=== PATIENT | female | born 1950 | race Caucasian/White ===

== ENCOUNTER 2018-10-18 10:49 | Inpatient (IN) ==
[2018-10-18] MEDS ORDERED: ALBUT/IPRATROP 3MG/0.5MG NEB 3 ML VIAL NEB ONE (11:26)
[2018-10-18] MEDS ORDERED: cefTRIAXone SODIUM 1,000 MG/50 ML BAG IV STA (11:26)
[2018-10-18] MEDS ORDERED: methylPREDNISolone 60 MG in SYRINGE 1 ML IV STA (11:26)
[2018-10-18 11:27] LABS: Hematocrit (blood only) 44.1 % (37-47); Hemoglobin 13.9 g/dL (12.0-16.0); Immature Granulocytes # (auto) 0.03 K/uL (0.00-0.02); Immature Granulocytes % (auto) 0.4 %; Lymphocytes # (auto) 0.48 K/uL (1.2-3.4); Lymphocytes % (auto) 6.9 %; Mean Corpuscular Hgb Conc 31.5 g/dL (32-36); Mean Corpuscular Volume 78.2 fL (80-100); Mean Platelet Volume 10.4 fL (7.4-10.4); Monocytes # (auto) 0.38 K/uL (0.11-0.59); Monocytes % (auto) 5.5 %; Neutrophils # (auto) 6.03 K/uL (1.4-6.5); Neutrophils % (auto) 87.2 %; Platelet Count 198 K/uL (130-400); RDW Coefficient of Variation 17.5 % (11.5-14.5); RDW Standard Deviation 49.4 fL (36.4-46.3); Red Blood Count 5.64 M/uL (4.2-5.4); White Blood Count 6.92 K/uL (4.8-10.8)
--- NOTE | 2018-10-18 11:37 | XRay Report ---
XR chest 1V portable HISTORY: shortness of breah COMPARISON: Chest 10/16/2018. FINDINGS: Emphysema. No pneumothorax. No pleural effusions. The heart is normal in size. Bibasilar in terstitial thickening persists. No new focal lung consolidations. No evidence for pulmonary edema. IMPRESSION: No significant change compared to the prior study. No acute process. Emphysema and bibasilar intersti tial thickening persists. Electronically signed by: Harish Alcantara M.D. 10/18/2018 11:36 AM
[2018-10-18 11:45] LABS: BUN Creatinine Ratio 24.7 (10-20); Blood Urea Nitrogen 13 mg/dl (7-18); Calcium 9.5 mg/dl (8.5-10.1); Carbon Dioxide 35 mmol/L (21-32); Chloride 86 mmol/L (98-107); Creatinine Clr Calc Pharmacy 66.1 ml/min; Est GFR (African American) 116.1; Est GFR (Non-African American) 100.2; Glucose 169 mg/dl (70-99); Potassium 4.3 mmol/L (3.5-5.1); Sodium 126 mmol/L (136-145)
[2018-10-18 11:52] LABS: Troponin I < 0.015 ng/ml (0-0.045)
[2018-10-18] MEDS ORDERED: SODIUM CHLORIDE 0.9% 1000ML 500 ML IV ONE (11:56)
--- NOTE | 2018-10-18 13:49 | History & Physical Report ---
Date of Service October 18, 2018 Assessment & Plan (1) Respiratory distress: Patient with tachypnea, increased work of breathing. Diffuse wheezing in bilateral lung soler. Most likely secondary to acute exacerbation of COPD/Emphysema. Patient with no evidence of PNA, CHF, PTX. Low clinical suspicion for PE. Presently improved after placement of Vapotherm - 30% FiO2, 25 lpm -Admit to PCU -High flow nasal cannula - patient unable to tolerate BiPAP in the past. Goal saturation 88 - 92%, patient is a chronic CO2 retainer. Encourage use of high flow nasal cannula -DuoNeb q 4 hours -Albuterol q 1 hour PRN -Solumedrol 15mg IV TID -Azithromycin 250mg IV daily -Magnesium 1gm IV x 1 dose -Continuous pulse oximetry -Smoking cessation encouraged Present on Admission?: Yes (2) COPD exacerbation: As above -Nebs, steroids, Azithromycin Present on Admission?: Yes (3) Hyponatremia: Patient with hyponatremia in the past. 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 She was on salt tablets in the past but has not been taking them lately. No neurological symptoms or seizures with her Na level of 126. -Salt tablets 1gm po BID -Repeat chemistry in AM -Continue to monitor Present on Admission?: Yes (4) HTN (hypertension): Blood pressure elevated at present in setting of acute respiratory distress -Continue Lisinopril daily -Continue Metoprolol -Continue to monitor Present on Admission?: Yes (5) Anxiety: Chronic -Continue Ativan PRN -Patient may need additional dosing if she becomes acutely anxious Present on Admission?: Yes (6) CAD (coronary artery disease): Patient with no CP, EKG with no evidence of ischemia, troponin negative -Continue ASA 81mg po daily -Continue Metoprolol -Continue Lisinopril F/E/N - Heplock. Monitor electrolytes, Na tablets as above, 1gm Mg as above, check PO4 x 1 and replete if needed, NPO for now while high flow nasal cannula in place. Will advance diet as tolerated to heart healthy with fluid restriction, Docusate PRN Ppx - Continue home Protonix Code - Full Dispo - Admit to PCU Present on Admission?: Yes History of Present Illness Chief Complaint: Respiratory distress, COPD exacerbation Primary Care Provider: Malinda Davis is a 68yo female with oxygen dependent COPD (4L NC at home), HTN, Hyponatremia, active smoker and CAD presenting with respiratory distress. Patient states that she became more short of breath approximately one week ago associated with dry cough and occasional chest tightness. Patient was seen in the ER on 10/16/18 and recommended admission to the hospital for management of SOB/COPD. Patient refused hospital admission at that time. She was treated with DuoNeb, Azithromycin, Magnesium and Solumedrol and discharged home with a steroid taper and Azithromycin. She reports progressive symptoms. Needed to increase her O2 to 5L at home last night. She denies fevers/chills/sweats/weight gain/orthopnea/palpitations/chest pain or allergy symptoms Upon arrival to the ER she was tachypneic in mild respiratory dist ress. She was administered Albuterol neb, Solumedrol and Ceftriaxone. She refused BiPAP as she has been unable to tolerate the mask in the past. She was placed on high flow nasal cannula with improvement in symptoms, however asked to be taken off that as well due to inability to tolerate. ER Course: Albuterol 12mL, Ceftriaxone 1gm, Solumedrol 80mg, NSS x 500mL Allergies Allergy/AdvReac Type Severity Reaction Status Date / Time levofloxacin [From Levaquin] AdvReac Severe "goes Unverified 10/18/18 12:19 crazy" Home Medications Home Medications Medication Instructions Recorded Confirmed Type alendronate 70 mg PO WK 03/12/18 10/18/18 History aspirin 81 mg PO QAM 03/12/18 10/18/18 History docusate sodium [Stool Softener] 100 mg PO QAM 03/12/18 10/18/18 History fluticasone propion-salmeterol 1 puff INHALATION Q12H 03/12/18 10/18/18 History ipratropium-albuterol 1 puff INHALATION Q6H 03/12/18 10/18/18 History ipratropium-albuterol 3 ml INHALATION QID PRN 03/12/18 10/18/18 History lisinopril 20 mg PO QAM 03/12/18 10/18/18 History lorazepam 0.5 mg PO TID PRN 10/20/18 05/28/19 History meloxicam 15 mg PO QAM 03/12/18 10/18/18 History metoprolol succinate 100 mg PO QAM 03/12/18 10/18/18 History pantoprazole 40 mg PO QAM 03/12/18 10/18/18 History acetaminophen [Tylenol Extra 500 mg PO Q6H PRN 08/16/18 10/18/18 History Strength] azithromycin [Zithromax Z-Luis] 250 mg PO DAILY 4 Days #4 tab 10/16/18 10/18/18 Rx prednisone 40 mg PO DAILY #10 tab 10/16/18 10/18/18 Rx Past Med/Surg History Medical History HTN (hypertension) (Chronic) Tobacco abuse (Chronic) Emphysema of lung (Chronic) Hypoxia (Acute) Anxiety H/O: hysterectomy Hyponatremia Asthma (Chronic) COPD (chronic obstructive pulmonary disease) (Chronic) 4L O2 at home Heart attack (Resolved) November 2017 COPD with acute exacerbation (Inactive) Surgical History History of ankle surgery Family History Other COPD (chronic obstructive pulmonary disease) Cancer Social History Preferred Language: Russian Communication Ability: Effective Visual Impairment: No Limitations Hearing Ability: Normal Beliefs That Will Affect Care: None marital status: Current Living Situation: Spouse Other Information That Helps Us Care for You: No Feels Safe at Home: Yes Safety Concerns: Feels Safe At This Time Smoking Status: Current every day smoker Tobacco Type: cigarettes Cigarettes Per Day: 12 Second Hand Exposure: Yes Hx Alcohol Use: Yes Alcohol type: beer Hx Substance Use: No Review of Systems Review of Systems: All systems reviewed & are unremarkable except as noted in HPI & below Physical Exam Physical Exam: General: patient tachypneic with conversational dyspnea, chronically ill in appearance, AA&O x 3 Skin: warm, dry, intact, no rashes or lesions HEENT: NC/AT, PERRL, EOMI, anicteric sclera, conjunctiva without injection, external ear normal to inspection and nontender, nares patent, dry mucus membranes, dentures in place, +white plaques on oral mucosa, neck supple, trachea midline, no LAD, no thyromegaly, no JVD Heart: +S1/S2, regular, no m/r/g Lungs: diminished breath sounds bilaterally, diffuse inspiratory and expiratory wheezing Abd: +BS, soft, NT/ND, no masses/organomegaly/ascites Ext: warm, 2+ pulses in UE/LE bilaterally, no clubbing/cyanosis or edema Neuro: nonfocal, patient AA&O x 4, speech intact, no facial droop, moving all extremities on command with equal strength 5/5 Results & Data Vital Signs (Past 12 Hours) Vital Signs Temp Pulse Pulse Resp BP Pulse Ox 10/18/18 13:01 92 H 29 H 179/98 H 99 10/18/18 13:00 92 H 26 H 99 10/18/18 12:31 88 25 H 189/90 H 100 10/18/18 12:30 88 24 100 10/18/18 12:12 82 24 174/80 H 100 10/18/18 12:00 91 H 21 100 10/18/18 11:50 83 22 98 10/18/18 11:30 83 26 H 97 10/18/18 11:01 94 H 20 184/89 H 96 10/18/18 11:00 85 25 H 96 10/18/18 10:58 36.5 C 83 26 H 168/93 H 94 Laboratory Results Lab Results 10/18/18 10/18/18 10/18/18 Range/Units 11:18 11:18 11:18 WBC 6.92 (4.8-10.8) K/uL RBC 5.64 H (4.2-5.4) M/uL Hgb 13.9 (12.0-16.0) g/dL Hct 44.1 (37-47) % MCV 78.2 L (80-100) fL MCH 24.6 L (25-34) pg MCHC 31.5 L (32-36) g/dL RDW Std Deviation 49.4 H (36.4-46.3) fL RDW Coeff of Va 17.5 H (11.5-14.5) % Plt Count 198 (130-400) K/uL MPV 10.4 (7.4-10.4) fL Immature Gran % (Auto) 0.4 % Neut % (Auto) 87.2 % Lymph % (Auto) 6.9 % Ray % (Auto) 5.5 % Eos % (Auto) 0.0 % Baso % (Auto) 0.0 % Immature Gran # (Auto) 0.03 H (0.00-0.02) K/uL Neut # (Auto) 6.03 (1.4-6.5) K/uL Lymph # (Auto) 0.48 L (1.2-3.4) K/uL Ray # (Auto) 0.38 (0.11-0.59) K/uL Eos # (Auto) 0.00 (0-0.5) K/uL Baso # (Auto) 0.00 (0-0.2) K/uL Sodium 126 L D (136-145) mmol/L Potassium 4.3 (3.5-5.1) mmol/L Chloride 86 L (98-107) mmol/L Carbon Dioxide 35 H (21-32) mmol/L Anion Gap 5.0 (3-11) BUN 13 D (7-18) mg/dl Creatinine 0.51 L (0.6-1.2) mg/dl Est Cr Clr Drug Dosing 66.1 ml/min Est GFR ( Amer) 116.1 Est GFR (Non-Af Amer) 100.2 BUN/Creatinine Ratio 24.7 H (10-20) Glucose 169 H (70-99) mg/dl Calcium 9.5 (8.5-10.1) mg/dl Magnesium 2.1 (1.8-2.4) mg/dl Troponin I < 0.015 (0-0.045) ng/ml Diagnostic Findings XR chest 1V portable HISTORY: shortness of breah COMPARISON: Chest 10/16/2018. FINDINGS: Emphysema. No pneumothorax. No pleural effusions. The heart is normal in size. Bibasilar interstitial thickening persists. No new focal lung consolidations. No evidence for pulmonary edema. IMPRESSION: No significant change compared to the prior study. No acute process. Emphysema and bibasilar interstitial thickening persists. Electronically signed by: Harish Alcantara M.D. 10/18/2018 11:36 AM Dictated: 10/18/18 1133 Transcribed: 10/18/18 1133 ECG Additional Comments: The study shows normal sinus rhythm at 85bpm, 1st degree AV block, normal axis, TC=375, QRS=88, WAa=171, no ischemic changes Code Status & VTE Plan Code Status FULL Critical Care Time Critical Care Time: No (1) CAD (coronary artery disease) Associated angina: without angina Coronary Disease-Associated Artery/Lesion type: [place] artery [place] vs. transplanted heart: jena heart Qualified Code(s): I25.10 - Atherosclerotic heart disease of [place] coronary artery without angina pectoris (2) HTN (hypertension) Hypertension type: essential hypertension Qualified Code(s): I10 - Essential (primary) hypertension
[2018-10-18] MEDS ORDERED: ACETAMINOPHEN 500 MG TAB PO PRN (15:14)
[2018-10-18] MEDS ORDERED: MAGNESIUM SULFATE / D5W 1 GM/100 ML BAG IV ONE (15:30)
--- NOTE | 2018-10-18 15:33 | Emergency Department Note ---
Entered by Ashlie Fajardo acting as a scribe for Zackery Cardona MD History of Present Illness General Chief complaint: Respiratory Distress Stated complaint: RESPIRATORY DISTRESS Time Seen by Provider: 10/18/18 11:16 Source: patient and old records reviewed History of Present Illness Provider complaint: respiratory distress Onset (ago): week(s) (over the last few weeks) Location: chest Pain Consistency: + other (worsening) Quality: + other (respiratory distress) Exacerbated By: + movement (walking) Associated symptoms: + cough; no fever/chills The patient is a 68 year old female who presents to the Emergency Department with complaints of worsening respiratory distress over the last few weeks. She states that she is on a Z-pack and steroids and states that she started these ye sterday. She states that she has been using nebulizers frequently. She states that she has not been febrile. She states that she has been coughing more than usual. The patient states that she usually wears 4L of Oxygen. The patient reports that her shortness of breath is exacerbated while she is walking. Review of EMR shows that the patient was seen here on the for a COPD exacerbation and hypoxia. She was advised to stay in the hospital but went home. The patient's blood cultures from 2 days ago are negative. Home Medications Home Medications Medication Instructions Recorded Confirmed Type alendronate 70 mg PO WK 03/12/18 10/18/18 History aspirin 81 mg PO QAM 03/12/18 10/18/18 History docusate sodium [Stool Softener] 100 mg PO QAM 03/12/18 10/18/18 History fluticasone propion-salmeterol 1 puff INHALATION Q12H 03/12/18 10/18/18 History ipratropium-albuterol 1 puff INHALATION Q6H 03/12/18 10/18/18 History ipratropium-albuterol 3 ml INHALATION QID PRN 03/12/18 10/18/18 History lisinopril 20 mg PO QAM 03/12/18 10/18/18 History lorazepam 0.5 mg PO TID PRN 03/12/18 10/18/18 History meloxicam 15 mg PO QAM 03/12/18 10/18/18 History metoprolol succinate 100 mg PO QAM 03/12/18 10/18/18 History pantoprazole 40 mg PO QAM 03/12/18 10/18/18 History acetaminophen [Tylenol Extra 500 mg PO Q6H PRN 08/16/18 10/18/18 History Strength] azithromycin [Zithromax Z-Luis] 250 mg PO DAILY 4 Days #4 tab 10/16/18 10/18/18 Rx prednisone 40 mg PO DAILY #10 tab 10/16/18 10/18/18 Rx Allergies Allergy/AdvReac Type Severity Reaction Status Date / Time levofloxacin [From Levaquin] AdvReac Severe "goes Unverified 10/18/18 12:19 crazy" Past Med/Surg History Medical History HTN (hypertension) (Chronic) Tobacco abuse (Chronic) Emphysema of lung (Chronic) Hypoxia (Acute) Anxiety H/O: hysterectomy Hyponatremia Asthma (Chronic) COPD (chronic obstructive pulmonary disease) (Chronic) 4L O2 at home Heart attack (Resolved) November 2017 COPD with acute exacerbation (Inactive) Surgical History History of ankle surgery Family History Other COPD (chronic obstructive pulmonary disease) Cancer Social History Preferred Language: Maori Communication Ability: Effective Visual Impairment: No Limitations Hearing Ability: Normal Beliefs That Will Affect Care: None marital status: Current Living Situation: Spouse Other Information That Helps Us Care for You: No Feels Safe at Home: Yes Safety Concerns: Feels Safe At This Time Smoking Status: Current every day smoker Tobacco Type: cigarettes Cigarettes Per Day: 12 Second Hand Exposure: Yes Hx Alcohol Use: Yes Alcohol type: beer Hx Substance Use: No Review of Systems See HPI for pertinent positives & negatives. and A total of 10 systems reviewed and were otherwise negative Physical Exam Vital Signs Vital Signs - 24 hr 10/18/18 10:58 10/18/18 11:00 10/18/18 11:01 Temperature 36.5 C Temperature Source Oral Sepsis Recent Fever Within 48 Hours No Sepsis Action Taken by Nursing No Action Required Pulse Rate 83 85 94 H Pulse Rate [Right Apical] Pulse Rate from SpO2 Sensor 84 85 93 H Pulse Rhythm Regular Pulse Strength Normal Respiratory Rate 26 H 25 H 20 Respiratory Effort / Characteristics Non-Labored Spontaneous Respiratory Depth Normal Respiratory Pattern Regular Blood Pressure 168/93 H 184/89 H Blood Pressure Mean 118 120 Blood Pressure Position Lying Pulse Oximetry 94 96 96 Oxygen Delivery Method Nasal Cannula Oxygen Flow Rate 4 10/18/18 11:30 10/18/18 11:50 10/18/18 12:00 Temperature Temperature Source Sepsis Recent Fever Within 48 Hours Sepsis Action Taken by Nursing Pulse Rate 83 91 H Pulse Rate [Right Apical] 83 Pulse Rate from SpO2 Sensor 78 90 Pulse Rhythm Pulse Strength Respiratory Rate 26 H 22 21 Respiratory Effort / Characteristics Spontaneous Short of Breath Respiratory Depth Respiratory Pattern Blood Pressure Blood Pressure Mean Blood Pressure Position Pulse Oximetry 97 98 100 Oxygen Delivery Method Nasal Cannula Oxygen Flow Rate 4 10/18/18 12:12 10/18/18 12:30 10/18/18 12:31 Temperature Temperature Source Sepsis Recent Fever Within 48 Hours Sepsis Action Taken by Nursing Pulse Rate 82 88 88 Pulse Rate [Right Apical] Pulse Rate from SpO2 Sensor 84 88 88 Pulse Rhythm Pulse Strength Respiratory Rate 24 24 25 H Respiratory Effort / Characteristics Respiratory Depth Respiratory Pattern Blood Pressure 174/80 H 189/90 H Blood Pressure Mean 111 123 Blood Pressure Position Pulse Oximetry 100 100 100 Oxygen Delivery Method Oxygen Flow Rate 10/18/18 13:00 10/18/18 13:01 10/18/18 13:02 Temperature Temperature Source Sepsis Recent Fever Within 48 Hours Sepsis Action Taken by Nursing Pulse Rate 92 H 92 H 91 H Pulse Rate [Right Apical] Pulse Rate from SpO2 Sensor 92 H 93 H 92 H Pulse Rhythm Pulse Strength Respiratory Rate 26 H 29 H 30 H Respiratory Effort / Characteristics Respiratory Depth Respiratory Pattern Blood Pressure 179/98 H Blood Pressure Mean 125 Blood Pressure Position Pulse Oximetry 99 99 99 Oxygen Delivery Method Oxygen Flow Rate 10/18/18 13:30 10/18/18 13:31 Temperature Temperature Source Sepsis Recent Fever Within 48 Hours Sepsis Action Taken by Nursing Pulse Rate 95 H 95 H Pulse Rate [Right Apical] Pulse Rate from SpO2 Sensor 95 H 95 H Pulse Rhythm Pulse Strength Respiratory Rate 26 H 26 H Respiratory Effort / Characteristics Respiratory Depth Respiratory Pattern Blood Pressure 168/105 H Blood Pressure Mean 126 Blood Pressure Position Pulse Oximetry 88 L 84 L Oxygen Delivery Method Oxygen Flow Rate GENERAL: Patient is in mild to moderate respiratory distress. HEENT: No acute trauma, normocephalic atraumatic, mucous membranes moist, no nasal congestion, no scleral icterus. NECK: No stridor, no adenopathy, no meningismus, trachea is midline. LUNGS: Increased respiratory rate. Wheezing bilaterally. Diminished breath sounds bilaterally. Shortness of breath with speaking. Mild to moderate respiratory distress. HEART: Without murmurs gallops or rubs, regular rate and rhythm. ABDOMEN: Soft, nontender, bowel sounds positive, no hernias, no peritonitis. EXTREMITIES: No cyanosis or edema, full range of motion of all the joints without pain or difficulty, no signs for acute trauma. NEUROLOGIC: Oriented x 3, no acute motor or sensory deficits, no focal weakness. SKIN: No rash, no jaundice, no diaphoresis. Course 1121: The patient was evaluated in room C6. A history and physical were per formed. 1202: I updated the patient who verbalized agreement and understanding of the treatment plan. 1218: I discussed the patient's case with Dr. Peter Rogers who will evaluate the patient for further management. 1321: The patient is on Vapotherm. Consultations Consultation #1: Dr. Peter Rogers Time: 12:18 Administered Medications Albuterol (Duoneb) 3 ml NEB Q4R RAJAN Stop: 11/17/18 15:59 Last Admin: 10/18/18 15:43 Dose: 3 ml Documented by: [id number] Nicotine (Nicoderm Cq) 21 mg TD QAM RAJAN Stop: 11/17/18 15:13 Last Admin: 10/18/18 16:31 Dose: 21 mg Documented by: [id number] Discontinued Medications Albuterol (Duoneb) 12 ml NEB ONE ONE Stop: 10/18/18 11:27 Last Admin: 10/18/18 11:49 Dose: 12 ml Documented by: [id number] Ceftriaxone Sodium (Rocephin) 1,000 mg in 50 mls @ 100 mls/hr IV NOW STA Stop: 10/18/18 11:55 Last Infusion: 10/18/18 12:47 Dose: 0 mls/hr Documented by: [id number] Admin: 10/18/18 12:12 Dose: 100 mls/hr Documented by: [id number] Methylprednisolone 60 mg/ (Syringe) 1.96 mls @ 1.5 mls/min IV NOW STA Stop: 10/18/18 11:27 Last Admin: 10/18/18 12:12 Dose: Not Given Documented by: [id number] Sodium Chloride (Nss 1000ml) 500 mls @ 999 mls/hr IV .Q31M ONE Stop: 10/18/18 12:26 Last Infusion: 10/18/18 12:47 Dose: 0 mls/hr Documented by: [id number] Admin: 10/18/18 12:12 Dose: 999 mls/hr Documented by: [id number] Magnesium Sulfate/Dextrose (Magnesium Sulfate / D5w) 1 gm in 100 mls @ 100 mls/hr IV TODAY@1530 ONE Stop: 10/18/18 16:29 Last Admin: 10/18/18 16:31 Dose: 100 mls/hr Documented by: [id number] Methylprednisolone (Solumedrol) Confirm Administered Dose 80 mg .ROUTE .STK-MED ONE Stop: 10/18/18 12:12 Last Admin: 10/18/18 12:12 Dose: 60 mg Documented by: [id number] Medical Decision Making Differential Diagnosis Differentials include COPD exacerbation, bronchitis, pneumonia, CHF, anemia, electrolyte imbalance, and PR. Medical Records Attestation: I reviewed the patient's medical records. Home Medications Current Medication List: was personally reviewed by me Laboratory Data Attestation: I reviewed the patient's lab results. Result diagrams: 10/18/18 11:18 10/18/18 11:18 Lab Results 10/18/18 10/18/18 10/18/18 Range/Units 11:18 11:18 11:18 WBC 6.92 (4.8-10.8) K/uL RBC 5.64 H (4.2-5.4) M/uL Hgb 13.9 (12.0-16.0) g/dL Hct 44.1 (37-47) % MCV 78.2 L (80-100) fL MCH 24.6 L (25-34) pg MCHC 31.5 L (32-36) g/dL RDW Std Deviation 49.4 H (36.4-46.3) fL RDW Coeff of Va 17.5 H (11.5-14.5) % Plt Count 198 (130-400) K/uL MPV 10.4 (7.4-10.4) fL Immature Gran % (Auto) 0.4 % Neut % (Auto) 87.2 % Lymph % (Auto) 6.9 % [place] % (Auto) 5.5 % Eos % (Auto) 0.0 % Baso % (Auto) 0.0 % Immature Gran # (Auto) 0.03 H (0.00-0.02) K/uL Neut # (Auto) 6.03 (1.4-6.5) K/uL Lymph # (Auto) 0.48 L (1.2-3.4) K/uL [place] # (Auto) 0.38 (0.11-0.59) K/uL Eos # (Auto) 0.00 (0-0.5) K/uL Baso # (Auto) 0.00 (0-0.2) K/uL Sodium 126 L D (136-145) mmol/L Potassium 4.3 (3.5-5.1) mmol/L Chloride 86 L (98-107) mmol/L Carbon Dioxide 35 H (21-32) mmol/L Anion Gap 5.0 (3-11) BUN 13 D (7-18) mg/dl Creatinine 0.51 L (0.6-1.2) mg/dl Est Cr Clr Drug Dosing 66.1 ml/min Est GFR ( Amer) 116.1 Est GFR (Non-Af Amer) 100.2 BUN/Creatinine Ratio 24.7 H (10-20) Glucose 169 H (70-99) mg/dl Calcium 9.5 (8.5-10.1) mg/dl Phosphorus (2.5-4.9) mg/dl Magnesium 2.1 (1.8-2.4) mg/dl Troponin I < 0.015 (0-0.045) ng/ml 10/18/18 Range/Units 11:18 WBC (4.8-10.8) K/uL RBC (4.2-5.4) M/uL Hgb (12.0-16.0) g/dL Hct (37-47) % MCV (80-100) fL MCH (25-34) pg MCHC (32-36) g/dL RDW Std Deviation (36.4-46.3) fL RDW Coeff of Va (11.5-14.5) % Plt Count (130-400) K/uL MPV (7.4-10.4) fL Immature Gran % (Auto) % Neut % (Auto) % Lymph % (Auto) % [place] % (Auto) % Eos % (Auto) % Baso % (Auto) % Immature Gran # (Auto) (0.00-0.02) K/uL Neut # (Auto) (1.4-6.5) K/uL Lymph # (Auto) (1.2-3.4) K/uL [place] # (Auto) (0.11-0.59) K/uL Eos # (Auto) (0-0.5) K/uL Baso # (Auto) (0-0.2) K/uL Sodium (136-145) mmol/L Potassium (3.5-5.1) mmol/L Chloride (98-107) mmol/L Carbon Dioxide (21-32) mmol/L Anion Gap (3-11) BUN (7-18) mg/dl Creatinine (0.6-1.2) mg/dl Est Cr Clr Drug Dosing ml/min Est GFR ( Amer) Est GFR (Non-Af Amer) BUN/Creatinine Ratio (10-20) Glucose (70-99) mg/dl Calcium (8.5-10.1) mg/dl Phosphorus 2.2 L (2.5-4.9) mg/dl Magnesium (1.8-2.4) mg/dl Troponin I (0-0.045) ng/ml Imaging Data Radiologist's Impression: Radiology results as stated below per my review and the radiologist's interpretation: XR chest 1V portable HISTORY: shortness of breah COMPARISON: Chest 10/16/2018. FINDINGS: Emphysema. No pneumothorax. No pleural effusions. The heart is normal in size. Bibasilar interstitial thickening persists. No new focal lung consolidations. No evidence for pulmonary edema. IMPRESSION: No significant change compared to the prior study. No acute process. Emphysema a nd bibasilar interstitial thickening persists. Electronically signed by: Harish Alcantara M.D. 10/18/2018 11:36 AM ECG Data Attestation: I personally reviewed and interpreted this ECG as follows: Indication: SOB/dyspnea Rate (beats per minute): 85 Rhythm: normal sinus Findings: no PVC and no ST elevation Blood Pressure Blood Pressure Findings: Elevated blood pressure Blood Pressure Disposition: further management by hospitalist [facility] Narrative There is no leukocytosis or concerning anemia. Renal panel testing shows a low sodium at 126, she has had a low sodium value in the past, this is a drop from just a few days ago. No kidney failure. EKG shows a sinus rhythm, no acute ischemia. Cardiac enzyme testing x1 is not consistent with acute cardiac injury. Chest film shows chronic findings, no CHF, no pneumothorax, no obvious new pneumonia. On exam, the patient appeared to be in some mild to moderate respiratory distress. She was speaking in short sentences with an increased respiratory rate. The patient was aggressively managed. She received IV Solu-Medrol, IV ceftriaxone. She received IV saline. She was given a 1 hour DuoNeb. I did suggest BiPAP but the patient refused. The patient, despite the nebulizer treatment, was still quite winded. She did consent to Vapotherm treatment, this was initiated by respiratory. Patient still did not want to attempt BiPAP. The patient deserves a hospital stay. She has an acute bronchitis with an exacerbation of her COPD. She presents in mild to moderate respiratory distress. She is hyponatremic. Hospitalization is warranted. I spoke to the patient and case management. The on-call hospitalist was cons ulted. Impression & Plan Respiratory distress, Hyponatremia, COPD exacerbation, Failure of outpatient treatment Critical Care Time I have personally spent 35 minutes of critical care time in the direct management of this patient. This includes bedside care, interpretation of diagnostic studies, and testing, discussion with consultants, patient, and family members, and other required patient management activities. This 35 minutes is in excess of all separately billable procedures. Critical Care Time: Yes Total Critical Care Time: 35 Discharge Plan Visit Data *Final* Discharge Date/Time: 10/18/18 14:55 Chief Complaint: Respiratory Distress Stated Complaint: RESPIRATORY DISTRESS ED Provider: Zackery Cardona Discharge Problem: Respiratory distress, Hyponatremia, COPD exacerbation, Failure of outpatient treatment Patient Disposition: Admitted As Inpatient Discharge Instructions Interventions: ED Discharge Assessment Last Done: 10/18/18 14:55 The surajibe's documentation has been prepared under my direction and personally reviewed by me in its entirety. I confirm that the note above accurately reflects all work, treatment, procedures, and medical decision making performed by me.
[2018-10-18] MEDS: ALBUT/IPRATROP 3MG/0.5MG NEB 3 ML VIAL NEB SCH ×3 (15:43→22:40)
[2018-10-18] MEDS: NICOTINE 21 MG/24 HR TDSY TD SCH (16:31)
[2018-10-18] MEDS: LORazepam 0.5 MG TAB PO PRN (17:03)
[2018-10-18] MEDS: ALBUTEROL 0.5% NEB SOLN 2.5 MG/0.5 ML VIAL NEB PRN ×2 (17:12→20:45)
[2018-10-18] MEDS ORDERED: methylPREDNISolone 15 MG in SYRINGE 0 ML IV ONE (20:00)
[2018-10-18] MEDS: SODIUM CHLORIDE 1 GM TABLET PO SCH (20:15)
[2018-10-18] MEDS ORDERED: methylPREDNISolone 15 MG in SYRINGE 0 ML IV SCH (21:00)
[2018-10-19] MEDS: ALBUTEROL 0.5% NEB SOLN 2.5 MG/0.5 ML VIAL NEB PRN (00:03)
[2018-10-19] MEDS: LORazepam 0.5 MG TAB PO PRN (00:31)
[2018-10-19] MEDS ORDERED: methylPREDNISolone 80 MG in SYRINGE 0 ML IV ONE (01:00)
[2018-10-19] MEDS: ALBUTEROL 0.083% NEBU SOLN 3 ML VIAL NEB PRN ×3 (01:59→05:44)
[2018-10-19] MEDS: ALBUT/IPRATROP 3MG/0.5MG NEB 3 ML VIAL NEB SCH ×5 (03:14→19:08)
[2018-10-19] MEDS ORDERED: methylPREDNISolone 30 MG in SYRINGE 0 ML IV SCH (04:00)
[2018-10-19] MEDS: LORazepam 1 MG/2 ML VIAL IV PRN ×2 (06:07→12:18)
[2018-10-19 06:58] LABS: Hematocrit (blood only) 36.3 % (37-47); Hemoglobin 11.7 g/dL (12.0-16.0); Immature Granulocytes # (auto) 0.01 K/uL (0.00-0.02); Immature Granulocytes % (auto) 0.2 %; Lymphocytes # (auto) 0.44 K/uL (1.2-3.4); Lymphocytes % (auto) 8.2 %; Mean Corpuscular Hgb Conc 32.2 g/dL (32-36); Mean Corpuscular Volume 77.2 fL (80-100); Mean Platelet Volume 9.6 fL (7.4-10.4); Monocytes # (auto) 0.18 K/uL (0.11-0.59); Monocytes % (auto) 3.3 %; Neutrophils # (auto) 4.76 K/uL (1.4-6.5); Neutrophils % (auto) 88.3 %; Platelet Count 157 K/uL (130-400); RDW Coefficient of Variation 17.1 % (11.5-14.5); RDW Standard Deviation 48.9 fL (36.4-46.3); White Blood Count 5.39 K/uL (4.8-10.8)
[2018-10-19 07:31] LABS: BUN Creatinine Ratio 34.8 (10-20); Calcium 8.3 mg/dl (8.5-10.1); Creatinine Clr Calc Pharmacy 109.1 ml/min; Est GFR (African American) 136.8; Potassium 4.1 mmol/L (3.5-5.1)
[2018-10-19] MEDS: METOPROLOL SUCC 50MG EXT REL TAB PO SCH (08:55)
[2018-10-19] MEDS: SODIUM CHLORIDE 1 GM TABLET PO SCH ×2 (08:56→21:45)
[2018-10-19] MEDS: NICOTINE 21 MG/24 HR TDSY TD SCH (08:56)
[2018-10-19] MEDS: methylPREDNISolone 60 MG in SYRINGE 0 ML IV SCH ×3 (08:56→21:44)
[2018-10-19] MEDS: LISINOPRIL 20 MG TAB PO SCH (08:56)
[2018-10-19] MEDS ORDERED: MELOXICAM 7.5 MG TAB PO SCH (09:00)
[2018-10-19] MEDS ORDERED: PANTOprazole 40 MG TAB PO SCH (09:00)
[2018-10-19] MEDS ORDERED: DOCUSATE SODIUM 100 MG CAP PO SCH (09:00)
[2018-10-19] MEDS ORDERED: ASPIRIN 81 MG ECTAB PO SCH (09:00)
[2018-10-19] MEDS: AZITHROMYCIN 250 MG in DEXTROSE 5% 250 ML IV SCH (09:18)
[2018-10-19] MEDS ORDERED: HydrALAZINE 10 MG TAB PO PRN (10:55)
--- NOTE | 2018-10-19 13:04 | Hospitalist Progress Note ---
Date of Service October 19, 2018 Assessment & Plan (1) Respiratory distress: Patient with tachypnea, increased work of breathing. Diffuse wheezing in bilateral lung soler on admission. Most likely secondary to acute exacerbation of COPD/Emphysema. Patient with no evidence of PNA, CHF, PTX. Was initially on Vapotherm - 30% FiO2, 25 lpm. - Continue DuoNeb standing and PRN, Solumedrol, & Azithromycin - Smoking cessation encouraged - Down to 5L NC the morning of 10/19, but needed high flow again in the afternoon. (2) COPD exacerbation: As above. Chronic respiratory failure with hypoxia. -Nebs, steroids, Azithromycin (3) Hyponatremia: Patient with hyponatremia in the past. 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 She was on salt tablets in the past but has not been taking them lately. No neurological symptoms or seizures with her Na level of 126. - Salt tablets 1gm po BID - On 10/19, Na was up to 129. (4) HTN (hypertension): Blood pressure elevated at present in setting of acute respiratory distress. - Continue Lisinopril daily - Continue Metoprolol - Hydralazine PRN (5) Anxiety: Chronic. - Continue Ativan PRN - Patient may need additional dosing if she becomes acutely anxious (6) CAD (coronary artery disease): Patient with no CP, EKG with no evidence of ischemia, & troponin negative. - Continue ASA 81mg po daily - Continue metoprolol - Continue lisinopril (7) DVT prophylaxis: SCDs - Low DVT risk per admission calculator Subjective Still short of breath. Not much better from when she came in. Review of Systems Review of Systems: All systems reviewed & are unremarkable except as noted in HPI & below Physical Exam Constitutional: WD/WN, vitals as above Eyes: EOM intact bilaterally; no conjunctival abnormality ENMT: external ear and nose normal, oropharynx normal Neck: trachea midline, no thyromegaly normal visual inspection Respiratory: normal respiratory effort, lungs clear to auscultation + labored breathing, + uses accessory muscles and + prolonged expiratory phase; + not able to speak in complete sentence Auscultation: + diminished lung sounds and + rhonchi; no wheezes Cardiovascular: RRR, no murmur, no edema Gastrointestinal (Abdomen): Inspection/Auscultation: abdomen normal to inspection; abdomen not distended Musculoskeletal: no cyanosis or clubbing, extremities motor strength 5/5 Skin: no rashes, warm and dry Neurologic: moves all extremities and awake Psychiatric: Orientation: alert, oriented to person and cooperative Results & Data Vital Signs (Past 12 Hours) Vital Signs Temp Pulse Pulse Resp BP BP Pulse Ox 10/19/18 11:05 88 28 H 97 10/19/18 10:17 36.8 C 86 22 193/96 H 201/89 H 97 10/19/18 08:30 10/19/18 07:29 36.6 C 92 H 18 174/88 H 99 10/19/18 07:05 103 H 10/19/18 07:00 55 L 26 H 95 10/19/18 05:46 94 H 26 H 92 10/19/18 04:41 100 H 26 H 90 10/19/18 04:20 36.8 C 88 19 175/90 H 97 10/19/18 03:15 88 24 98 10/19/18 02:00 92 H 20 95 Pulse Ox 10/19/18 11:05 10/19/18 10:17 10/19/18 08:30 98 10/19/18 07:29 10/19/18 07:05 10/19/18 07:00 10/19/18 05:46 10/19/18 04:41 10/19/18 04:20 10/19/18 03:15 10/19/18 02:00 (1) HTN (hypertension) Hypertension type: essential hypertension Qualified Code(s): I10 - Essential (primary) hypertension (2) CAD (coronary artery disease) Coronary Disease-Associated Artery/Lesion type: [place] artery Platinum vs. transplanted heart: [place] heart Associated angina: without angina Qualified Code(s): I25.10 - Atherosclerotic heart disease of [place] coronary artery without angina pectoris
[2018-10-19 15:25] LABS: HCO3 ABG 38 mmol/L (19-24); Oxygen Saturation ABG 93.6 % (90-95); PCO2 ABG 67 mmHg (35-46); PO2 ABG 69 mm/Hg (80-95); pH ABG 7.37 (7.35-7.45)
[2018-10-19] MEDS ORDERED: HydrALAZINE HCL 20 MG/ML VIAL IV ONE (15:48)
[2018-10-19] MEDS ORDERED: HydrALAZINE HCL 20 MG/ML VIAL ONE (15:49)
[2018-10-19 16:20] LABS: Allen Test Pos (Pos)
--- NOTE | 2018-10-19 16:59 | Critical Care Consultation ---
Date of Consultation October 19, 2018 Assessment & Plan (1) Anxiety: (2) Bronchitis: (3) Respiratory distress: (4) Hyponatremia: (5) Acute on chronic respiratory failure with hypoxia and hypercapnia: (6) Failure of outpatient treatment: (7) Admitted to intensive care unit: 68 yo female patient with known CPOD admitted with acute on chronic respiratory failure likely secondary to COPD continued tobacco abuse and hypertensive urgency. Neurology Will attempt a precedex drip at low dose. ativan 0.5 mg PRN TID respiratory BIPAP / with 40% FIO2 continuous nebulization add symbicort high dose for the LABA effect continue solumedrol 60 mg IV Q6 add daliresp 250 mg PO daily continue duoneb Q4R CV hydralazine to control BP if precedex does not achieve SBP 130/80 continue home meds of lisinopril 20 mg daily and ASA 81 mg daily Will check LDL GI NPO for now pantoprazole 40 mg PO renal FU and replete lyes maintian UO >0.5 ml/Kg-hr ID will continue emperic zithromax DVT prophylaxis with lovenox 30 mg daily she has PIV Will monitor in ICU CCT is 50 minutes History of Present Illness Reason for Consultation: Acute on chronic respiratory failure Requesting Physician: Adama Bai MD Attending Physician: Isidoro Bai MD History of Present Illness This is a 68 yo female patient who is reported to have COPD on home O2 at 4 lit/min, HTn, CAD and continues to smoke. The history is obtained from the chart as patient is now placed on BIPAP. She developed acute worsening of SOB about a week ago and visited the ED where she got steroids Magnesium, solumedrol, nebulizers and was discharged on prednisone taper and zithromax in addition to her home meds of advair 500/50 on 10/16/18 However, she failed to improve and was increasing her O2 to 5lpm yesterday so she was admitted and placed on IV steroids duonebs zothromax and did not tolerate BIPAP or high flow. She had received a dose of ceftriaxone in the ED. She continued to fair bad on the floor and this afternoon she was wheezing and using accessory muscles so we brought her to the ED and placed her on BIPAP as well as continuous nebulization. Patient indicates she has no cp or abdominal pain but is SOB. Allergies Allergy/AdvReac Type Severity Reaction Status Date / Time levofloxacin [From Levaquin] AdvReac Severe "goes Unverified 10/18/18 12:19 crazy" Home Medications Home Medications Medication Instructions Recorded Confirmed Type alendronate 70 mg PO WK 03/12/18 10/18/18 History aspirin 81 mg PO QAM 03/12/18 10/18/18 History docusate sodium [Stool Softener] 100 mg PO QAM 03/12/18 10/18/18 History fluticasone propion-salmeterol 1 puff INHALATION Q12H 03/12/18 10/18/18 History ipratropium-albuterol 1 puff INHALATION Q6H 03/12/18 10/18/18 History ipratropium-albuterol 3 ml INHALATION QID PRN 03/12/18 10/18/18 History lisinopril 20 mg PO QAM 03/12/18 10/18/18 History lorazepam 0.5 mg PO TID PRN 03/12/18 10/18/18 History meloxicam 15 mg PO QAM 03/12/18 10/18/18 History metoprolol succinate 100 mg PO QAM 03/12/18 10/18/18 History pantoprazole 40 mg PO QAM 03/12/18 10/18/18 History acetaminophen [Tylenol Extra 500 mg PO Q6H PRN 08/16/18 10/18/18 History Strength] azithromycin [Zithromax Z-Luis] 250 mg PO DAILY 4 Days #4 tab 10/16/18 10/18/18 Rx prednisone 40 mg PO DAILY #10 tab 10/16/18 10/18/18 Rx Patient History Medical History HTN (hypertension) (Chronic) Tobacco abuse (Chronic) Emphysema of lung (Chronic) Hypoxia (Acute) Anxiety H/O: hysterectomy Hyponatremia Asthma (Chronic) COPD (chronic obstructive pulmonary disease) (Chronic) 4L O2 at home Heart attack (Resolved) November 2017 COPD with acute exacerbation (Inactive) Surgical History History of ankle surgery Family History Other COPD (chronic obstructive pulmonary disease) Cancer Social History Preferred Language: Gabonese Communication Ability: Effective Visual Impairment: No Limitations Hearing Ability: Normal Beliefs That Will Affect Care: None marital status: Current Living Situation: Spouse Other Information That Helps Us Care for You: No Feels Safe at Home: Yes Safety Concerns: Feels Safe At This Time Smoking Status: Current every day smoker Tobacco Type: cigarettes Cigarettes Per Day: 12 Second Hand Exposure: Yes Hx Alcohol Use: Yes Alcohol type: beer Hx Substance Use: No Review of Systems Review of Systems: Unobtainable due to mental health condition Physical Exam Physical Exam: cachectic lady with use of accessory muscles in moderate distress Eyes: PERRL, conjunctivae normal, anicteric sclerae Neck: trachea midline, no thyromegaly Respiratory: + labored breathing, + retractions and + uses accessory muscles Auscultation: + rhonchi Cardiovascular: Rate/Rhythm: regular rate Heart Sounds: normal S1 and normal S2 Gastrointestinal (Abdomen): Inspection/Auscultation: abdomen normal to inspection and normal bowel sounds Musculoskeletal: no cyanosis or clubbing, extremities motor strength 5/5 Neurologic: anxious and in distress but moves all 4 extremities to commands Results & Data Vital Signs (Past 12 Hours) Vital Signs Temp Pulse Pulse Resp BP BP Pulse Ox 10/19/18 15:48 195/92 H 10/19/18 15:20 89 26 H 93 10/19/18 14:59 37.2 C 86 20 206/107 H 95 10/19/18 14:31 93 H 212/110 H 10/19/18 11:05 88 28 H 97 10/19/18 10:17 36.8 C 86 22 193/96 H 201/89 H 97 10/19/18 08:30 10/19/18 07:29 36.6 C 92 H 18 174/88 H 99 10/19/18 07:05 103 H 10/19/18 07:00 55 L 26 H 95 10/19/18 05:46 94 H 26 H 92 10/19/18 04:41 100 H 26 H 90 Pulse Ox 10/19/18 15:48 10/19/18 15:20 10/19/18 14:59 10/19/18 14:31 10/19/18 11:05 10/19/18 10:17 10/19/18 08:30 98 10/19/18 07:29 10/19/18 07:05 10/19/18 07:00 10/19/18 05:46 10/19/18 04:41
[2018-10-19] MEDS ORDERED: HydrALAZINE HCL 20 MG/ML VIAL IV PRN (17:01)
[2018-10-19] MEDS ORDERED: DEXMEDETOMIDINE HCL 200 MCG in SODIUM CHLORIDE 0.9% 48 ML IV SCH (17:15)
[2018-10-19] MEDS ORDERED: RAPID SEQUENCE INDUCTION BAG ONE (17:45)
[2018-10-19] MEDS ORDERED: PROPOFOL IV EMULSION 10 MG/ML 100 ML VIAL IV ONE (17:58)
[2018-10-19] MEDS ORDERED: PROPOFOL 1,000 MG/100 ML VIAL IV STA (18:26)
[2018-10-19] MEDS ORDERED: MIDAZOLAM HCL 125 MG/250 ML BAG IV STA (18:26)
[2018-10-19] MEDS ORDERED: MIDAZOLAM HCL 125MG/250ML D5W ONE (18:27)
[2018-10-19] MEDS: ROFLUMILAST 500 MCG TAB PO SCH (18:34)
--- NOTE | 2018-10-19 18:37 | XRay Report ---
XR chest 1V portable HISTORY: intubation and NG COMPARISON: Chest 10/10/2018. FINDINGS: The endotracheal tube terminates 2.9 cm from the juan [place]isco. Nasogastric tube terminates below the diaphragm. The tip is not included on this study. Emphysema. No pneumothorax. No pleural effusion s. Mild interstitial thickening which is likely chronic. The heart is normal in size. IMPRESSION: Satisfactory support line placement. Electronically signed by: Harish Alcantara M.D. 10/19/2018 6:36 PM
[2018-10-19 21:51] LABS: iSTAT Allen Test Pass; iSTAT Arterial Blood Gas HCO3 38 meg/L (19-24); iSTAT Carbon Dioxide 39 mEq/l (24-31); iSTAT FiO2 40 %; iSTAT Site R Radial
[2018-10-19] MEDS: BUDESONIDE/FORMOTEROL FUMARATE 160/4.5 60 PUFFS/INHALER INH SCH (22:48)
[2018-10-20] MEDS: PROPOFOL 1,000 MG/100 ML VIAL IV PRN ×2 (01:33→12:20)
[2018-10-20] MEDS: ALBUT/IPRATROP 3MG/0.5MG NEB 3 ML VIAL NEB SCH ×8 (01:45→23:18)
[2018-10-20] MEDS: methylPREDNISolone 60 MG in SYRINGE 0 ML IV SCH ×4 (04:07→21:16)
[2018-10-20 05:47] LABS: Hematocrit (blood only) 36.7 % (37-47); Hemoglobin 11.9 g/dL (12.0-16.0); Mean Corpuscular Hgb Conc 32.4 g/dL (32-36); Mean Corpuscular Volume 75.5 fL (80-100); Mean Platelet Volume 9.7 fL (7.4-10.4); Platelet Count 193 K/uL (130-400); RDW Coefficient of Variation 17.1 % (11.5-14.5); RDW Standard Deviation 47.7 fL (36.4-46.3); Red Blood Count 4.86 M/uL (4.2-5.4); White Blood Count 8.14 K/uL (4.8-10.8)
[2018-10-20 06:05] LABS: BUN Creatinine Ratio 25.5 (10-20); Calcium 8.1 mg/dl (8.5-10.1); Creatinine Clr Calc Pharmacy 49.1 ml/min; Est GFR (African American) 87.7; Est GFR (Non-African American) 75.7
[2018-10-20 07:05] LABS: Potassium 3.4 mmol/L (3.5-5.1)
[2018-10-20] MEDS: BUDESONIDE/FORMOTEROL FUMARATE 160/4.5 60 PUFFS/INHALER INH SCH ×2 (07:13→19:19)
[2018-10-20] MEDS: METOPROLOL SUCC 50MG EXT REL TAB PO SCH (07:58)
[2018-10-20] MEDS: LISINOPRIL 20 MG TAB PO SCH (07:58)
[2018-10-20] MEDS ORDERED: POTASSIUM PHOS 3 MMOL/1 ML INFUSION IV STA (08:46)
[2018-10-20] MEDS ORDERED: POTASSIUM PHOSPHATE 21 MMOL in SODIUM CHLORIDE 0.9% 500 ML IV SCH (09:15)
[2018-10-20] MEDS: ASPIRIN 81 MG CHEW NG SCH (09:37)
[2018-10-20] MEDS: fentaNYL citrate 100 MCG/2 ML VIAL IV PRN ×3 (09:37→14:48)
[2018-10-20] MEDS: DOCUSATE SODIUM SYRUP 100 MG/10 ML UDC NG SCH (09:37)
[2018-10-20] MEDS: AZITHROMYCIN 250 MG in DEXTROSE 5% 250 ML IV SCH (09:37)
[2018-10-20] MEDS: NICOTINE 21 MG/24 HR TDSY TD SCH (09:38)
[2018-10-20] MEDS: ROFLUMILAST 500 MCG TAB PO SCH (09:38)
[2018-10-20] MEDS: SODIUM CHLORIDE 1 GM TABLET PO SCH ×2 (09:38→21:15)
[2018-10-20] MEDS: LANSOPRAZOLE 30 MG SOLTAB NG SCH (09:38)
[2018-10-20 11:04] LABS: iSTAT Art Bld Gas pCO2 Correct 60 mmHg (35-46); iSTAT Art Bld Gas pH Corrected 7.407 (7.35-7.45); iSTAT Arterial Blood Gas pCO2 60 mmHg (35-46); iSTAT Arterial Blood Gas pH 7.41 (7.35-7.45)
[2018-10-20 12:07] LABS: Partial Thromboplastin Ratio 0.9; Partial Thromboplastin Time 24.2 Seconds (21.0-31.0); Prothrombin Time 10.1 Seconds (9.0-12.0)
[2018-10-20] MEDS: HEPARIN SOD 5,000 UNIT/0.5 ML VIAL SQ SCH ×2 (12:28→21:17)
[2018-10-20] MEDS ORDERED: IMPACT LIQD 1.0 CAL 1,000 ML BAG OG SCH (12:30)
--- NOTE | 2018-10-20 12:35 | Critical Care Progress Note ---
Date of Service October 20, 2018 Assessment & Plan (1) Anxiety: (2) Bronchitis: (3) Respiratory distress: (4) Hyponatremia: (5) Acute on chronic respiratory failure with hypoxia and hypercapnia: (6) Failure of outpatient treatment: (7) Admitted to intensive care unit: 68 yo female patient with known CPOD admitted with acute on chronic respiratory failure likely secondary to COPD continued tobacco abuse and hypertensive urgency. Neurology On propfol and fentanyl Will transition to precedex and fentanyl and do SBT respiratory MV RR down to 16 TV 400 PEEP 5 FIO2 now 30% add symbicort high dose for the LABA effect when off vent continue solumedrol 60 mg IV Q6 add daliresp 250 mg PNG daily continue duoneb Q4R CV Hold antihypertensives GI nutrition consult for feeds prevacid via NG renal FU and replete terrell ayala UO >0.5 ml/Kg-hr today K and P were repleted ID will continue emperic zithromax until procalcitonin result FU BC DVT prophylaxis with heparin SC she has PICC line placed Will monitor in ICU CCT is 45 minutes Subjective Patient ended up needing intubation yesterday and was difficult to sedate. However She has adequate pH CO2 and oxygenation. Her vent setting are now at 420 FIo2 30 and RR 20 She is tolerating that. She is unable to offer complaints. PICC line inserted and procalcitonin pending and will adjust antibiotics accordingly Physical Exam Eyes: PERRL, conjunctivae normal, anicteric sclerae Neck: trachea midline, no thyromegaly Respiratory: Auscultation: + rhonchi Intubated sedated and now has clear air entry biaterally she is not breathing over the vent Cardiovascular: Rate/Rhythm: regular rate Heart Sounds: normal S1 and normal S2 Gastrointestinal (Abdomen): Inspection/Auscultation: abdomen normal to inspection and normal bowel sounds Musculoskeletal: no cyanosis or clubbing, extremities motor strength 5/5 Results & Data Vital Signs (Past 12 Hours) Vital Signs Temp Pulse Resp BP Pulse Ox 10/20/18 11:25 36.9 C 95 H 152/90 H 99 10/20/18 11:21 93 H 81/37 L 91 10/20/18 11:12 23 10/20/18 10:30 87 89/55 L 94 10/20/18 10:14 100 H 166/83 H 96 10/20/18 10:00 88 100 10/20/18 09:00 36.7 C 94 H 124/87 98 10/20/18 08:00 91 H 88/56 L 100 10/20/18 07:25 82 20 100 10/20/18 07:00 83 89/57 L 100 10/20/18 06:20 92 H 20 114/66 100 10/20/18 05:15 91 H 20 97 10/20/18 05:00 97 H 20 164/90 H 10/20/18 04:00 36.8 C 79 20 90/57 L 99 10/20/18 03:00 84 81/54 L 99 10/20/18 02:00 89 120/67 98 10/20/18 01:54 86 10/20/18 01:45 94 H 22 97 10/20/18 01:00 78 85/56 L 100
--- NOTE | 2018-10-20 13:03 | XRay Report ---
XR chest 1V portable HISTORY: intubated COMPARISON: Chest 10/19/2018. FINDINGS: Endotracheal tube terminates 3.5 cm from the juan francisco. A right PICC terminates in the expecte d location of the SVC. Nasogastric tube terminates below the diaphragm. The tip is not included on th is study. Mild emphysema. No pneumothorax. No pleural effusions. Mild initial thickening persists. No new focal lung consolidations. IMPRESSION: Satisfactory support line placement. Electronically signed by: Harish Alcantara M.D. 10/20/2018 1:01 PM
--- NOTE | 2018-10-20 13:13 | Hospitalist Progress Note ---
Date of Service October 20, 2018 Assessment & Plan (1) Respiratory distress: Patient with tachypnea, increased work of breathing. Diffuse wheezing in bilateral lung soler on admission. Most likely secondary to acute exacerbation of COPD/Emphysema. Patient with no evidence of PNA, CHF, PTX. Was initially on Vapotherm - 30% FiO2, 25 lpm. - Continue DuoNeb standing and PRN, Solumedrol, & Azithromycin - Smoking cessation encouraged - Down to 5L NC the morning of 10/19, but needed high flow again in the afternoon. - On 10/19, had to go to ICU for increased work of breathing. Trialed high flow & BiPap, but did not tolerate. Intubated overnight. - Mechanical ventillation per pulm/CC (2) COPD exacerbation: As above. Chronic respiratory failure with hypoxia. -Nebs, steroids, Azithromycin (3) Hyponatremia: Patient with hyponatremia in the past. 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 She was on salt tablets in the past but has not been taking them lately. No neurological symptoms or seizures with her Na level of 126. - Salt tablets 1gm po BID - On 10/19, Na was up to 129, now down to 123. -> Will get urine lytes, osms. Fluid restriction as able. (4) HTN (hypertension): Blood pressure elevated at present in setting of acute respiratory distress. - Continue lisinopril daily - Continue metoprolol - Hydralazine PRN (5) Anxiety: Chronic. - Continue Ativan PRN - Patient may need additional dosing if she becomes acutely anxious (6) CAD (coronary artery disease): Patient with no CP, EKG with no evidence of ischemia, & troponin negative. - Continue ASA 81mg po daily - Continue metoprolol - Continue lisinopril (7) Low weight: Underweight/thin, BMI 16.7 kg/m*m (8) DVT prophylaxis: SCDs - Low DVT risk per admission calculator Subjective Intubated. Review of Systems Review of Systems: Unobtainable due to endotracheal tube Physical Exam Constitutional: WD/WN, vitals as above Eyes: EOM intact bilaterally; no conjunctival abnormality ENMT: external ear and nose normal, oropharynx normal Neck: trachea midline, no thyromegaly normal visual inspection Respiratory: normal respiratory effort, lungs clear to auscultation + labored breathing and + prolonged expiratory phase Auscultation: + diminished lung sounds and + rhonchi; no wheezes Cardiovascular: RRR, no murmur, no edema Gastrointestinal (Abdomen): Inspection/Auscultation: abdomen normal to inspection; abdomen not distended Musculoskeletal: no cyanosis or clubbing, extremities motor strength 5/5 Skin: no rashes, warm and dry Neurologic: moves all extremities and awake Psychiatric: Affect: + flat affect Results & Data Vital Signs (Past 12 Hours) Vital Signs Temp Pulse Resp BP Pulse Ox 10/20/18 11:25 36.9 C 95 H 152/90 H 99 10/20/18 11:21 93 H 81/37 L 91 10/20/18 11:12 23 10/20/18 10:30 87 89/55 L 94 10/20/18 10:14 100 H 166/83 H 96 10/20/18 10:00 88 100 10/20/18 09:00 36.7 C 94 H 124/87 98 10/20/18 08:00 91 H 88/56 L 100 10/20/18 07:25 82 20 100 10/20/18 07:00 83 89/57 L 100 10/20/18 06:20 92 H 20 114/66 100 10/20/18 05:15 91 H 20 97 10/20/18 05:00 97 H 20 164/90 H 10/20/18 04:00 36.8 C 79 20 90/57 L 99 10/20/18 03:00 84 81/54 L 99 10/20/18 02:00 89 120/67 98 10/20/18 01:54 86 10/20/18 01:45 94 H 22 97 (1) CAD (coronary artery disease) Associated angina: without angina Coronary Disease-Associated Artery/Lesion type: [place] artery [place] vs. transplanted heart: [place] heart Qualified Code(s): I25.10 - Atherosclerotic heart disease of [place] coronary artery without angina pectoris (2) HTN (hypertension) Hypertension type: essential hypertension Qualified Code(s): I10 - Essential (primary) hypertension
--- NOTE | 2018-10-20 13:27 | Hospitalist Progress Note ---
Date of Service October 20, 2018 Results & Data Vital Signs (Past 12 Hours) Vital Signs Temp Pulse Resp BP Pulse Ox 10/20/18 13:00 84 93/54 L 98 10/20/18 12:00 90 84/54 L 96 10/20/18 11:25 36.9 C 95 H 152/90 H 99 10/20/18 11:21 93 H 81/37 L 91 10/20/18 11:12 23 10/20/18 10:30 87 89/55 L 94 10/20/18 10:14 100 H 166/83 H 96 10/20/18 10:00 88 100 10/20/18 09:00 36.7 C 94 H 124/87 98 10/20/18 08:00 91 H 88/56 L 100 10/20/18 07:25 82 20 100 10/20/18 07:00 83 89/57 L 100 10/20/18 06:20 92 H 20 114/66 100 10/20/18 05:15 91 H 20 97 10/20/18 05:00 97 H 20 164/90 H 10/20/18 04:00 36.8 C 79 20 90/57 L 99 10/20/18 03:00 84 81/54 L 99 10/20/18 02:00 89 120/67 98 10/20/18 01:54 86 10/20/18 01:45 94 H 22 97
--- NOTE | 2018-10-20 14:08 | Operative Report ---
DATE OF OPERATION: 10/19/2018 PROCEDURE: Emergent endotracheal intubation. INDICATIONS: Acute respiratory failure, refractory to BiPAP. SEDATION: Propofol 70 mg were given IV to achieve conscious sedation in this lady. DESCRIPTION OF THE PROCEDURE: The patient was kept on the BIPAP with 100% FIO2 until a saturation of 99% was achieved at which point propofol was given. The mask was removed and a size x3 a video laryngoscope, GlideScope was used to visualize the vocal cord and inserted a 7.5 mm ET tube in between the vocal cords. Exhalation of carbon dioxide was confirmed with qualitative CO2 detection bilateral air entry into the lung soler was noted and absence over the epigastrium was also noted. The tube was fixed at 22 cm to the patient and she was connected to mechanical ventilation. Her saturations remained above 92% throughout the procedure. COMPLICATIONS: None apparent. Post-procedure x-ray shows adequate tip of the tube about 3.6 cm above the juan francisco. CONSENT: Consent was obtained from the patient's as she could not give her own consent. I attest to the content of the Intraoperative Record and any orders documented therein. Any exception s are noted below.
[2018-10-20 14:18] LABS: iSTAT Allen Test Pass; iSTAT Arterial Blood Gas HCO3 33 meg/L (19-24); iSTAT Carbon Dioxide 34 mEq/l (24-31); iSTAT FiO2 30 %; iSTAT Site L Radial
[2018-10-20] MEDS ORDERED: MIDAZOLAM HCL 125MG/250ML D5W ONE (21:09)
[2018-10-20] MEDS: METOPROLOL TARTRATE 25 MG TAB PO SCH (21:15)
[2018-10-20] MEDS ORDERED: MIDAZOLAM HCL 125 MG/250 ML BAG IV PRN (22:57)
[2018-10-21] MEDS: fentaNYL citrate 100 MCG/2 ML VIAL IV PRN (01:44)
[2018-10-21] MEDS: methylPREDNISolone 60 MG in SYRINGE 0 ML IV SCH ×4 (03:07→20:39)
[2018-10-21] MEDS: ALBUT/IPRATROP 3MG/0.5MG NEB 3 ML VIAL NEB SCH ×6 (03:29→23:15)
[2018-10-21 04:18] LABS: Hematocrit (blood only) 29.4 % (37-47); Lymphocytes % (auto) 4.1 %; Mean Corpuscular Volume 72.8 fL (80-100); Mean Platelet Volume 9.2 fL (7.4-10.4); Monocytes # (auto) 0.37 K/uL (0.11-0.59); Monocytes % (auto) 5.1 %; Neutrophils # (auto) 6.65 K/uL (1.4-6.5); Neutrophils % (auto) 90.8 %; Platelet Count 134 K/uL (130-400); RDW Coefficient of Variation 17.4 % (11.5-14.5); RDW Standard Deviation 46.8 fL (36.4-46.3); Red Blood Count 4.04 M/uL (4.2-5.4); White Blood Count 7.32 K/uL (4.8-10.8)
[2018-10-21] MEDS: PROPOFOL 1,000 MG/100 ML VIAL IV PRN (04:35)
[2018-10-21 04:37] LABS: BUN Creatinine Ratio 41.4 (10-20); Calcium 7.7 mg/dl (8.5-10.1); Creatinine Clr Calc Pharmacy 48.5 ml/min; Est GFR (African American) 96.3; Est GFR (Non-African American) 83.1; Potassium 3.5 mmol/L (3.5-5.1)
[2018-10-21 04:38] LABS: Phosphorus 2.5 mg/dl (2.5-4.9)
[2018-10-21 05:34] LABS: iSTAT Allen Test Pass; iSTAT Arterial Blood Gas HCO3 33 meg/L (19-24); iSTAT Carbon Dioxide 35 mEq/l (24-31); iSTAT FiO2 30 %; iSTAT Site L Radial
[2018-10-21] MEDS: HEPARIN SOD 5,000 UNIT/0.5 ML VIAL SQ SCH ×3 (05:36→20:56)
[2018-10-21] MEDS ORDERED: CALCIUM GLUCONATE 10% 1,000 MG in SODIUM CHLORIDE 0.9% 50 ML IV STA (06:04)
--- NOTE | 2018-10-21 07:04 | XRay Report ---
XR chest 1V portable CLINICAL HISTORY: Intubation. COMPARISON STUDY: Chest radiograph October 20, 2018. FINDINGS: The tip of the nasogastric tube is below the lower aspect of this image but at least within the body of the stomach. Tip of endotracheal tube is 2.5 cm above the juan francisco. Tip of right PICC proj ects over the distal SVC. Emphysema is noted. There is no pneumothorax or pleural effusion. There is no consolidation to suggest pneumonia. There is no evidence for pulmonary edema. IMPRESSION: 1. Satisfactory positioning of lines and tubes. 2. No acute cardiopulmonary findings. 3. Emphysema. Electronically signed by: Dieudonne Gaines M.D. 10/21/2018 7:03 AM
[2018-10-21] MEDS: BUDESONIDE/FORMOTEROL FUMARATE 160/4.5 60 PUFFS/INHALER INH SCH ×2 (07:09→20:40)
[2018-10-21] MEDS: SODIUM CHLORIDE 1 GM TABLET PO SCH ×2 (08:10→20:39)
[2018-10-21] MEDS: NICOTINE 21 MG/24 HR TDSY TD SCH (08:11)
[2018-10-21] MEDS: DOCUSATE SODIUM SYRUP 100 MG/10 ML UDC NG SCH (08:12)
[2018-10-21] MEDS: ASPIRIN 81 MG CHEW NG SCH (08:12)
[2018-10-21] MEDS: LANSOPRAZOLE 30 MG SOLTAB NG SCH (08:13)
[2018-10-21] MEDS: METOPROLOL TARTRATE 25 MG TAB PO SCH ×2 (08:13→20:39)
[2018-10-21] MEDS: ROFLUMILAST 500 MCG TAB PO SCH (08:14)
[2018-10-21] MEDS ORDERED: fentaNYL DRIP 1,250 MCG/250 ML BAG IV SCH (08:27)
[2018-10-21] MEDS: AZITHROMYCIN 250 MG in DEXTROSE 5% 250 ML IV SCH (08:38)
[2018-10-21] MEDS: DEXMEDETOMIDINE HCL 200 MCG in SODIUM CHLORIDE 0.9% 48 ML IV SCH ×3 (08:49→20:40)
[2018-10-21] MEDS: LISINOPRIL 20 MG TAB PO SCH (11:00)
[2018-10-21 11:32] LABS: iSTAT Art Bld Gas pCO2 Correct 53 mmHg (35-46); iSTAT Art Bld Gas pH Corrected 7.396 (7.35-7.45); iSTAT Arterial Blood Gas pCO2 53 mmHg (35-46); iSTAT Arterial Blood Gas pH 7.39 (7.35-7.45)
[2018-10-21 11:33] LABS: Patient Temperature 36.9
[2018-10-21 12:01] LABS: iSTAT Art Bld Gas pH Corrected 7.418 (7.35-7.45); iSTAT Arterial Blood Gas pCO2 52 mmHg (35-46); iSTAT Arterial Blood Gas pH 7.41 (7.35-7.45)
[2018-10-21 12:02] LABS: iSTAT Art Bld Gas pCO2 Correct 51 mmHg (35-46)
--- NOTE | 2018-10-21 12:05 | Hospitalist Progress Note ---
Date of Service October 21, 2018 Assessment & Plan (1) Respiratory distress: Patient with tachypnea, increased work of breathing. Diffuse wheezing in bilateral lung soler on admission. Most likely secondary to acute exacerbation of COPD/Emphysema. Patient with no evidence of PNA, CHF, PTX. Was initially on Vapotherm - 30% FiO2, 25 lpm. - Continue DuoNeb standing and PRN, Solumedrol, & Azithromycin - Smoking cessation encouraged - Down to 5L NC the morning of 10/19, but needed high flow again in the afternoon. - On 10/19, had to go to ICU for increased work of breathing. Trialed high flow & BiPap, but did not tolerate. Intubated overnight. - Mechanical ventillation per pulm/CC - As of 10/20, still with poor O2 sats and on the vent. Breathing trials per pulm. (2) COPD exacerbation: As above. Chronic respiratory failure with hypoxia. -Nebs, steroids, Azithromycin (3) Hyponatremia: Patient with hyponatremia in the past. 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 She was on salt tablets in the past but has not been taking them lately. No neurological symptoms or seizures with her Na level of 126. - Salt tablets 1gm po BID - On 10/19, Na was up to 129, then down to 123. Up to 126 on 10/21 -> Fluid restriction as able. (4) HTN (hypertension): Blood pressure elevated at present in setting of acute respiratory distress. - Continue lisinopril daily - Continue metoprolol - Hydralazine PRN (5) Anxiety: Chronic. - Continue Ativan PRN - Patient may need additional dosing if she becomes acutely anxious (6) CAD (coronary artery disease): Patient with no CP, EKG with no evidence of ischemia, & troponin negative. - Continue ASA 81mg po daily - Continue metoprolol - Continue lisinopril (7) Low weight: Underweight/thin, BMI 16.7 kg/m*m (8) DVT prophylaxis: Heparin 5000 units Q8h GI - Lansoprazole while intubated Subjective Inbuated. Review of Systems Review of Systems: Unobtainable due to endotracheal tube Physical Exam Constitutional: WD/WN, vitals as above Eyes: EOM intact bilaterally; no conjunctival abnormality ENMT: external ear and nose normal, oropharynx normal Neck: trachea midline, no thyromegaly normal visual inspection Respiratory: normal respiratory effort, lungs clear to auscultation + labored breathing and + prolonged expiratory phase Auscultation: + diminished lung sounds and + rhonchi; no wheezes Cardiovascular: RRR, no murmur, no edema Gastrointestinal (Abdomen): Inspection/Auscultation: abdomen normal to inspection; abdomen not distended Musculoskeletal: no cyanosis or clubbing, extremities motor strength 5/5 Skin: no rashes, warm and dry Neurologic: moves all extremities and awake Psychiatric: Affect: + flat affect Results & Data Vital Signs (Past 12 Hours) Vital Signs Temp Pulse Pulse Resp BP Pulse Ox 10/21/18 07:04 90 19 89 L 10/21/18 06:00 87 19 82/46 L 90 10/21/18 05:22 93 H 19 92 10/21/18 05:00 91 H 20 107/57 L 90 10/21/18 04:00 36.8 C 92 H 18 91/54 L 90 10/21/18 03:34 81 80 16 96 10/21/18 03:00 83 16 91 10/21/18 02:00 85 20 84/45 L 97 10/21/18 01:00 84 16 92/51 L 94 (1) HTN (hypertension) Hypertension type: essential hypertension Qualified Code(s): I10 - Essential (primary) hypertension (2) CAD (coronary artery disease) Coronary Disease-Associated Artery/Lesion type: [place] artery [place] vs. transplanted heart: [place] heart Associated angina: without angina Qualified Code(s): I25.10 - Atherosclerotic heart disease of [place] coronary artery without angina pectoris
--- NOTE | 2018-10-21 12:12 | Critical Care Progress Note ---
Date of Service October 21, 2018 Assessment & Plan (1) Anxiety: (2) Bronchitis: (3) Respiratory distress: (4) Hyponatremia: (5) Acute on chronic respiratory failure with hypoxia and hypercapnia: (6) Failure of outpatient treatment: (7) Admitted to intensive care unit: 68 yo female patient with known CPOD admitted with acute on chronic respiratory failure likely secondary to COPD continued tobacco abuse and hypertensive urgency. Neurology On precedex and fentanyl undergoing SBT. Will extubate based on ABG. THere is a chance she would be reinubated and if so will try ketamin next time for sedation respiratory MV RR down to 16 TV 400 PEEP 5 FIO2 now 30% on SBT now PSV 10 and CPAP 5 FIO2 35% add symbicort high dose for the LABA effect when off vent continue solumedrol 60 mg IV Q6 add daliresp 250 mg PNG daily continue duoneb Q4R CV Hold antihypertensives GI nutrition consult for feeds prevacid via NG renal FU and replete lyes maintian UO >0.5 ml/Kg-hr today K and P were repleted ID will continue emperic zithromax all BC negative DVT prophylaxis with heparin SC she has PICC line placed Will monitor in ICU CCT is 40 minutes Subjective Patient is breathing comfortably on vent while asleep . We wll extubate her on precedex and fentanyl and as soon as she woke up she started hyperventilating. Daughter at the bedside is calming her down. No other issues today. She had PICC line yesterday. She does not complain of pain but looks very apprehensive. Physical Exam Eyes: PERRL, conjunctivae normal, anicteric sclerae Neck: trachea midline, no thyromegaly Respiratory: + labored breathing, + retractions and + uses accessory muscles Auscultation: + rhonchi Cardiovascular: Rate/Rhythm: regular rate Heart Sounds: normal S1 and normal S2 Gastrointestinal (Abdomen): Inspection/Auscultation: abdomen normal to inspection and normal bowel sounds Musculoskeletal: no cyanosis or clubbing, extremities motor strength 5/5 Results & Data Vital Signs (Past 12 Hours) Vital Signs Temp Pulse Pulse Resp BP Pulse Ox 10/21/18 07:04 90 19 89 L 10/21/18 06:00 87 19 82/46 L 90 10/21/18 05:22 93 H 19 92 10/21/18 05:00 91 H 20 107/57 L 90 10/21/18 04:00 36.8 C 92 H 18 91/54 L 90 10/21/18 03:34 81 80 16 96 10/21/18 03:00 83 16 91 10/21/18 02:00 85 20 84/45 L 97 10/21/18 01:00 84 16 92/51 L 94
[2018-10-21 13:12] LABS: iSTAT Allen Test Pass; iSTAT Arterial Blood Gas HCO3 34 meg/L (19-24); iSTAT Carbon Dioxide 36 mEq/l (24-31); iSTAT FiO2 35 %; iSTAT Site L Radial
[2018-10-21] MEDS ORDERED: POTASSIUM PHOS 3 MMOL/1 ML INFUSION IV STA (13:38)
[2018-10-21] MEDS ORDERED: POTASSIUM PHOSPHATE 9 MMOL in SODIUM CHLORIDE 0.9% 250 ML IV ONE (14:00)
[2018-10-21 15:11] LABS: iSTAT Art Bld Gas pCO2 Correct 53 mmHg (35-46); iSTAT Art Bld Gas pH Corrected 7.417 (7.35-7.45); iSTAT Arterial Blood Gas pCO2 53 mmHg (35-46); iSTAT Arterial Blood Gas pH 7.42 (7.35-7.45)
[2018-10-21 15:12] LABS: Patient Temperature 36.9
[2018-10-21] MEDS ORDERED: LORazepam 0.5 MG TAB PO STA (20:48)
[2018-10-21] MEDS ORDERED: LORazepam 0.5 MG TAB ONE (20:53)
[2018-10-22] MEDS: methylPREDNISolone 60 MG in SYRINGE 0 ML IV SCH (03:12)
[2018-10-22] MEDS: ALBUT/IPRATROP 3MG/0.5MG NEB 3 ML VIAL NEB SCH ×3 (04:01→09:21)
[2018-10-22 04:44] LABS: Hemoglobin 10.5 g/dL (12.0-16.0); Immature Granulocytes # (auto) 0.03 K/uL (0.00-0.02); Immature Granulocytes % (auto) 0.4 %; Lymphocytes # (auto) 0.41 K/uL (1.2-3.4); Lymphocytes % (auto) 4.8 %; Mean Corpuscular Hgb Conc 32.8 g/dL (32-36); Mean Corpuscular Volume 74.9 fL (80-100); Mean Platelet Volume 9.7 fL (7.4-10.4); Monocytes # (auto) 0.97 K/uL (0.11-0.59); Monocytes % (auto) 11.4 %; Neutrophils # (auto) 7.13 K/uL (1.4-6.5); Neutrophils % (auto) 83.4 %; Platelet Count 183 K/uL (130-400); RDW Coefficient of Variation 17.6 % (11.5-14.5); RDW Standard Deviation 48.9 fL (36.4-46.3); Red Blood Count 4.27 M/uL (4.2-5.4); White Blood Count 8.54 K/uL (4.8-10.8)
[2018-10-22 05:22] LABS: BUN Creatinine Ratio 41.6 (10-20); Calcium 8.3 mg/dl (8.5-10.1); Creatinine Clr Calc Pharmacy 67.3 ml/min; Est GFR (Non-African American) 98.3; Magnesium 2.1 mg/dl (1.8-2.4); Phosphorus 2.8 mg/dl (2.5-4.9); Potassium 3.9 mmol/L (3.5-5.1)
[2018-10-22] MEDS: HEPARIN SOD 5,000 UNIT/0.5 ML VIAL SQ SCH ×2 (07:06→21:01)
--- NOTE | 2018-10-22 07:24 | XRay Report ---
XR chest 1V portable CLINICAL HISTORY: Respiratory failure. COMPARISON STUDY: 10/21/2018 FINDINGS: The endotracheal tube and nasogastric tubes have been removed. There is a right-sided PICC catheter unchanged in position. The cardiac and mediastinal contours remain stable. The patient is hy perinflated. There is mild chronic interstitial thickening.[ IMPRESSION: 1. Interval removal of the nasogastric tube and endotracheal tube 2. Stable mild interstitial thickening. No evidence of focal pulmonary consolidation Electronically signed by: Luke Chong M.D. 10/22/2018 7:23 AM
--- NOTE | 2018-10-22 08:12 | Critical Care Progress Note ---
Date of Service October 22, 2018 Assessment & Plan (1) Anxiety: (2) Bronchitis: (3) Respiratory distress: (4) Hyponatremia: (5) Acute on chronic respiratory failure with hypoxia and hypercapnia: (6) Failure of outpatient treatment: (7) Admitted to intensive care unit: 68 yo female patient with known CPOD admitted with acute on chronic respiratory failure likely secondary to COPD continued tobacco abuse and hypertensive urgency. Neurology DC precedex and fentanyl. resume her home dose of ativan respiratory titrate O2 to saturation 90-94% no more add symbicort high dose for the LABA effect change solumedrol 60 mg IV Q6 to a slow taper prednisone add daliresp 250 mg PNG daily continue duoneb Q4R CV resume home doses of lisinopril and toprol GI advance diet prevacid via NG renal FU and replete lyes maintian UO >0.5 ml/Kg-hr today K and P were repleted ID will continue emperic zithromax all BC negative DVT prophylaxis with heparin SC she has PICC line placed Will monitor in ICU. IF she remains stable she may go to PCU today CCT is 40 minutes Subjective Patient was extubated yesterday on fentanyl and precedex and is doing better this morning. She is up smiling and has a pink color to her skin. She says she will try to quit smoking and wants the nicotine patches No chest pain no distress. She is at her baseline of prolonged expiratory phase and wheezing.We practiced together pursed lip and diaphragmatic breathing. Physical Exam Constitutional: sitting up smiling not in distress Eyes: PERRL, conjunctivae normal, anicteric sclerae Neck: trachea midline, no thyromegaly Respiratory: Auscultation: + rhonchi prolonged expiratory phase Cardiovascular: Rate/Rhythm: regular rate Heart Sounds: normal S1 and norm al S2 Gastrointestinal (Abdomen): Inspection/Auscultation: abdomen normal to inspection and normal bowel sounds Musculoskeletal: no cyanosis or clubbing, extremities motor strength 5/5 Results & Data Vital Signs (Past 12 Hours) Vital Signs Temp Pulse Pulse Resp BP Pulse Ox 10/22/18 07:21 101 H 16 94 10/22/18 06:00 97 H 97 H 20 183/86 H 92 10/22/18 05:00 88 88 20 163/83 H 92 10/22/18 04:01 88 20 93 10/22/18 04:00 86 86 22 167/89 H 100 10/22/18 03:00 78 78 20 157/83 H 94 10/22/18 02:00 90 90 22 158/90 H 96 10/22/18 01:00 86 86 20 157/77 H 95 10/22/18 00:00 37 C 87 87 20 155/83 H 94 10/21/18 23:18 85 20 94 10/21/18 23:00 83 83 20 146/80 H 94 10/21/18 22:00 83 83 20 146/80 H 94 10/21/18 21:00 37 C 96 H 96 H 20 161/85 H 92 Critical Care Time Critical Care Time: Yes
[2018-10-22] MEDS ORDERED: CALCIUM GLUCONATE 10% 1,000 MG in SODIUM CHLORIDE 0.9% 50 ML IV ONE (08:30)
[2018-10-22] MEDS ORDERED: METOPROLOL SUCC 50MG EXT REL TAB PO SCH (09:00)
[2018-10-22] MEDS: ROFLUMILAST 500 MCG TAB PO SCH (10:03)
[2018-10-22] MEDS: LORazepam 0.5 MG TAB PO PRN ×2 (10:03→18:13)
[2018-10-22] MEDS: SODIUM CHLORIDE 1 GM TABLET PO SCH ×2 (10:03→21:01)
[2018-10-22] MEDS: LANSOPRAZOLE 30 MG SOLTAB NG SCH (10:03)
[2018-10-22] MEDS: AZITHROMYCIN 250 MG in DEXTROSE 5% 250 ML IV SCH (10:03)
[2018-10-22] MEDS: ASPIRIN 81 MG CHEW NG SCH (10:04)
[2018-10-22] MEDS: BUDESONIDE/FORMOTEROL FUMARATE 160/4.5 60 PUFFS/INHALER INH SCH ×2 (10:04→21:00)
[2018-10-22] MEDS: DOCUSATE SODIUM SYRUP 100 MG/10 ML UDC NG SCH (10:04)
[2018-10-22] MEDS: NICOTINE 21 MG/24 HR TDSY TD SCH (10:04)
[2018-10-22] MEDS: LISINOPRIL 20 MG TAB PO SCH (10:04)
[2018-10-22] MEDS: predniSONE 10 MG TABLET PO SCH (10:04)
[2018-10-22] MEDS: DEXMEDETOMIDINE HCL 200 MCG in SODIUM CHLORIDE 0.9% 48 ML IV SCH (10:31)
[2018-10-22] MEDS: ALBUTEROL HFA 8 GM INHALER INH SCH ×4 (12:11→23:47)
--- NOTE | 2018-10-22 12:15 | Hospitalist Progress Note ---
Date of Service October 22, 2018 Assessment & Plan (1) Respiratory distress: Patient with tachypnea, increased work of breathing. Diffuse wheezing in bilateral lung soler on admission. Most likely secondary to acute exacerbation of COPD/Emphysema. Patient with no evidence of PNA, CHF, PTX. Was initially on Vapotherm - 30% FiO2, 25 lpm. - Continue DuoNeb standing and PRN, Solumedrol, & Azithromycin - Smoking cessation encouraged - Down to 5L NC the morning of 10/19, but needed high flow again in the afternoon. - On 10/19, had to go to ICU for increased work of breathing. Trialed high flow & BiPap, but did not tolerate. Intubated overnight. - Mechanical ventillation per pulm/CC - Extubated on 10/21. Plan to move from ICU when ready per pulm/cc. (2) COPD exacerbation: As above. Chronic respiratory failure with hypoxia. - Nebs, steroids, Azithromycin (3) Hyponatremia: Patient with hyponatremia in the past. 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 She was on salt tablets in the past but has not been taking them lately. No neurological symptoms or seizures with her Na level of 126. - Salt tablets 1gm po BID - On 10/19, Na was up to 129, then down to 123. Up to 137 on 10/22 -> Salt tablets and fluid restriction as able. (4) HTN (hypertension): Blood pressure elevated at present in setting of acute respiratory distress. - Continue lisinopril daily - Continue metoprolol - Hydralazine PRN (5) Anxiety: Chronic. - Continue Ativan PRN - Patient may need additional dosing if she becomes acutely anxious (6) CAD (coronary artery disease): Patient with no CP, EKG with no evidence of ischemia, & troponin negative. - Continue ASA 81mg po daily - Continue metoprolol - Continue lisinopril (7) Low weight: Underweight/thin, BMI 16.7 kg/m*m (8) DVT prophylaxis: Heparin 5000 units Q8h GI - Lansoprazole while intubated Subjective Still shortness of breath. However, improving. Now extubated. Review of Systems Review of Systems: All systems reviewed & are unremarkable except as noted in HPI & below Physical Exam Constitutional: WD/WN, vitals as above Eyes: EOM intact bilaterally; no conjunctival abnormality ENMT: external ear and nose normal, oropharynx normal Neck: trachea midline, no thyromegaly normal visual inspection Respiratory: normal respiratory effort, lungs clear to auscultation + labored breathing and + prolonged expiratory phase Auscultation: + diminished lung sounds and + rhonchi; no wheezes Cardiovascular: RRR, no murmur, no edema Gastrointestinal (Abdomen): Inspection/Auscultation: abdomen normal to inspection; abdomen not distended Musculoskeletal: no cyanosis or clubbing, extremities motor strength 5/5 Skin: no rashes, warm and dry Neurologic: moves all extremities and awake Psychiatric: Orientation: alert, oriented to person and cooperative Affect: + flat affect Results & Data Vital Signs (Past 12 Hours) Vital Signs Pulse Pulse Resp BP Pulse Ox 10/22/18 10:18 101 H 20 96 10/22/18 07:21 101 H 16 94 10/22/18 06:00 97 H 97 H 20 183/86 H 92 10/22/18 05:00 88 88 20 163/83 H 92 10/22/18 04:01 88 20 93 10/22/18 04:00 86 86 22 167/89 H 100 10/22/18 03:00 78 78 20 157/83 H 94 10/22/18 02:00 90 90 22 158/90 H 96 10/22/18 01:00 86 86 20 157/77 H 95 (1) HTN (hypertension) Hypertension type: essential hypertension Qualified Code(s): I10 - Essential (primary) hypertension (2) CAD (coronary artery disease) Coronary Disease-Associated Artery/Lesion type: [place] artery [place] vs. transplanted heart: [place] heart Associated angina: without angina Qualified Code(s): I25.10 - Atherosclerotic heart disease of [place] coronary artery without angina pectoris
[2018-10-22] MEDS ORDERED: METOPROLOL SUCC 50MG EXT REL TAB PO ONE (16:00)
[2018-10-22] MEDS: HydrALAZINE HCL 20 MG/ML VIAL IV PRN (23:38)
[2018-10-23] MEDS: LORazepam 0.5 MG TAB PO PRN ×3 (00:17→16:54)
[2018-10-23] MEDS: ALBUTEROL 0.083% NEBU SOLN 3 ML VIAL NEB PRN ×2 (00:23→11:20)
[2018-10-23] MEDS: ALBUTEROL HFA 8 GM INHALER INH SCH ×6 (04:03→23:03)
[2018-10-23] MEDS: HydrALAZINE HCL 20 MG/ML VIAL IV PRN ×2 (06:08→23:04)
[2018-10-23 08:16] LABS: Basophils # (auto) 0.02 K/uL (0-0.2); Basophils % (auto) 0.2 %; Eosinophils # (auto) 0.03 K/uL (0-0.5); Eosinophils % (auto) 0.3 %; Hematocrit (blood only) 37.5 % (37-47); Immature Granulocytes # (auto) 0.18 K/uL (0.00-0.02); Immature Granulocytes % (auto) 1.7 %; Lymphocytes # (auto) 1.11 K/uL (1.2-3.4); Lymphocytes % (auto) 10.7 %; Mean Corpuscular Volume 75.8 fL (80-100); Mean Platelet Volume 9.1 fL (7.4-10.4); Monocytes # (auto) 1.25 K/uL (0.11-0.59); Monocytes % (auto) 12.1 %; Neutrophils # (auto) 7.78 K/uL (1.4-6.5); Platelet Count 244 K/uL (130-400); RDW Coefficient of Variation 17.9 % (11.5-14.5); RDW Standard Deviation 49.4 fL (36.4-46.3); Red Blood Count 4.95 M/uL (4.2-5.4); White Blood Count 10.37 K/uL (4.8-10.8)
[2018-10-23] MEDS: DOCUSATE SODIUM SYRUP 100 MG/10 ML UDC NG SCH (08:16)
[2018-10-23] MEDS: BUDESONIDE/FORMOTEROL FUMARATE 160/4.5 60 PUFFS/INHALER INH SCH ×2 (08:16→20:14)
[2018-10-23 08:50] LABS: Magnesium 1.7 mg/dl (1.8-2.4); Phosphorus 1.9 mg/dl (2.5-4.9)
[2018-10-23] MEDS: SODIUM CHLORIDE 1 GM TABLET PO SCH ×2 (09:29→20:15)
[2018-10-23] MEDS: METOPROLOL SUCC 50MG EXT REL TAB PO SCH (09:30)
[2018-10-23] MEDS: LISINOPRIL 20 MG TAB PO SCH (09:30)
[2018-10-23] MEDS: predniSONE 10 MG TABLET PO SCH (09:31)
[2018-10-23] MEDS: NICOTINE 21 MG/24 HR TDSY TD SCH (09:31)
[2018-10-23] MEDS: HEPARIN SOD 5,000 UNIT/0.5 ML VIAL SQ SCH ×2 (09:33→20:17)
[2018-10-23] MEDS: ASPIRIN 81 MG CHEW NG SCH (09:33)
[2018-10-23] MEDS: AZITHROMYCIN 250 MG in DEXTROSE 5% 250 ML IV SCH (09:54)
[2018-10-23] MEDS: ROFLUMILAST 500 MCG TAB PO SCH (10:01)
[2018-10-23] MEDS: LANSOPRAZOLE 30 MG SOLTAB NG SCH (10:01)
--- NOTE | 2018-10-23 15:30 | XRay Report ---
SINGLE VIEW CHEST CLINICAL HISTORY: Dyspnea. FINDINGS: An AP, portable, upright chest radiograph is compared to study dated 10/22/2018 and correlate d with chest CT dated 03/15/2018. The examination is degraded by portable technique and patient rotat ion. A right PICC line is unchanged in position. The heart is enlarged and there is atherosclerotic c alcification of the thoracic aorta. The pulmonary vasculature is noncongested. Enlargement of the rashaun tral pulmonary arteries suggests pulmonary artery hypertension. Advanced emphysema and chronic inters titial thickening are similar to previous. There is bibasilar scarring/atelectasis. No airspace conso lidation or large pleural effusion is identified. No pneumothorax is seen. The skeletal structures ar e osteopenic. The bony thorax is grossly intact. IMPRESSION: Cardiomegaly and emphysema with no acute cardiopulmonary abnormality. Electronically signed by: Zackery Wade M.D. 10/23/2018 3:28 PM
--- NOTE | 2018-10-23 16:33 | Hospitalist Progress Note ---
Date of Service October 23, 2018 Assessment & Plan (1) Respiratory distress: Patient with tachypnea, increased work of breathing. Diffuse wheezing in bilateral lung soler on admission. Most likely secondary to acute exacerbation of COPD/Emphysema. Patient with no evidence of PNA, CHF, PTX. Was initially on Vapotherm - 30% FiO2, 25 lpm. - Continue DuoNeb standing and PRN, Solumedrol, & Azithromycin - Smoking cessation encouraged - Down to 5L NC the morning of 10/19, but needed high flow again in the afternoon. - On 10/19, had to go to ICU for increased work of breathing. Trialed high flow & BiPap, but did not tolerate. Intubated overnight. - Extubated on 10/21. Moved from ICU on 10/22 to floor. - On 10/23, she is close to baseline, but still has shortness of breath. Highly anxious and often needs Ativan to improve her shortness of breath. Will continue prednisone at 50mg with long taper. Stopped abx on 10/22 as she never had pneumonia. I think she could be discharged to rehab in 1-2 days. (2) COPD exacerbation: As above. Chronic respiratory failure with hypoxia. - Nebs, steroids, Azithromycin (3) Hyponatremia: Patient with hyponatremia in the past. 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 She was on salt tablets in the past but has not been taking them lately. No neurological symptoms or seizures with her Na level of 126. - Salt tablets 1gm po BID - On 10/19, Na was up to 129, then down to 123. Up to 137 on 10/22 -> Salt tablets and fluid restriction as able. (4) HTN (hypertension): Blood pressure elevated at present in setting of acute respiratory distress. - Continue lisinopril daily - Continue metoprolol - Hydralazine PRN (5) Anxiety: Chronic. - Continue Ativan PRN - Patient may need additional dosing if she becomes acutely anxious (6) CAD (coronary artery disease): Patient with no CP, EKG with no evidence of ischemia, & troponin negative. - Continue ASA 81mg po daily - Continue metoprolol - Continue lisinopril (7) Low weight: Underweight/thin, BMI 16.7 kg/m*m (8) DVT prophylaxis: Heparin 5000 units Q8h Subjective Still shortness of breath today, but improving. Not at baseline, but not too far off. Review of Systems Review of Systems: All systems reviewed & are unremarkable except as noted in HPI & below Physical Exam Constitutional: WD/WN, vitals as above Eyes: EOM intact bilaterally; no conjunctival abnormality ENMT: external ear and nose normal, oropharynx normal Neck: trachea midline, no thyromegaly normal visual inspection Respiratory: normal respiratory effort, lungs clear to auscultation + labored breathing and + prolonged expiratory phase Auscultation: + diminished lung sounds and + rhonchi; no wheezes Cardiovascular: RRR, no murmur, no edema Gastrointestinal (Abdomen): Inspection/Auscultation: abdomen normal to inspection; abdomen not distended Musculoskeletal: no cyanosis or clubbing, extremities motor strength 5/5 Skin: no rashes, warm and dry Neurologic: moves all extremities and awake Psychiatric: Orientation: alert, oriented to person and cooperative Affect: + flat affect Results & Data Vital Signs (Past 12 Hours) Vital Signs Temp Pulse Pulse Resp BP Pulse Ox 10/23/18 15:30 37.2 C 83 18 163/88 H 96 10/23/18 11:20 81 16 91 10/23/18 07:08 36.5 C 88 18 179/84 H 90 10/23/18 06:04 93 H 195/99 H (1) CAD (coronary artery disease) Associated angina: without angina Coronary Disease-Associated Artery/Lesion type: [place] artery [place] vs. transplanted heart: [place] heart Qualified Code(s): I25.10 - Atherosclerotic heart disease of [place] coronary artery without angina pectoris (2) HTN (hypertension) Hypertension type: essential hypertension Qualified Code(s): I10 - Essential (primary) hypertension
[2018-10-24] MEDS: ALBUTEROL HFA 8 GM INHALER INH SCH ×4 (04:19→15:59)
[2018-10-24 06:23] LABS: Eosinophils # (auto) 0.04 K/uL (0-0.5); Eosinophils % (auto) 0.5 %; Hematocrit (blood only) 35.9 % (37-47); Hemoglobin 11.5 g/dL (12.0-16.0); Immature Granulocytes # (auto) 0.09 K/uL (0.00-0.02); Immature Granulocytes % (auto) 1.1 %; Lymphocytes # (auto) 1.48 K/uL (1.2-3.4); Lymphocytes % (auto) 17.4 %; Mean Corpuscular Volume 75.4 fL (80-100); Mean Platelet Volume 9.6 fL (7.4-10.4); Monocytes # (auto) 0.77 K/uL (0.11-0.59); Neutrophils # (auto) 6.14 K/uL (1.4-6.5); Platelet Count 261 K/uL (130-400); RDW Coefficient of Variation 17.9 % (11.5-14.5); RDW Standard Deviation 49.9 fL (36.4-46.3); Red Blood Count 4.76 M/uL (4.2-5.4); White Blood Count 8.52 K/uL (4.8-10.8)
[2018-10-24 07:01] LABS: BUN Creatinine Ratio 32.1 (10-20); Calcium 9.1 mg/dl (8.5-10.1); Creatinine Clr Calc Pharmacy 86.5 ml/min; Est GFR (African American) 123.8; Est GFR (Non-African American) 106.8; Magnesium 1.7 mg/dl (1.8-2.4); Phosphorus 3.5 mg/dl (2.5-4.9); Potassium 3.2 mmol/L (3.5-5.1)
[2018-10-24] MEDS: HEPARIN SOD 5,000 UNIT/0.5 ML VIAL SQ SCH (07:40)
[2018-10-24] MEDS: BUDESONIDE/FORMOTEROL FUMARATE 160/4.5 60 PUFFS/INHALER INH SCH (07:40)
[2018-10-24] MEDS: predniSONE 10 MG TABLET PO SCH (07:41)
[2018-10-24] MEDS: METOPROLOL SUCC 50MG EXT REL TAB PO SCH (07:41)
[2018-10-24] MEDS: LANSOPRAZOLE 30 MG SOLTAB NG SCH (07:41)
[2018-10-24] MEDS: ASPIRIN 81 MG CHEW NG SCH (07:42)
[2018-10-24] MEDS: DOCUSATE SODIUM SYRUP 100 MG/10 ML UDC NG SCH (07:42)
[2018-10-24] MEDS: NICOTINE 21 MG/24 HR TDSY TD SCH (07:42)
[2018-10-24] MEDS: LISINOPRIL 20 MG TAB PO SCH (07:42)
[2018-10-24] MEDS: SODIUM CHLORIDE 1 GM TABLET PO SCH (07:43)
[2018-10-24] MEDS: ROFLUMILAST 500 MCG TAB PO SCH (07:44)
[2018-10-24] MEDS ORDERED: POTASSIUM CHLORIDE 10 MEQ TABCR PO STA (09:42)
[2018-10-24] MEDS ORDERED: MAGNESIUM SULFATE / D5W 1 GM/100 ML BAG IV ONE (10:00)
--- NOTE | 2018-10-31 21:31 | Discharge Summary ---
Date of Service date of admission - 10/18/18 date of discharge - 10/24/18 Admission HPI Per Admitting Provider Pricila Davis is a 68yo female with oxygen dependent COPD (4L NC at home), HTN, Hyponatremia, active smoker and CAD presenting with respiratory distress. Patient states that she became more short of breath approximately one week ago associated with dry cough and occasional chest tightness. Patient was seen in the ER on 10/16/18 and recommended admission to the hospital for management of SOB/COPD. Patient refused hospital admission at that time. She was treated with DuoNeb, Azithromycin, Magnesium and Solumedrol and discharged home with a steroid taper and Azithromycin. She reports progressive symptoms. Needed to increase her O2 to 5L at home last night. She denies fevers/chills/sweats/weight gain/orthopnea/palpitations/chest pain or allergy symptoms Upon arrival to the ER she was tachypneic in mild respiratory distress. She was administered Albuterol neb, Solumedrol and Ceftriaxone. She refused BiPAP as she has been unable to tolerate the mask in the past. She was placed on high flow nasal cannula with improvement in symptoms, however asked to be taken off that as well due to inability to tolerate. ER Course: Albuterol 12mL, Ceftriaxone 1gm, Solumedrol 80mg, NSS x 500mL Principal Diagnosis acute/chronic hypoxic & hypercarbic respiratory failure Discharge Exam Constitutional + thin; no acute distress ENMT external ear and nose normal, oropharynx normal Respiratory Auscultation: + diminished lung sounds and + wheezes (minimal); no crackles Cardiovascular Rate/Rhythm: regular rate and regular rhythm Heart Sounds: normal S1 and normal S2; no murmur Vessels: posterior tibial pulses present and dorsalis pedis pulses present; no JVD Gastrointestinal (Abdomen) normal bowel sounds, soft, nontender, no hepatosplenomegaly Psychiatric A+Ox3, euthymic affect Discharge Data Allergies Allergy/AdvReac Type Severity Reaction Status Date / Time levofloxacin [From Levaquin] AdvReac Severe "goes Unverified 10/18/18 12:19 crazy" Consultations 1. pulmonary/critical care Procedures Performed 1. numerous chest x-rays 1. intubation/mechanical ventilation Hospital Course (1) Acute on chronic respiratory failure with hypoxia and hypercapnia: Patient admitted for severe COPD exacerbation. Imaging never showed evidence of pneumonia. Early on she was back and forth between her home NC O2 and high-flow NC. On 10/19/2018 she had worsening respiratory distress despite high-dose IV steroids, antibiotics, and nebs. She was transferred to the ICU and placed on BIPAP. Despite such she continued to worsen and ultimately required intubation and mechanical ventilation. She was intubated later in the day on 10/19/18. She remained on the vent for about 36 hours and was successfully extubated on 10/21/18. She was then moved from the ICU back to the floor on 10/22/18. For the remainder of her stay she received standard COPD care including steroids, antibiotics, oxygen, nebs, and pulmonary toilet. Daliresp was added for additional COPD treatment. She improved with her pulmonary symptoms and on day of discharge she felt she was at baseline. O2 sats with walking on day of discharge were >88% with her 4 liters of NC O2 in place. She will complete a slow prednisone taper post-discharge. She completed her entire antibiotic course while here. Patient reported having a paraffin plant sweater operator in the [place] area and she was advised to follow-up with that provider within 1 week of discharge. (2) COPD exacerbation: As above (3) Hyponatremia: Patient with hyponatremia in the past. 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 She was on salt tablets in the past but had not been taking them regularly at home. No neurological symptoms or seizures despite her hyponatremia. Lowest Na level was 123. Na level on day of discharge was 138. Na improved with salt tablets. Advised 1gm of salt tablet daily along with 1500cc of fluid restriction. (4) HTN (hypertension): Blood pressures were labile throughout the stay. She will continue her lisionpril and metoprolol as previous. (5) Anxiety: Chronic. Continue Ativan PRN. (6) CAD (coronary artery disease): NO evidence of ACS while here. No ischemic symptoms. She remains on aspirin, beta josh, MALI. (7) Low weight: Underweight/thin with BMI 17.9. On day of discharge the patient was adamant about returning home. She had not received PT/OT while here but was observed by staff walking the hallways without any assistance. She was agreeable to home PT/OT, however. Total Time Total Time Spent Total Time Spent (In Minutes): 40 Total Time Includes: Examination of the Patient, Discharge Planning and Medication Reconciliation Discharge Plan Discharge Items Patient Disposition: Home - Home Health Services Reason For Visit: RESPIRATORY DISTRESS Discharge Diagnosis: severe COPD exacerbation Discharge Goals: Diagnostic testing and Therapeutic intervention Activity: As commented below Activity Comment: gradually increase as tolerated Exercise/Sports: Gradually increase as tolerated Non-emergency contact: Primary Care Provider and Property Disposal Manager Call non-emergency contact if: you have any medication questions, your symptoms worsen and your temperature is above 100.5 Follow-up/Referrals: Tika King PA-C [Physician Pulping Machine Operator] - (see [facility] -- or any of her associates -- for your COPD. ideally you establish care with a lung specialist in the next 2-3 weeks.) Malinda Escobedo [Primary Care Provider] - 10/26/18 1:30 pm (You have a follow up appointment with Rick Kimball PA-C on October 26 at 1:30pm.) Diet: Heart Healthy Fluids: 1500ml (6 cups) Addtl Provider Instructions: From Petros Melara - Hospitalist -- You were treated for a severe COPD exacerbation with IV/oral steroids, nebulizer treatments, antibiotics, and you briefly needed to be on the ventilator in the ICU. Fortunately you slowly improved over time and you are at or near your typical/baseline breathing. You are oxygenating well on your usual 4 liters of nasal cannula oxygen. At this time we recommend -- 1. prednisone taper x 11 days; start this TOMORROW on 10/25/18. Take with food. While on the prednisone please stop your meloxicam (mobic) to avoid stomach upset. 2. for the next 5 days or so please schedule your albuterol neb treatments 4 times a day. 3. take hptg-bex-zlmztno mucinex 1200mg twice a day for another week or so. 4. avoid smoke, hot weather, humid conditions, etc. 5. START daliresp 250mcg - 1 tablet daily - for your COPD. Start this TOMORROW on 10/25/18. 6. Resume your salt tablet (sodium chloride). Take 1 gm (1000mg) once a day. Prescription given. 7. use a rolling walker at your home. This is the safest way to get around your home. Prescription given. 8. You completed your course of antibiotics in the hospital. 9. Home PT/OT will be set up for you to work on your strength and conditioning. 10. Restrict your total fluid intake to about 1500cc/day at home due to recent sodium issues. Follow-up -- * see your family doctor's office THIS WEEK as scheduled * if you do not have a lung specialist (paraffin plant sweater operator) please establish with one at [facility] -- I have provided a name of a provider (but you can see any of the providers) and the office address/phone number; see them in 2-3 weeks at the latest Return to [facility] if -- * you have fevers over 100.5 degrees * you are having worsening shortness of breath, chest pain/tightness, etc * you have to increase your oxygen on your oxygen tank to get more air and relief of your symptoms * any other concerns Final recommendation -- please have your family doctor check a "BMP" (basic metabolic panel), CBC (blood count) and IRON studies at the time of your hospital follow-up. Prescriptions: New sodium chloride 1 gram Tablet 1 g PO DAILY Qty: 30 RF: 1 Daliresp 500 mcg Tablet 250 mcg PO DAILY Qty: 30 RF: 2 prednisone 10 mg tablet 10 mg PO DIRECTED Qty: 26 RF: 0 Oxygen Home Liters Per Minute .ROUTE .MEDSUPPLY Qty: 1 RF: 0 walker misc .ROUTE .MEDSUPPLY Qty: 1 RF: 0 potassium chloride 20 mEq tablet extended release 20 meq PO DAILY 3 Days Qty: 3 RF: 0 Continued acetaminophen [Tylenol Extra Strength] 500 mg Tablet 500 mg PO Q6H PRN (Reason: Pain) RF: 0 ipratropium-albuterol 0.5 mg-3 mg(2.5 mg base)/3 mL solution for nebulization 3 ml Inhalation QID PRN (Reason: Shortness Of Breath Or Wheezing) RF: 0 lisinopril 20 mg tablet 20 mg PO QAM RF: 0 alendronate 70 mg tablet 70 mg PO WK RF: 0 lorazepam 0.5 mg tablet 0.5 mg PO TID PRN (Reason: Anxiety) RF: 0 pantoprazole 40 mg tablet,delayed release (DR/EC) 40 mg PO QAM RF: 0 fluticasone propion-salmeterol 500-50 mcg/dose blister with device 1 puff Inhalation Q12H RF: 0 ipratropium-albuterol 20-100 mcg/actuation mist 1 puff Inhalation Q6H RF: 0 metoprolol succinate 100 mg tablet extended release 24 hr 100 mg PO QAM RF: 0 aspirin 81 mg Tablet,Delayed Release (Dr/Ec) 81 mg PO QAM RF: 0 docusate sodium [Stool Softener] 100 mg Capsule 100 mg PO QAM RF: 0 Discontinued meloxicam 15 mg tablet 15 mg PO QAM RF: 0 Stand-Alone Forms: [facility]/Other Patient Handouts: COPD Discharge Orders: Discharge Order (Routine); Ordered 10/24/18 Ordered By: Petros Melara Admission Data Admit Date/Time: 10/18/18 13:38 Attending Provider: Petros Melara Admit Provider: Aline Garcia Primary Care Provider: Malinda Escobedo Other Providers: Isidoro Bai ; Aline Garica ; Rosalva Sena Service: Medical Other Interventions: Discharge Summary Assessment (RN) Last Done: 10/24/18 18:02 Pending Studies at Discharge: No DC Date/Time DO NOT enter until pt leaves facility: 10/24/18 18:37
== END 2018-10-24 18:37 | disposition home health service (06) | DRG 208 ==
LOC: ED 10:49 → SUATTDRO 13:38 → 2S 13:38 → 1E 10-19 15:46 → 4W 10-22 16:59

== ENCOUNTER 2019-01-26 01:53 | Inpatient (IN) ==
[2019-01-26] MEDS ORDERED: ALBUT/IPRATROP 3MG/0.5MG NEB 3 ML VIAL INH STA (01:55)
[2019-01-26] MEDS ORDERED: methylPREDNISolone 125 MG/2 ML VIAL IV STA (01:58)
[2019-01-26 02:20] LABS: Partial Thromboplastin Ratio 0.9; Partial Thromboplastin Time 23.4 Seconds (21.0-31.0); Prothrombin Time 10.3 Seconds (9.0-12.0)
[2019-01-26 02:27] LABS: Alanine Aminotransferase 38 U/L (12-78); Albumin Level 2.9 gm/dl (3.4-5.0); Aspartate Aminotransferase 27 U/L (15-37); BUN Creatinine Ratio 24.3 (10-20); Blood Urea Nitrogen 13 mg/dl (7-18); Carbon Dioxide 38 mmol/L (21-32); Chloride 95 mmol/L (98-107); Est GFR (African American) 113.3; Est GFR (Non-African American) 97.7; Glucose 159 mg/dl (70-99); Potassium 3.9 mmol/L (3.5-5.1); Sodium 137 mmol/L (136-145)
[2019-01-26 02:31] LABS: iSTAT Arterial Blood Gas HCO3 39 meg/L (19-24); iSTAT Arterial Blood Gas pCO2 78 mmHg (35-46); iSTAT Arterial Blood Gas pH 7.31 (7.35-7.45); iSTAT Carbon Dioxide > 40 mEq/l (24-31); iSTAT Hematocrit 24 % (37-47); iSTAT Hemoglobin 8.2 g/dl (12.0-16.0); iSTAT Sodium 135 mEq/L (135-144)
[2019-01-26 02:32] LABS: Albumin Globulin Ratio 0.7 (0.9-2); Alkaline Phosphatase 60 U/L (45-117); Bilirubin,Total 0.2 mg/dl (0.2-1); Globulin 4.2 gm/dl (2.5-4.0); NT Pro B Type Natriuretic Pept 3410 pg/ml (0-900); Total Protein 7.1 gm/dl (6.4-8.2); Troponin I < 0.015 ng/ml (0-0.045)
--- NOTE | 2019-01-26 02:32 | Emergency Department Note ---
History of Present Illness General Chief complaint: Shortness of Breath/Dyspnea Stated complaint: SHORTNESS OF BREATH History of Present Illness This 68-year-old presents to the ER complaining of dyspnea Location: Chest Quality: Hard to breathe Severity: Severe Duration: Today Timing: Patient's been having increasing shortness of breath for the past few days Context: Symptoms got worse and patient summoned EMS Modifying factors: better with albuterol; worse with activity Patient has COPD. She continues to smoke. She wears 4 L at home. Sats on 4 L per EMS were in the 80s. Patient finished her steroids and her Zithromax from last visit. Patient denies chest pain, abdominal pain, fevers, productive cough. No history of heart failure. Home Medications Home Medications Medication Instructions Recorded Confirmed Type alendronate 70 mg PO WK 03/12/18 01/26/19 History aspirin 81 mg PO QAM 03/12/18 01/26/19 History docusate sodium [Stool Softener] 100 mg PO QAM 03/12/18 01/26/19 History ipratropium-albuterol 3 ml INHALATION QID PRN 03/12/18 01/26/19 History lisinopril 20 mg PO QAM 03/12/18 01/26/19 History lorazepam 0.5 mg PO TID PRN 03/12/18 01/26/19 History metoprolol succinate 100 mg PO QAM 03/12/18 01/26/19 History pantoprazole 40 mg PO QAM 03/12/18 01/26/19 History acetaminophen [Tylenol Extra 1,000 mg PO Q6H PRN 08/16/18 01/26/19 History Strength] roflumilast [Daliresp] 250 mcg PO DAILY #30 tab 10/24/18 01/26/19 Rx Saccharomyces boulardii [Florastor] 250 mg PO BID #20 cap 01/17/19 01/26/19 Rx albuterol sulfate [Ventolin HFA] 2 puff INHALATION QID PRN 01/17/19 01/26/19 History atorvastatin 40 mg PO DAILY 01/17/19 01/26/19 History escitalopram oxalate 5 mg PO DAILY 01/17/19 01/26/19 History fluticasone propion-salmeterol 1 inh INHALATION Q12H 01/17/19 01/26/19 History [Wixela Inhub] ipratropium-albuterol [Combivent 1 puff INHALATION Q4H 01/17/19 01/26/19 History Respimat] meloxicam 15 mg PO DAILY 01/17/19 01/26/19 History umeclidinium [Incruse Ellipta] 1 inh INHALATION DAILY 01/17/19 01/26/19 History Allergies Allergy/AdvReac Type Severity Reaction Status Date / Time levofloxacin [From Levaquin] AdvReac Severe "goes Verified 01/26/19 02:44 crazy" Past Med/Surg History Medical History HTN (hypertension) (Chronic) Tobacco abuse (Chronic) Emphysema of lung (Chronic) Hypoxia (Acute) Asthma (Chronic) COPD (chronic obstructive pulmonary disease) (Chronic) 4L O2 at home Heart attack (Resolved) November 2017 COPD with acute exacerbation (Inactive) Anxiety H/O: hysterectomy Hyponatremia Surgical History History of ankle surgery Family History Other COPD (chronic obstructive pulmonary disease) Cancer Social History Preferred Language: Portuguese Communication Ability: Effective Visual Impairment: No Limitations Hearing Ability: Normal Director Of Hotel Required: Yes Beliefs That Will Affect Care: None marital status: Current Living Situation: Spouse Feels Safe at Home: Yes Smoking Status: Current every day smoker Tobacco Type: cigarettes ; Cigarettes Per Day: 12 ; Second Hand Exposure: Yes ; Hx Alcohol Use: Yes Alcohol type: beer Hx Substance Use: No Review of Systems All systems reviewed & are unremarkable except as noted in HPI & below Physical Exam Vital Signs Vital Signs - 24 hr 01/26/19 02:04 01/26/19 02:09 01/26/19 02:10 Temperature 36.8 C Temperature Source Oral Sepsis Action Taken by Nursing No Action Required Pulse Rate 82 Pulse Rate [Apical] 85 Pulse Rate from SpO2 Sensor Respiratory Rate 24 26 H Respiratory Effort / Characteristics Accessory Muscle Use Spontaneous Respiratory Depth Respiratory Pattern Blood Pressure 177/94 H Blood Pressure Mean 121 Pulse Oximetry 100 100 95 Oxygen Delivery Method Room Air Room Air BiPAP Fraction of Inspired Oxygen 30 01/26/19 02:13 01/26/19 02:15 01/26/19 02:20 Temperature Temperature Source Sepsis Action Taken by Nursing Pulse Rate 82 84 81 Pulse Rate [Apical] Pulse Rate from SpO2 Sensor 83 Respiratory Rate 28 H 26 H 25 H Respiratory Effort / Characteristics Respiratory Depth Respiratory Pattern Blood Pressure 192/93 H 187/110 H 182/91 H Blood Pressure Mean 126 135 121 Pulse Oximetry 99 Oxygen Delivery Method BiPAP BiPAP Fraction of Inspired Oxygen 30 01/26/19 02:25 01/26/19 02:30 01/26/19 03:40 Temperature Temperature Source Sepsis Action Taken by Nursing Pulse Rate 82 78 Pulse Rate [Apical] Pulse Rate from SpO2 Sensor 81 83 78 Respiratory Rate 30 H 24 26 H Respiratory Effort / Characteristics Spontaneous SOB on Exertion Respiratory Depth Normal Respiratory Pattern Regular Blood Pressure 196/94 H 174/103 H 182/86 H Blood Pressure Mean 128 126 118 Pulse Oximetry 97 90 100 Oxygen Delivery Method BiPAP BiPAP BiPAP Fraction of Inspired Oxygen 30 VITALS: Vitals are noted on the nurse's note and reviewed by myself. Vital signs reviewed. GENERAL: Elderly female working to breathe in acute distress. SKIN: The skin was without rashes, erythema, edema, or bruising. There is no tenting of the skin. Capillary reflex less than 2 seconds. HEAD: Normocephalic atraumatic. EARS: External auditory canals clear, tympanic membranes pearly jade without erythema or effusion bilaterally. EYES: Pupils equal round and reactive to light and accommodation. Conjunctivae without injection, sclerae without icterus. Extraocular movements intact. NOSE: Patent, turbinates without inflammation or discharge. No sinus tenderness. MOUTH: Mucous membranes mildly dry. Pharynx without erythema or exudate. Uvula midline. Airway patent. Tongue does not deviate. NECK: Supple without nuchal rigidity. No lymphadenopathy. No thyromegaly. Cervical spine is nontender. No JVD. HEART: Regular rate and rhythm LUNGS: Diffuse inspiratory and end expiratory wheezes, bibasilar rales no rhonchi. + retractions + accessory muscle use. ABDOMEN: Positive bowel sounds x 4. Normal tympanic percussion. Soft, nontender, without masses or organomegaly. Doshi sign negative. No guarding or rebound tenderness. No CVA tenderness MUSCULOSKELETAL: No muscle atrophy noted. Right elbow erythematous and edematous concerning for infection. Full range of motion. Radial pulses +2 equal and present bilaterally. NEURO: Patient was alert and oriented to person place and time. Normal sensation to light and sharp touch. No focal neurological deficits. Course Administered Medications Discontinued Medications Albuterol (Duoneb) 3 ml INH NOW STA Stop: 01/26/19 01:56 Last Admin: 01/26/19 02:09 Dose: 3 ml Documented by: [id number] Piperacillin Sod/Tazobactam Sod (Zosyn) 4.5 gm in 120 mls @ 240 mls/hr IV NOW ONE Stop: 01/26/19 03:06 Last Infusion: 01/26/19 03:40 Dose: 0 mls/hr Documented by: [id number] Admin: 01/26/19 03:08 Dose: 240 mls/hr Documented by: [id number] Lorazepam (Ativan) 0.5 mg in 1 mls @ 1 mls/min IV NOW STA Stop: 01/26/19 03:10 Last Admin: 01/26/19 03:14 Dose: 1 mls/min Documented by: [id number] Methylprednisolone (Solumedrol) 125 mg IV NOW STA Stop: 01/26/19 01:59 Last Admin: 01/26/19 02:11 Dose: 125 mg Documented by: [id number] Medical Decision Making Medical Records Attestation: I reviewed the patient's medical records. Home Medications Current Medication List: was personally reviewed by me Laboratory Data Attestation: I reviewed the patient's lab results. Result diagrams: 01/26/19 01:45 01/26/19 01:45 Lab Results 01/26/19 01/26/19 01/26/19 Range/Units 01:45 01:45 01:45 WBC 12.73 H (4.8-10.8) K/uL RBC 3.99 L (4.2-5.4) M/uL Hgb 7.2 L (12.0-16.0) g/dL POC Hgb (12.0-16.0) g/dl Hct 25.7 L (37-47) % POC Hct (37-47) % MCV 64.4 L (80-100) fL MCH 18.0 L (25-34) pg MCHC 28.0 L (32-36) g/dL RDW Std Deviation 49.0 H (36.4-46.3) fL RDW Coeff of Va 21.1 H (11.5-14.5) % Plt Count 279 (130-400) K/uL MPV 9.4 (7.4-10.4) fL Immature Gran % (Auto) 0.3 % Neut % (Auto) 89.0 % Lymph % (Auto) 4.2 % Kane % (Auto) 5.3 % Eos % (Auto) 1.0 % Baso % (Auto) 0.2 % Immature Gran # (Auto) 0.04 H (0.00-0.02) K/uL Neut # (Auto) 11.32 H (1.4-6.5) K/uL Lymph # (Auto) 0.53 L (1.2-3.4) K/uL Kane # (Auto) 0.68 H (0.11-0.59) K/uL Eos # (Auto) 0.13 (0-0.5) K/uL Baso # (Auto) 0.03 (0-0.2) K/uL Polychromasia 1+ Hypochromasia Present Anisocytosis Present Microcytosis Present ESR (0-21) mm/hr PT 10.3 (9.0-12.0) Seconds INR 1.0 (0.9-1.1) APTT 23.4 (21.0-31.0) Seconds PTT Ratio 0.9 POC pH (7.35-7.45) POC pCO2 (35-46) mmHg POC pO2 (80-95) mmHg POC HCO3 (19-24) radhika/L POC Total CO2 (24-31) mEq/l POC Base Excess (-9-1.8) radhika/L POC Sodium (135-144) mEq/L Sodium 137 (136-145) mmol/L POC Potassium (3.3-5.0) mEq/L Potassium 3.9 (3.5-5.1) mmol/L Chloride 95 L (98-107) mmol/L Carbon Dioxide 38 H (21-32) mmol/L Anion Gap 4.0 (3-11) BUN 13 (7-18) mg/dl Creatinine 0.55 L (0.6-1.2) mg/dl Est Cr Clr Drug Dosing 70.0 ml/min Est GFR ( Amer) 113.3 Est GFR (Non-Af Amer) 97.7 BUN/Creatinine Ratio 24.3 H (10-20) Glucose 159 H (70-99) mg/dl Lactate (0.4-2.0) mmol/L Calcium 8.0 L (8.5-10.1) mg/dl Magnesium 2.0 (1.8-2.4) mg/dl Total Bilirubin 0.2 (0.2-1) mg/dl AST 27 (15-37) U/L ALT 38 (12-78) U/L Alkaline Phosphatase 60 (45-117) U/L Troponin I < 0.015 (0-0.045) ng/ml C-Reactive Protein 9.08 H (0-0.29) mg/dl NT-Pro-B Natriuret Pep 3410 H (0-900) pg/ml Total Protein 7.1 (6.4-8.2) gm/dl Albumin 2.9 L (3.4-5.0) gm/dl Globulin 4.2 H (2.5-4.0) gm/dl Albumin/Globulin Ratio 0.7 L (0.9-2) 01/26/19 01/26/19 01/26/19 Range/Units 02:14 03:05 Unknown WBC (4.8-10.8) K/uL RBC (4.2-5.4) M/uL Hgb (12.0-16.0) g/dL POC Hgb 8.2 L (12.0-16.0) g/dl Hct (37-47) % POC Hct 24 L (37-47) % MCV (80-100) fL MCH (25-34) pg MCHC (32-36) g/dL RDW Std Deviation (36.4-46.3) fL RDW Coeff of Va (11.5-14.5) % Plt Count (130-400) K/uL MPV (7.4-10.4) fL Immature Gran % (Auto) % Neut % (Auto) % Lymph % (Auto) % Kane % (Auto) % Eos % (Auto) % Baso % (Auto) % Immature Gran # (Auto) (0.00-0.02) K/uL Neut # (Auto) (1.4-6.5) K/uL Lymph # (Auto) (1.2-3.4) K/uL Kane # (Auto) (0.11-0.59) K/uL Eos # (Auto) (0-0.5) K/uL Baso # (Auto) (0-0.2) K/uL Polychromasia Hypochromasia Anisocytosis Microcytosis ESR 82 H (0-21) mm/hr PT (9.0-12.0) Seconds INR (0.9-1.1) APTT (21.0-31.0) Seconds PTT Ratio POC pH 7.31 L (7.35-7.45) POC pCO2 78 H (35-46) mmHg POC pO2 60 L (80-95) mmHg POC HCO3 39 H (19-24) radhika/L POC Total CO2 > 40 H* (24-31) mEq/l POC Base Excess 13.0 H (-9-1.8) radhika/L POC Sodium 135 (135-144) mEq/L Sodium (136-145) mmol/L POC Potassium 4.0 (3.3-5.0) mEq/L Potassium (3.5-5.1) mmol/L Chloride (98-107) mmol/L Carbon Dioxide (21-32) mmol/L Anion Gap (3-11) BUN (7-18) mg/dl Creatinine (0.6-1.2) mg/dl Est Cr Clr Drug Dosing ml/min Est GFR ( Amer) Est GFR (Non-Af Amer) BUN/Creatinine Ratio (10-20) Glucose (70-99) mg/dl Lactate 1.5 (0.4-2.0) mmol/L Calcium (8.5-10.1) mg/dl Magnesium (1.8-2.4) mg/dl Total Bilirubin (0.2-1) mg/dl AST (15-37) U/L ALT (12-78) U/L Alkaline Phosphatase (45-117) U/L Troponin I (0-0.045) ng/ml C-Reactive Protein (0-0.29) mg/dl NT-Pro-B Natriuret Pep (0-900) pg/ml Total Protein (6.4-8.2) gm/dl Albumin (3.4-5.0) gm/dl Globulin (2.5-4.0) gm/dl Albumin/Globulin Ratio (0.9-2) Imaging Data Attestation: I personally reviewed and interpreted this imaging study as foll ows: Blood Pressure Blood Pressure Findings: Elevated blood pressure Blood Pressure Disposition: Referred to patients primary care provider MDM Narrative Prior records/ancillary studies reviewed. Triage Nursing notes reviewed. Additional history obtained from the family. The patient's history was concerning for respiratory difficulties. Differential diagnosis: Etiologies such as infections, reactive airway disease, pneumonia, pneumothorax, COPD, CHF, cardiac ischemia, pulmonary embolism, musculoskeletal, gastrointestinal, as well as others were entertained. Physical examination: As above. ER treatment provided: BiPAP, DuoNeb, Zosyn, Solu-Medrol On reassessment the patient felt better. Diagnostic interpretation by me: The electrocardiogram was negative for acute ischemic or pathologic change. Normal sinus, normal intervals, no acute ST-T wave changes. Impression normal sinus rhythm interpreted by myself Ordered for dyspnea I think arrhythmia is unlikely. EKG shows normal sinus rhythm with no interval abnormalities such as QT prolongation or WPW. There are no findings to suggest Brugada syndrome. Cardiac monitoring in the emergency department reveals no tachycardic or bradycardic dysrhythmia. Hypertrophic cardiomyopathy was considered but there are no clear historical elements pointing toward this. EKG is not suggestive. The QRS voltage is not extremely large and there are no suggestive Q waves. The labs revealed leukocytosis Blood cultures pending ABG reviewed Imaging studies: Chest x-ray possible developing right lower lobe infiltrate per my interpretation.. Elbow x-ray no acute fracture, dislocation or effusion per my interpretation Consultation: A consultation was placed with Dr. Navarro, hospitalist. The case was di scussed and diagnostics were reviewed. The patient was evaluated in the ER for further treatment. This appears to be consistent with COPD exacerbation with possible pneumonia and elbow infection. Patient started on antibiotics. Medicine was consulted. She was placed on BiPAP. She is agreeable to treatment plan of admission. By the evaluation outlined above emergent etiologies such as cardiac ischemia, pulmonary embolism, pneumonia, pneumothorax, musculoskeletal, as well as others were deemed relatively unlikely. The pt informed about the findings as listed above. All questions were answered and pleased with the treatment. Case reviewed with my attending The chart was completed utilizing Dragon Speech voice recognition software. Grammatical errors, random word insertions, pronoun errors, and incomplete sentences are an occassional consequence of this system due to software limitations, ambient noise, and hardware issues. Any formal questions or concerns about the content, text, or information contained within the body of this dictation should be directly addressed to the physician administrative assistant receptionist for clarification. Impression & Plan COPD exacerbation, Cellulitis of arm, right Discharge Plan Visit Data Chief Complaint: Shortness of Breath/Dyspnea Stated Complaint: SHORTNESS OF BREATH ED Provider: Chrystal Nielsen ED Midlevel Provider: Daisy Modi Discharge Problem: COPD exacerbation, Cellulitis of arm, right Forms Stand Alone Forms: [facility] [employer] Prescriptions Prescriptions: No Action acetaminophen [Tylenol Extra Strength] 500 mg Tablet 1,000 mg PO Q6H PRN (Reason: Pain) RF: 0 ipratropium-albuterol 0.5 mg-3 mg(2.5 mg base)/3 mL solution for nebulization 3 ml Inhalation QID PRN (Reason: Shortness Of Breath Or Wheezing) RF: 0 lisinopril 20 mg tablet 20 mg PO QAM RF: 0 alendronate 70 mg tablet 70 mg PO WK RF: 0 lorazepam 0.5 mg tablet 0.5 mg PO TID PRN (Reason: Anxiety) RF: 0 pantoprazole 40 mg tablet,delayed release (DR/EC) 40 mg PO QAM RF: 0 metoprolol succinate 100 mg tablet extended release 24 hr 100 mg PO QAM RF: 0 aspirin 81 mg Tablet,Delayed Release (Dr/Ec) 81 mg PO QAM RF: 0 docusate sodium [Stool Softener] 100 mg Capsule 100 mg PO QAM RF: 0 Daliresp 500 mcg Tablet 250 mcg PO DAILY Qty: 30 RF: 2 atorvastatin 40 mg tablet 40 mg PO DAILY RF: 0 meloxicam 15 mg tablet 15 mg PO DAILY RF: 0 fluticasone propion-salmeterol [Wixela Inhub] 500-50 mcg/dose blister with device 1 inh inhalation Q12H RF: 0 albuterol sulfate [Ventolin HFA] 90 mcg/actuation HFA aerosol inhaler 2 puff inhalation QID PRN (Reason: Wheezing) RF: 0 escitalopram oxalate 5 mg tablet 5 mg PO DAILY RF: 0 Incruse Ellipta 62.5 mcg/actuation blister with device 1 inh inhalation DAILY RF: 0 Combivent Respimat 20-100 mcg/actuation mist 1 puff inhalation Q4H RF: 0 Florastor 250 mg capsule 250 mg PO BID Qty: 20 RF: 0 Referrals Referrals: Malinda Escobedo [Primary Care Provider] -
[2019-01-26] MEDS ORDERED: PIPERACILL/TAZOBAC CONSULT ACTIVE PRN ×2 (02:37→05:51)
[2019-01-26] MEDS ORDERED: PIPERACILLIN/TAZOBACTAM 4.5 GM/120 ML BAG IV ONE (02:37)
[2019-01-26 02:39] LABS: Hematocrit (blood only) 25.7 % (37-47); Hemoglobin 7.2 g/dL (12.0-16.0); Mean Corpuscular Volume 64.4 fL (80-100); Mean Platelet Volume 9.4 fL (7.4-10.4); Platelet Count 279 K/uL (130-400); RDW Coefficient of Variation 21.1 % (11.5-14.5); Red Blood Count 3.99 M/uL (4.2-5.4); White Blood Count 12.73 K/uL (4.8-10.8)
--- NOTE | 2019-01-26 02:41 | Emergency Department Note ---
ED Visit Note Patient seen and examined at bedside after evaluation by physician assistant counsel. Please refer to her note for additional details. Patient states feeling markedly improved on BiPAP, although on lung exam she still has bilateral expiratory wheezing. Patient's oxygen saturation and increased work of breathing have improved. Discussed with patient additional inpatient evaluation and management. Discussed results of testing so far in the emergency room. She and family verbalized understanding and were in agreement with plan. .
[2019-01-26 02:42] LABS: Anisocytosis Present; Basophils # (auto) 0.03 K/uL (0-0.2); Basophils % (auto) 0.2 %; Eosinophils # (auto) 0.13 K/uL (0-0.5); Hypochromasia Present; Immature Granulocytes # (auto) 0.04 K/uL (0.00-0.02); Immature Granulocytes % (auto) 0.3 %; Lymphocytes # (auto) 0.53 K/uL (1.2-3.4); Lymphocytes % (auto) 4.2 %; Microcytosis Present; Monocytes # (auto) 0.68 K/uL (0.11-0.59); Monocytes % (auto) 5.3 %; Neutrophils # (auto) 11.32 K/uL (1.4-6.5); Polychromasia 1+
[2019-01-26 02:53] LABS: C Reactive Protein 9.08 mg/dl (0-0.29)
[2019-01-26] MEDS ORDERED: LORazepam 0.5 MG/1 ML VIAL IV STA (03:09)
--- NOTE | 2019-01-26 04:27 | History & Physical Report ---
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 Of note patient was in the ED on 01/17/2019 for worsening dyspnea and received prednisone as well as azithromycin. Her hemoglobin was noted to be 8.2 the patient had complained of any melena or blood in her stools at the time. Patient was hospitalized and discharged on 10/31/2018 for dyspnea requiring mechanical intubation for 36 hours. Her hemoglobin was 11.5 on 10/24/2018. COPD exacerbation On 4 L at home Patient continues to smoke Chest x-ray: Mild cardiomegaly [id number] blood gas: pH 7.3, CO2 78, O2 60, HCO3 39 Received Solu-Medrol 125 mg, Zosyn, Ativan, DuoNeb in the ED On BiPAP Started on Solu-Medrol 60 mg q. 8, DuoNeb, pulmonary toilet Continue home Wixela Intub., Incruse Ellipta, ruflumilast inhalers On blood spectrum antibiotics for cellulitis Anemia: Concern for likely upper GI bleed Patient was on meloxicam and aspirin at home Patient has also received prednisone recently Hemoglobin dropped from 11.5 on 10/25/1999 19-8.2 in 01/17/2019 and tonight is 7.2; MCV 64 Elevated ESR and CRP Hemoccult-positive Started on Pepcid 20 mg IV twice daily Continue home pantoprazole 40 mg every morning Trend hemoglobin GI consulted Right elbow cellulitis versus bursitis Extensive right elbow region erythema, warmth, edema and induration WBC 12.7 ESR 82, CRP 9.08 Blood culture x2 pending Lactate 1.5 Started on Vanco Zosyn (previous MRSA swab positive) Hypertension/CAD Continue home metoprolol, lisinopril and atorvastatin Hold home aspirin Anxiety Continue home escitalopram Hold home Ativan as it can worsen respiratory status Constipation Continue home Colace MiraLAX as needed Home pain medication Hold home meloxicam Continue home Tylenol FEN/GI: N.p.o. for possible GI procedure and given for respiratory status, on LR at 80 cc/h DVT prophylaxis: SCDs only, chemical contraindicated in the setting of GI bleed Code: Full based on previous admission CODE STATUS, unable to assess today due to patient mental status and being unaware of CODE STATUS reassess in the morning Disposition: PCU (2) Anemia: (3) Cellulitis of arm, right: (4) CAD (coronary artery disease): (5) Anxiety: (6) Hyponatremia: (7) HTN (hypertension): (8) Tobacco abuse: (9) Emphysema of lung: History of Present Illness Chief Complaint: Worsening dyspnea and right elbow pain Primary Care Provider: Malinda Escobedo 68-year-old female with history of COPD on 4 L O2 at home, emphysema, hypertension, CAD, AR in November 2017, 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 History obtained from ED note review and speaking to patient's as patient had just received Ativan and was sleeping. Her hot weather and humidity triggers her COPD despite the air conditioning running at home. Patient has not been outdoors. Patient has also been complaining of right elbow pain for about a week. She went to her PCP yesterday and was given an antibiotic which she may not have filled. Per patient has not complained of any headache, abdominal pain, diarrhea, vomiting, chest pain. Of note patient was in the ED on 01/17/2019 for worsening dyspnea and received prednisone as well as azithromycin. Her hemoglobin was noted to be 8.2 the patient had complained of any melena or blood in her stools at the time. Patient was hospitalized and discharged on 10/31/2018 for dyspnea requiring mechanical intubation for 36 hours. Her hemoglobin was 11.5 on 10/24/2018. ED: Received BiPAP, DuoNeb, Zosyn, Solu-Medrol and Ativan Allergies Allergy/AdvReac Type Severity Reaction Status Date / Time levofloxacin [From Levaquin] AdvReac Severe "goes Verified 01/26/19 02:44 crazy" Home Medications Home Medications Medication Instructions Recorded Confirmed Type alendronate 70 mg PO WK 03/12/18 01/26/19 History aspirin 81 mg PO QAM 03/12/18 01/26/19 History docusate sodium [Stool Softener] 100 mg PO QAM 03/12/18 01/26/19 History ipratropium-albuterol 3 ml INHALATION QID PRN 03/12/18 01/26/19 History lisinopril 20 mg PO QAM 03/12/18 01/26/19 History lorazepam 0.5 mg PO TID PRN 03/12/18 01/26/19 History metoprolol succinate 100 mg PO QAM 03/12/18 01/26/19 History pantoprazole 40 mg PO QAM 03/12/18 01/26/19 History acetaminophen [Tylenol Extra 1,000 mg PO Q6H PRN 08/16/18 01/26/19 History Strength] roflumilast [Daliresp] 250 mcg PO DAILY #30 tab 10/24/18 01/26/19 Rx Saccharomyces boulardii [Florastor] 250 mg PO BID #20 cap 01/17/19 01/26/19 Rx albuterol sulfate [Ventolin HFA] 2 puff INHALATION QID PRN 01/17/19 01/26/19 History atorvastatin 40 mg PO DAILY 01/17/19 01/26/19 History escitalopram oxalate 5 mg PO DAILY 01/17/19 01/26/19 History fluticasone propion-salmeterol 1 inh INHALATION Q12H 01/17/19 01/26/19 History [Wixela Inhub] ipratropium-albuterol [Combivent 1 puff INHALATION Q4H 01/17/19 01/26/19 History Respimat] meloxicam 15 mg PO DAILY 01/17/19 01/26/19 History umeclidinium [Incruse Ellipta] 1 inh INHALATION DAILY 01/17/19 01/26/19 History Past Med/Surg History Medical History HTN (hypertension) (Chronic) Tobacco abuse (Chronic) Emphysema of lung (Chronic) Hypoxia (Acute) Asthma (Chronic) COPD (chronic obstructive pulmonary disease) (Chronic) 4L O2 at home Heart attack (Resolved) November 2017 COPD with acute exacerbation (Inactive) Anxiety H/O: hysterectomy Hyponatremia Surgical History History of ankle surgery Family History Other COPD (chronic obstructive pulmonary disease) Cancer Social History Preferred Language: [place] Communication Ability: Effective Visual Impairment: No Limitations Hearing Ability: Normal Residential Door Installer Required: No Beliefs That Will Affect Care: None marital status: Current Living Situation: Spouse Other Information That Helps Us Care for You: No Feels Safe at Home: Yes Safety Concerns: Feels Safe At This Time Smoking Status: Current every day smoker Tobacco Type: cigarettes ; Cigarettes Per Day: 10 ; Do You Dip or Chew Tobacco: No ; Second Hand Exposure: No ; Tobacco Cessation Education Requested by Patient: No Hx Alcohol Use: Yes Alcohol type: beer Hx Substance Use: No Review of Systems Review of Systems: As per HPI Physical Exam Physical Exam: General: In NAD Neuro: arousable to verbal stimuli (pt had just received ativan and unable to evaluate further) Pulm: Diffuse rhonchi appreciated, coarse but equal breath sounds bilaterally CV: RRR, no m/r/g Abdomen:+BS, no TTP in all quadrants, non-distended R elbow/arm: extensive erythema, edema/induration, and warmth spreading up and down arm from elbow LE: 1+ bilateral ankle edema, no calf TTP Results & Data Vital Signs (Past 12 Hours) Vital Signs Temp Pulse Pulse Resp BP Pulse Ox 01/26/19 03:40 78 26 H 182/86 H 100 01/26/19 02:30 24 174/103 H 90 01/26/19 02:25 82 30 H 196/94 H 97 01/26/19 02:20 81 25 H 182/91 H 01/26/19 02:15 84 26 H 187/110 H 01/26/19 02:13 82 28 H 192/93 H 99 01/26/19 02:10 85 26 H 95 01/26/19 02:09 100 01/26/19 02:04 36.8 C 82 24 177/94 H 100 Laboratory Results Abnormal lab results 01/26/19 01/26/19 01/26/19 Range/Units 01:45 01:45 02:14 WBC 12.73 H (4.8-10.8) K/uL RBC 3.99 L (4.2-5.4) M/uL Hgb 7.2 L (12.0-16.0) g/dL POC Hgb 8.2 L (12.0-16.0) g/dl Hct 25.7 L (37-47) % POC Hct 24 L (37-47) % MCV 64.4 L (80-100) fL MCH 18.0 L (25-34) pg MCHC 28.0 L (32-36) g/dL RDW Std Deviation 49.0 H (36.4-46.3) fL RDW Coeff of Va 21.1 H (11.5-14.5) % Immature Gran # (Auto) 0.04 H (0.00-0.02) K/uL Neut # (Auto) 11.32 H (1.4-6.5) K/uL Lymph # (Auto) 0.53 L (1.2-3.4) K/uL Stephenson # (Auto) 0.68 H (0.11-0.59) K/uL ESR (0-21) mm/hr POC pH 7.31 L (7.35-7.45) POC pCO2 78 H (35-46) mmHg POC pO2 60 L (80-95) mmHg POC HCO3 39 H (19-24) radhika/L POC Total CO2 > 40 H* (24-31) mEq/l POC Base Excess 13.0 H (-9-1.8) radhika/L Chloride 95 L (98-107) mmol/L Carbon Dioxide 38 H (21-32) mmol/L Creatinine 0.55 L (0.6-1.2) mg/dl BUN/Creatinine Ratio 24.3 H (10-20) Glucose 159 H (70-99) mg/dl Calcium 8.0 L (8.5-10.1) mg/dl C-Reactive Protein 9.08 H (0-0.29) mg/dl NT-Pro-B Natriuret Pep 3410 H (0-900) pg/ml Albumin 2.9 L (3.4-5.0) gm/dl Globulin 4.2 H (2.5-4.0) gm/dl Albumin/Globulin Ratio 0.7 L (0.9-2) 01/26/19 Range/Units Unknown WBC (4.8-10.8) K/uL RBC (4.2-5.4) M/uL Hgb (12.0-16.0) g/dL POC Hgb (12.0-16.0) g/dl Hct (37-47) % POC Hct (37-47) % MCV (80-100) fL MCH (25-34) pg MCHC (32-36) g/dL RDW Std Deviation (36.4-46.3) fL RDW Coeff of Va (11.5-14.5) % Immature Gran # (Auto) (0.00-0.02) K/uL Neut # (Auto) (1.4-6.5) K/uL Lymph # (Auto) (1.2-3.4) K/uL Stephenson # (Auto) (0.11-0.59) K/uL ESR 82 H (0-21) mm/hr POC pH (7.35-7.45) POC pCO2 (35-46) mmHg POC pO2 (80-95) mmHg POC HCO3 (19-24) radhika/L POC Total CO2 (24-31) mEq/l POC Base Excess (-9-1.8) radhika/L Chloride (98-107) mmol/L Carbon Dioxide (21-32) mmol/L Creatinine (0.6-1.2) mg/dl BUN/Creatinine Ratio (10-20) Glucose (70-99) mg/dl Calcium (8.5-10.1) mg/dl C-Reactive Protein (0-0.29) mg/dl NT-Pro-B Natriuret Pep (0-900) pg/ml Albumin (3.4-5.0) gm/dl Globulin (2.5-4.0) gm/dl Albumin/Globulin Ratio (0.9-2) Medications Administered Current Inpatient Medications Miscellaneous Information (Consult) 1 ea N/A UD PRN PRN Reason: Consult Stop: 02/25/19 02:36 Code Status & VTE Plan Code Status Patient was full code last admission, unable to assess at this time and unaware of patient's CODE STATUS VTE Prophylaxis Plan VTE Prophylaxis will be ordered: Yes Supervising Physician Co-Signing Physician Notes Attending addendum: I have physically seen this patient, have supervised the medical residents activities, and agree with the H&P unless as otherwise noted. Assessment and Plan: COPD exacerbation/aggravated by underlying anemia- Continue BiPAP. Solu-Medrol 60 mg IV every 8 hours. Duonebs every 4 hours while awake and every 2 hours when necessary. Guaifenesin extended release 6 mg p.o. twice daily. Sputum Gram stain and culture. Anemia- Hemoglobin 7.2 on admission. Has gradually decreased over the last 4 to 5 months. Hold aspirin and meloxicam. Place on famotidine 20 mg IV every 12 hours Consult gastroenterology. Right elbow cellulitis/bursitis- Continue vancomycin IV and Zosyn IV. Remainder of orders and notations as noted. PG Care Time/CCT Total # of Minutes Spent Total Time Spent with Patient: Total time spent is greater than 50% in coordination of care (as documented) at patient's floor/unit and/or counseling patient: Resident Activity Tracking Resident Involvement: Resident Care Provided Care Provided: Adult Hospital Medicine (1) CAD (coronary artery disease) Associated angina: without angina Coronary Disease-Associated Artery/Lesion type: [place] artery [place] vs. transplanted heart: [place] heart Qualified Code(s): I25.10 - Atherosclerotic heart disease of [place] coronary artery without angina pectoris (2) HTN (hypertension) Hypertension type: essential hypertension Qualified Code(s): I10 - Essential (primary) hypertension
[2019-01-26] MEDS ORDERED: VANCOMYCIN CONSULT ACTIVE PRN (05:51)
[2019-01-26] MEDS ORDERED: LACTATED RINGER'S 1,000 ML IV SCH (05:51)
[2019-01-26] MEDS ORDERED: POLYETHYLENE (MIRALAX) 17 GM PACK PO PRN (05:51)
[2019-01-26] MEDS ORDERED: ACETAMINOPHEN 500 MG TAB PO PRN (05:51)
--- NOTE | 2019-01-26 06:30 | XRay Report ---
XR elbow RT min 3V routine HISTORY: 68 years-old Female pain/infx acute right elbow pain COMPARISON: None available TECHNIQUE: 3 views of the right elbow FINDINGS: Mild degenerative changes of the elbow joint. Small osteophyte about the olecranon process at the tri ceps insertion site. Moderate soft tissue swelling about the distal upper arm, elbow and forearm. The re are a few indeterminate soft tissue calcifications noted about the posterior elbow and also within the mid and distal forearm. No large joint effusion. IMPRESSION: Soft tissue swelling without acute fracture or dislocation. The above report was generated using voice recognition software. It may contain grammatical, syntax o r spelling errors. Electronically signed by: Monico Duarte M.D. 01/26/2019 6:27 AM
--- NOTE | 2019-01-26 06:42 | XRay Report ---
XR chest 1V portable HISTORY: 68 years-old Female sob acute shortness of breath COMPARISON: Chest radiograph 01/17/2019, CTA chest 03/15/2018 TECHNIQUE: Portable AP view of the chest FINDINGS: Cardiac silhouette is enlarged, unchanged. Severe emphysema with chronic fibrotic changes redemonstra dmitri. Mildly progressed interstitial opacities about the right lung with ill-defined minimal subsegmen haylee bibasilar densities. Chronic blunting of the costophrenic angles. No pneumothorax or large pleura l effusion. Degenerative changes of the shoulders and spine. IMPRESSION: 1. Emphysema with chronic fibrotic changes. 2. Progressively worsened interstitial opacities throughout the right lung may reflect developing asy mmetric pulmonary edema or a nonspecific pneumonitis. 3. Minimal bibasilar opacities suggest probable atelectasis. The above report was generated using voice recognition software. It may contain grammatical, syntax o r spelling errors. Electronically signed by: Monico Duarte M.D. 01/26/2019 6:40 AM
[2019-01-26] MEDS ORDERED: VANCOMYCIN HCL 1,000 MG in SODIUM CHLORIDE 0.9% 250 ML IV SCH (07:00)
[2019-01-26] MEDS: ALBUT/IPRATROP 3MG/0.5MG NEB 3 ML VIAL NEB SCH ×5 (07:05→22:21)
[2019-01-26] MEDS ORDERED: PIPERACILLIN/TAZOBACTAM 3.375 GM in DEXTROSE 5% 100 ML IV SCH (08:00)
[2019-01-26] MEDS: DOCUSATE SODIUM 100 MG CAP PO SCH (08:18)
[2019-01-26] MEDS: ROFLUMILAST 500 MCG TAB PO SCH (08:18)
[2019-01-26] MEDS: SACCHAROMYCES BOULARDII 250 MG CAP PO SCH ×2 (08:18→20:40)
[2019-01-26] MEDS: PANTOprazole 40 MG TAB PO SCH (08:19)
[2019-01-26] MEDS: ESCITALOPRAM OXALATE 10 MG TAB PO SCH (08:19)
[2019-01-26] MEDS: METOPROLOL SUCC 50MG EXT REL TAB PO SCH (08:19)
[2019-01-26] MEDS: ATORVASTATIN 40 MG TAB PO SCH (08:19)
[2019-01-26] MEDS: LISINOPRIL 20 MG TAB PO SCH (08:20)
[2019-01-26] MEDS ORDERED: FLUTICASONE/SALMETEROL (ADVAIR) 500/50 INH 14 PUFF INH SCH (09:00)
[2019-01-26] MEDS ORDERED: FAMOTIDINE 20 MG in SYRINGE 3 ML IV SCH (09:00)
[2019-01-26] MEDS ORDERED: SODIUM CHLORIDE 0.9% 250 ML IV PRN (09:41)
[2019-01-26] MEDS: PANTOprazole 40 MG in SYRINGE 0 ML IV SCH ×2 (09:57→21:17)
[2019-01-26] MEDS: methylPREDNISolone 60 MG in SYRINGE 0 ML IV SCH ×2 (10:01→16:53)
[2019-01-26 10:06] LABS: Appearance Urine Clear (Clear); Bacteria Urine Automated Negative (Negative); Bilirubin Urine Negative (Negative); Blood Urine Negative (Negative); Cast Urine Automated 0 /lpf (0-5); Color Urine Yellow; Epithelial Cell Urine Auto >30 /lpf (0-5); Glucose Urine UA Negative (Negative); Ketones Urine Negative (Negative); Leukocyte Esterase Urine Trace (Negative); Nitrite Urine Negative (Negative); Protein Urine Negative (Negative); RBC Urine Automated 0-4 /hpf (0-4); Specific Gravity Urine 1.022 (1.000-1.030); Urobilinogen Urine Negative (Negative)
--- NOTE | 2019-01-26 10:59 | Pharmacy Report ---
Pharmacy Abx Dose Short Note - Date of Service January 26, 2019 - Assessment & Plan Assessment 68 year old F receiving vancomycin/zosyn/azithromycin for treatment of cellulitis and possible pulmonary source. Patient previously MRSA nasal positive in September. Awaiting repeat swab and procalcitonin. Day # 1 of antimicrobial therapy. Plan Vancomycin * Loading dose 1000mg X 1 (given ~0717) * Initiate 750 mg IV every 14 hours tonight @ 2100 * Goal trough level : 15 to 20 mcg/mL * Trough or random level ordered for: 01/28/19 @ 1430 Pharmacy will continue to follow and will adjust dose/frequency as necessary. Thank you.
[2019-01-26] MEDS: AZITHROMYCIN 500 MG in DEXTROSE 5% 250 ML IV SCH (11:40)
--- NOTE | 2019-01-26 12:13 | Gastrointestinal Consultation ---
Date of Consultation January 26, 2019 Assessment & Plan (1) Anemia: Microcytic anemia---consistent with Fe deficiency. Transfuse prn heme pos stool--order formal hemoccult Pt on ASA and Meloxicam so at risk for PUD. Agree with PPI. Discussed with patient doing EGD at some point and she is non committal. Discussed with DR Bai and she would need COPD optimized prior to EGD. Dr Bai thought earliest she would be optimized is Wednesday so will plan for then if patient is agreeable to procedure. History of Present Illness Reason for Consultation: anemia Requesting Physician: Dr Goran Sal Attending Physician: Isidoro Bai MD History of Present Illness CC no abd complaints, is short of breath HPI PT with COPD on baseline 4L O2 presents with 5 day of increased shortness of breath and right elbow pain. Her sats were in the 80s on 4 liters. She had not n oted any bloody nor black stools and denies abd pain. In H and P there is mention of heme pos stool but do not see any primary documentaiton of that. hgb 7.2 on admit with low MCV ves 8.2 on 01/17/19 and 11.5 10/24/18. She had hospitalizaition for COPD exacerbation 10/2018 requiring 36 hour of mechanical ventilation and had ER visit 01/17/19 for shortness of breath and placed on steroids and abx. Repeat Hgb 6.8 and blood transfusion has been ordered. On outpt med list is ASA and Meloxicam as well as Protonix. LFTs normal, PT/PTT normal. Allergies Allergy/AdvReac Type Severity Reaction Status Date / Time levofloxacin [From Levaquin] AdvReac Severe "goes Verified 01/26/19 02:44 crazy" Home Medications Home Medications Medication Instructions Recorded Confirmed Type alendronate 70 mg PO WK 03/12/18 01/26/19 History aspirin 81 mg PO QAM 03/12/18 01/26/19 History docusate sodium [Stool Softener] 100 mg PO QAM 03/12/18 01/26/19 History ipratropium-albuterol 3 ml INHALATION QID PRN 03/12/18 01/26/19 History lisinopril 20 mg PO QAM 03/12/18 01/26/19 History lorazepam 0.5 mg PO TID PRN 03/12/18 01/26/19 History metoprolol succinate 100 mg PO QAM 03/12/18 01/26/19 History pantoprazole 40 mg PO QAM 03/12/18 01/26/19 History acetaminophen [Tylenol Extra 1,000 mg PO Q6H PRN 08/16/18 01/26/19 History Strength] roflumilast [Daliresp] 250 mcg PO DAILY #30 tab 10/24/18 01/26/19 Rx Saccharomyces boulardii [Florastor] 250 mg PO BID #20 cap 01/17/19 01/26/19 Rx albuterol sulfate [Ventolin HFA] 2 puff INHALATION QID PRN 01/17/19 01/26/19 History atorvastatin 40 mg PO DAILY 01/17/19 01/26/19 History escitalopram oxalate 5 mg PO DAILY 01/17/19 01/26/19 History fluticasone propion-salmeterol 1 inh INHALATION Q12H 01/17/19 01/26/19 History [Wixela Inhub] ipratropium-albuterol [Combivent 1 puff INHALATION Q4H 01/17/19 01/26/19 History Respimat] meloxicam 15 mg PO DAILY 01/17/19 01/26/19 History umeclidinium [Incruse Ellipta] 1 inh INHALATION DAILY 01/17/19 01/26/19 History Patient History Medical History HTN (hypertension) (Chronic) Tobacco abuse (Chronic) Emphysema of lung (Chronic) Hypoxia (Acute) Asthma (Chronic) COPD (chronic obstructive pulmonary disease) (Chronic) 4L O2 at home Heart attack (Resolved) November 2017 COPD with acute exacerbation (Inactive) Anxiety H/O: hysterectomy Hyponatremia Surgical History History of ankle surgery Family History Other COPD (chronic obstructive pulmonary disease) Cancer Social History Preferred Language: [place] Communication Ability: Effective Visual Impairment: No Limitations Hearing Ability: Normal Assisted Living Housekeeper Required: No Beliefs That Will Affect Care: None marital status: Current Living Situation: Spouse Other Information That Helps Us Care for You: No Feels Safe at Home: Yes Safety Concerns: Feels Safe At This Time Smoking Status: Current every day smoker Tobacco Type: cigarettes ; Cigarettes Per Day: 10 ; Do You Dip or Chew Tobacco: No ; Second Hand Exposure: No ; Tobacco Cessation Education Requested by Patient: No Hx Alcohol Use: Yes Alcohol type: beer Hx Substance Use: No Review of Systems Review of Systems: All systems reviewed & are unremarkable except as noted in HPI & below Physical Exam Constitutional: WD/WN, vitals as above Eyes: PERRL, conjunctivae normal, anicteric sclerae ENMT: external ear and nose normal, oropharynx normal Neck: normal visual inspection and trachea midline Respiratory: some increased inspiratory effort, decreased breath sounds. Cardiovascular: RRR, no murmur, no edema Gastrointestinal (Abdomen): normal bowel sounds, soft, nontender, no hepatosplenomegaly Neurologic: PERRL, EOMI, accommodation nl, no face palsy, no dysarthria Psychiatric: A+Ox3, euthymic affect Results & Data Vital Signs (Past 12 Hours) Vital Signs Temp Pulse Pulse Resp BP BP Pulse Ox 01/26/19 11:05 80 24 100 01/26/19 08:00 36.8 C 79 24 137/84 97 01/26/19 07:05 75 75 25 H 99 01/26/19 05:16 82 28 H 100 01/26/19 05:00 37.1 C 80 26 H 170/90 H 98 01/26/19 04:30 73 27 H 126/63 100 01/26/19 04:00 76 28 H 134/67 100 01/26/19 03:40 78 26 H 182/86 H 100 01/26/19 03:26 82 28 H 93 01/26/19 02:30 24 174/103 H 90 01/26/19 02:25 82 30 H 196/94 H 97 01/26/19 02:20 81 25 H 182/91 H 01/26/19 02:15 84 26 H 187/110 H 01/26/19 02:13 82 28 H 192/93 H 99 01/26/19 02:10 85 26 H 95 01/26/19 02:09 100 01/26/19 02:04 36.8 C 82 24 177/94 H 100
[2019-01-26 12:21] LABS: Base Excess VBG 9.4 mEq/L; Oxygen Saturation VBG 81.1 %; pH VBG 7.32 (7.36-7.41)
--- NOTE | 2019-01-26 12:23 | Pulmonary Consultation ---
Date of Consultation January 26, 2019 Assessment & Plan (1) COPD exacerbation: Impression: 68-year-old female with advanced obstructive lung disease who continues to abuse tobacco products admitted with hypercarbic and hypoxemic respiratory failure and failure of outpatient therapy. Recommendations: 1. Acute on chronic hypoxemic and hypercarbic respiratory failure. Continue noninvasive positive pressure ventilation. The patient states that she does not want to be intubated or coded in the event of a cardiac arrest. We will change status to DO NOT RESUSCITATE. I adjusted her BiPAP to see if we can improve blood gas. We will follow his venous blood gas and see how she responds. Outpatient trilogy may be appropriate if the patient survives this current event. 2. COPD: Continue treatment with aggressive bronchodilators. We will add Perforomist and nebulized budesonide to her regimen and continue duo nebs. Continue azithromycin. Doubt Daliresp will offer him much clinical benefit currently. Could consider theophylline if she fails to improve. 3. Cachexia: Likely secondary to COPD. Nutritional consult may be appropriate at a later date. 4. Acute anemia: Transfusion ordered. Will check labs. GI was consulted and tentatively plans for endoscopy later this hospitalization although the patient's respiratory status would have to show significant improvement prior to consideration. Patient's overall prognosis is guarded. (2) Acute on chronic respiratory failure with hypoxia and hypercapnia: (3) Anemia: (4) Emphysema of lung: History of Present Illness Attending Physician: Isidoro Bai MD History of Present Illness Asked by Dr. Bai to evaluate this patient with hypercarbic respiratory failure secondary to COPD with active exacerbation. History is obtained from review the electronic record. Limited history is available from the patient but history is limited due to her being on full face BiPAP. The patient is a 68-year-old female with a history of obstructive lung disease. She unfortunately continues to abuse tobacco products. She was admitted back in October and was placed on mechanical ventilator at that point time for hypoxemic/hypercarbic respiratory failure. She presented to the emergency room early this a.m. with shortness of breath. She was found to be in hypercarbic respiratory failure. She received a azithromycin and prednisone. She did have a decrease in her hemoglobin compared to prior admissions. She was placed on noninvasive positive pressure ventilation, duo nebs, and Solu-Medrol and admitted to the intensive care unit. This morning the patient has been on and off BiPAP. She stated to the nurse and to myself that she does not want to be intubated. She understands that this may result in her demise. We discussed ACLS/CPR which she also declines. She wants to be DO NOT RESUSCITATE DO NOT INTUBATE. She states she does feel very short of breath and is unclear if the BiPAP is offering her a significant clinical benefit. Allergies Allergy/AdvReac Type Severity Reaction Status Date / Time levofloxacin [From Levaquin] AdvReac Severe "goes Verified 01/26/19 02:44 crazy" Home Medications Home Medications Medication Instructions Recorded Confirmed Type alendronate 70 mg PO WK 03/12/18 01/26/19 History aspirin 81 mg PO QAM 03/12/18 01/26/19 History docusate sodium [Stool Softener] 100 mg PO QAM 03/12/18 01/26/19 History ipratropium-albuterol 3 ml INHALATION QID PRN 03/12/18 01/26/19 History lisinopril 20 mg PO QAM 03/12/18 01/26/19 History lorazepam 0.5 mg PO TID PRN 03/12/18 01/26/19 History metoprolol succinate 100 mg PO QAM 03/12/18 01/26/19 History pantoprazole 40 mg PO QAM 03/12/18 01/26/19 History acetaminophen [Tylenol Extra 1,000 mg PO Q6H PRN 08/16/18 01/26/19 History Strength] roflumilast [Daliresp] 250 mcg PO DAILY #30 tab 10/24/18 01/26/19 Rx Saccharomyces boulardii [Florastor] 250 mg PO BID #20 cap 01/17/19 01/26/19 Rx albuterol sulfate [Ventolin HFA] 2 puff INHALATION QID PRN 01/17/19 01/26/19 History atorvastatin 40 mg PO DAILY 01/17/19 01/26/19 History escitalopram oxalate 5 mg PO DAILY 01/17/19 01/26/19 History fluticasone propion-salmeterol 1 inh INHALATION Q12H 01/17/19 01/26/19 History [Wixela Inhub] ipratropium-albuterol [Combivent 1 puff INHALATION Q4H 01/17/19 01/26/19 History Respimat] meloxicam 15 mg PO DAILY 01/17/19 01/26/19 History umeclidinium [Incruse Ellipta] 1 inh INHALATION DAILY 01/17/19 01/26/19 History Patient History Medical History HTN (hypertension) (Chronic) Tobacco abuse (Chronic) Emphysema of lung (Chronic) Hypoxia (Acute) Asthma (Chronic) COPD (chronic obstructive pulmonary disease) (Chronic) 4L O2 at home Heart attack (Resolved) November 2017 COPD with acute exacerbation (Inactive) Anxiety H/O: hysterectomy Hyponatremia Surgical History History of ankle surgery Family History Other COPD (chronic obstructive pulmonary disease) Cancer Social History Preferred Language: Irish Communication Ability: Effective Visual Impairment: No Limitations Hearing Ability: Normal Crucible Packer Required: No Beliefs That Will Affect Care: None marital status: Current Living Situation: Spouse Other Information That Helps Us Care for You: No Feels Safe at Home: Yes Safety Concerns: Feels Safe At This Time Smoking Status: Current every day smoker Tobacco Type: cigarettes ; Cigarettes Per Day: 10 ; Do You Dip or Chew Tobacco: No ; Second Hand Exposure: No ; Tobacco Cessation Education Requested by Patient: No Hx Alcohol Use: Yes Alcohol type: beer Hx Substance Use: No Review of Systems Review of Systems: Limited due to the patient being on full face BiPAP Physical Exam Constitutional: + acute distress, + thin and + cachectic Neck: trachea midline, no thyromegaly Respiratory: Diminished breath sounds bilaterally. Some wheezing auscultated. Accessory muscles of respiration being used Cardiovascular: RRR, no murmur, no edema Gastrointestinal (Abdomen): normal bowel sounds, soft, nontender, no hepatosplenomegaly Skin: no rashes, warm and dry Results & Data Vital Signs (Past 12 Hours) Vital Signs Temp Pulse Pulse Resp BP BP Pulse Ox 01/26/19 11:05 80 24 100 01/26/19 08:00 36.8 C 79 24 137/84 97 01/26/19 07:05 75 75 25 H 99 01/26/19 05:16 82 28 H 100 01/26/19 05:00 37.1 C 80 26 H 170/90 H 98 01/26/19 04:30 73 27 H 126/63 100 01/26/19 04:00 76 28 H 134/67 100 01/26/19 03:40 78 26 H 182/86 H 100 01/26/19 03:26 82 28 H 93 01/26/19 02:30 24 174/103 H 90 01/26/19 02:25 82 30 H 196/94 H 97 01/26/19 02:20 81 25 H 182/91 H 01/26/19 02:15 84 26 H 187/110 H 01/26/19 02:13 82 28 H 192/93 H 99 01/26/19 02:10 85 26 H 95 01/26/19 02:09 100 01/26/19 02:04 36.8 C 82 24 177/94 H 100 Laboratory Results 01/26/19 08:01 01/26/19 01:45 Blood gas early this morning showed a pH 7.31 with a PCO2 of 78 and PO2 of 60. Diagnostic Findings Imaging studies were independently reviewed. XR chest 1V portable HISTORY: 68 years-old Female sob acute shortness of breath COMPARISON: Chest radiograph 01/17/2019, CTA chest 03/15/2018 TECHNIQUE: Portable AP view of the chest FINDINGS: Cardiac silhouette is enlarged, unchanged. Severe emphysema with chronic fibrotic changes redemonstrated. Mildly progressed interstitial opacities about the right lung with ill-defined minimal subsegmental bibasilar densities. Chronic blunting of the costophrenic angles. No pneumothorax or large pleural effusion. Degenerative changes of the shoulders and spine. IMPRESSION: 1. Emphysema with chronic fibrotic changes. 2. Progressively worsened interstitial opacities throughout the right lung may reflect developing asymmetric pulmonary edema or a nonspecific pneumonitis. 3. Minimal bibasilar opacities suggest probable atelectasis. PG Care Time/CCT Total # of Minutes Spent Total Time Spent with Patient: Total time spent is greater than 50% in coordination of care (as documented) at patient's floor/unit and/or counseling patient: Critical Care Time: Yes Total Critical Care Time: 41 41 minutes critical care time
--- NOTE | 2019-01-26 14:47 | History & Physical Bridge Note ---
Date of Service January 26, 2019 History & Physical Bridge Note Patient seen and examined today. Increased work of breathing with significant wheezes. Fatigued appearance. - Discussed with son and daughter. Reached out to , but had to leave a HIPAA-compliant message. Per Dr. Alvarenga's and my conversations with the patient, and my conversations with the family, the patient does not want another intubation or compressions. She and daughter report her quality of life has declined substantially in the last few months. She would like to focus on comfort while not scaling back any treatments. - Morphine 1mg IV Q2h PRN for shortness of breath or pain - Ativan 0.5mg IV Q4h PRN for agitation - Agree with DNR/DNI status - has living will/advanced directions. Daughter is asking him to bring this in. - Continue BiPap as tolerated. Continue breathing treatments, abx, and steroids per pulm physician.
[2019-01-26] MEDS ORDERED: LORazepam 0.5 MG TAB PO PRN (14:52)
[2019-01-26] MEDS ORDERED: MoRPHine SULFATE 2 MG/ML CARP IV PRN (15:14)
[2019-01-26] MEDS ORDERED: LORazepam 0.5 MG/1 ML VIAL IV PRN (15:14)
[2019-01-26] MEDS: ALBUTEROL HFA 8 GM INHALER INH PRN (16:40)
[2019-01-26] MEDS: BUDESONIDE 0.5 MG/2 ML VIAL (PULMICORT) NEB SCH (18:50)
[2019-01-26] MEDS: FORMOTEROL 20 MCG/2 ML VIAL NEB SCH (18:50)
[2019-01-26] MEDS: NICOTINE 14 MG/24 HR PATCH TD SCH (20:38)
[2019-01-26] MEDS ORDERED: VANCOMYCIN HCL 750 MG in SODIUM CHLORIDE 0.9% 250 ML IV SCH (21:00)
[2019-01-27] MEDS: methylPREDNISolone 60 MG in SYRINGE 0 ML IV SCH ×3 (01:29→17:39)
[2019-01-27] MEDS: ALBUT/IPRATROP 3MG/0.5MG NEB 3 ML VIAL NEB SCH ×6 (03:08→23:42)
[2019-01-27] MEDS: ALBUTEROL HFA 8 GM INHALER INH PRN ×2 (06:09→20:12)
[2019-01-27 06:44] LABS: Hematocrit (blood only) 29.6 % (37-47); Hemoglobin 8.5 g/dL (12.0-16.0); Mean Corpuscular Hgb Conc 28.7 g/dL (32-36); Mean Corpuscular Volume 67.6 fL (80-100); Platelet Count 228 K/uL (130-400); RDW Coefficient of Variation 22.2 % (11.5-14.5); Red Blood Count 4.38 M/uL (4.2-5.4); White Blood Count 8.47 K/uL (4.8-10.8)
[2019-01-27 06:45] LABS: Calcium 8.1 mg/dl (8.5-10.1); Creatinine Clr Calc Pharmacy 118.9 ml/min; Est GFR (Non-African American) 115.6; Potassium 4.5 mmol/L (3.5-5.1)
[2019-01-27 06:46] LABS: Anisocytosis Present; Basophils # (auto) 0.01 K/uL (0-0.2); Basophils % (auto) 0.1 %; Giant Platelets 1+; Hypochromasia Present; Immature Granulocytes # (auto) 0.02 K/uL (0.00-0.02); Immature Granulocytes % (auto) 0.2 %; Lymphocytes # (auto) 0.37 K/uL (1.2-3.4); Lymphocytes % (auto) 4.4 %; Monocytes # (auto) 0.24 K/uL (0.11-0.59); Monocytes % (auto) 2.8 %; Neutrophils # (auto) 7.83 K/uL (1.4-6.5); Neutrophils % (auto) 92.5 %; Ovalocytes 1+; Schistocytes 1+
[2019-01-27] MEDS: FORMOTEROL 20 MCG/2 ML VIAL NEB SCH ×2 (06:56→18:54)
[2019-01-27] MEDS: BUDESONIDE 0.5 MG/2 ML VIAL (PULMICORT) NEB SCH ×2 (06:56→18:54)
[2019-01-27] MEDS ORDERED: CALCIUM GLUCONATE 10% 10 ML VIAL IV STA (07:10)
[2019-01-27] MEDS ORDERED: CALCIUM GLUCONATE 10% 2,000 MG in 0.9 % SODIUM CHLORIDE 100 ML IV ONE (07:30)
--- NOTE | 2019-01-27 08:49 | Palliative Care Consultation ---
Date of Consultation January 27, 2019 Assessment & Plan (1) Goals of care, counseling/discussion: This is a 68-year-old female who presented to the hospital with BEYER x 5 days and right elbow pain that was causing discomfort for one week's time. Additional PMH includes: COPD where she wears a baseline of 4LNC home supplemental O2, emphysema, HTN, CAD s/p AMI 11/2017, and anxiety. The patient was evaluated and has started treatment for olecranon bursitis with IV antibiotics. Per family and in discussion with the patient, she has considerably declined over the past few months with increasing fatigue. Palliative Care was consulted to discuss goals of care and provide symptom management for the patient and with the family. -I met with patient in her room, initially it was just the patient. She was visibly using accessory muscles and pursed lip breathing with every breath. Patient also tachypnic and appears to be uncomfortable. -Patient was able to converse with some words and was mentating clearly during out discussion. 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 She indicated that her and her daughter and the rest of the family, are ready to transition from aggressive measures to more comfort measures. Patient has IV Morphine ordered which the nurse administered during my encounter. -The patient confirmed that she would remain a DNR/DNI and does not want to go back on the Bipap. She did trial the Bipap, but does not want to trial it again and confirmed she does NOT want intubated. -We discussed Hospice and symptom management, and at this point, patients daughterMaame was in the room for the conversation confirming that they would like to stop cardiac monitoring, and do NOT want to escalate care. Patient does NOT want Bipap, ICU, inotropic drips, cardioversion, CPR or intubation. -Patient and family OK with continuing current medications if able, including IV antibiotics and blood draws for management of the olecranon bursitis/cellulitis. -In discussing Hospice, the family and patient are well versed with these terms and understanding. They have a goal to return home with Hospice services, and the family is hoping for Wednesday or Wednesday if medically able. -We did discuss the effects of Morphine and the hope that it will take away air hunger and allow her to eat and be more comfortable, will assess ability for discharge over the next 24-48 hours. -Symptom management as follows: --Morphine 1mg IV BID for air hunger or pain --Roxanol 10mg/mL SL Q2 PRN air hunger/pain --Ativan 0.5mg IV Q4h PRN for agitation --Atropine 1% 4gtts Q3 PRN secretions --Box fan to be placed in room at a location patient comfortable with (she did not want it directly blowing on her) -Case management updated and to come discuss hospice agencies. Hospitalist [facility] ed with the above. -I anticipate that she may recover from this exacerbation; however, good to have the goal set while patient able to converse her wishes and that once discharged, patient wants to remain at home during the next exacerbation. -A POLST form was completed indicating DNR.DNI, Comfort Measures only, No additional abx once this round is completed and no artificial nutrition or hydration. This form was discussed with the patient and daughter, signed by daughter. The patients daughter lives 1 mile from her home, son lives 5 miles and lives with patient. -Goal to have a hospice account development representative visit patient today or over the weekend to discuss logistics. -PPS: 30% (2) Acute on chronic respiratory failure with hypoxia and hypercapnia: (3) Anxiety: (4) Tobacco abuse: (5) Emphysema of lung: (6) Cellulitis of arm, right: Supervising Physician Co-Signing Physician Notes Chart reviewed, patient seen and examined-patient's grandson at bedside PE: Patient appears comfortable, does have increased work of breathing HEENT: EOMI, hearing within normal limits Respirations: Unlabored, patient can only speak 1-2 words between breaths, states she is comfortable. Patient with poor air movement and bilateral wheezes CV: Regular rate Abdomen: Soft nontender Extremities: No edema Neuro: Alert and oriented x4 Agree with above note, assessment and plan as per RADHA Paz-will continue to follow and assist patient and family with medical decision making. History of Present Illness Reason for Consultation: Goals of Care Requesting Physician: Dr. Bai Attending Physician: Isidoro Bai MD History of Present Illness This is a 68-year-old female who presented to the hospital with BEYER x 5 days and right elbow pain that was causing discomfort for one week's time. Additional PMH includes: COPD where she wears a baseline of 4LNC home supplemental O2, emphys haley, HTN, CAD s/p AMI 11/2017, and anxiety. The patient was evaluated and has started treatment for ulcraneon bursitis with IV antibiotics. Per family and in discussion with the patient, she has considerably declined over the past few months with increasing fatigue. Palliative Care was consulted to discuss goals of care and provide symptom management for the patient and with the family. Please see Assessment and Plan portion for further details. Thank you kindly for involving palliative care. We will continue to follow. Allergies Allergy/AdvReac Type Severity Reaction Status Date / Time levofloxacin [From Levaquin] AdvReac Severe "goes Verified 01/26/19 02:44 crazy" Home Medications Home Medications Medication Instructions Recorded Confirmed Type alendronate 70 mg PO WK 03/12/18 01/26/19 History aspirin 81 mg PO QAM 03/12/18 01/26/19 History docusate sodium [Stool Softener] 100 mg PO QAM 03/12/18 01/26/19 History ipratropium-albuterol 3 ml INHALATION QID PRN 03/12/18 01/26/19 History lisinopril 20 mg PO QAM 03/12/18 01/26/19 History lorazepam 0.5 mg PO TID PRN 03/12/18 01/26/19 History metoprolol succinate 100 mg PO QAM 03/12/18 01/26/19 History pantoprazole 40 mg PO QAM 03/12/18 01/26/19 History acetaminophen [Tylenol Extra 1,000 mg PO Q6H PRN 08/16/18 01/26/19 History Strength] roflumilast [Daliresp] 250 mcg PO DAILY #30 tab 10/24/18 01/26/19 Rx Saccharomyces boulardii [Florastor] 250 mg PO BID #20 cap 01/17/19 01/26/19 Rx albuterol sulfate [Ventolin HFA] 2 puff INHALATION QID PRN 01/17/19 01/26/19 History atorvastatin 40 mg PO DAILY 01/17/19 01/26/19 History escitalopram oxalate 5 mg PO DAILY 01/17/19 01/26/19 History fluticasone propion-salmeterol 1 inh INHALATION Q12H 01/17/19 01/26/19 History [Wixela Inhub] ipratropium-albuterol [Combivent 1 puff INHALATION Q4H 01/17/19 01/26/19 History Respimat] meloxicam 15 mg PO DAILY 01/17/19 01/26/19 History umeclidinium [Incruse Ellipta] 1 inh INHALATION DAILY 01/17/19 01/26/19 History Patient History Medical History HTN (hypertension) (Chronic) Tobacco abuse (Chronic) Emphysema of lung (Chronic) Hypoxia (Acute) Asthma (Chronic) COPD (chronic obstructive pulmonary disease) (Chronic) 4L O2 at home Heart attack (Resolved) November 2017 COPD with acute exacerbation (Inactive) Anxiety H/O: hysterectomy Hyponatremia Surgical History History of ankle surgery Family History Other COPD (chronic obstructive pulmonary disease) Cancer Social History Preferred Language: Bulgarian Communication Ability: Effective Visual Impairment: No Limitations Hearing Ability: Normal 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 Required: No Beliefs That Will Affect Care: None marital status: Current Living Situation: Spouse Other Information That Helps Us Care for You: No Feels Safe at Home: Yes Safety Concerns: Feels Safe At This Time Smoking Status: Current every day smoker Tobacco Type: cigarettes ; Cigarettes Per Day: 10 ; Do You Dip or Chew Tobacco: No ; Second Hand Exposure: No ; Tobacco Cessation Education Requested by Patient: No Hx Alcohol Use: Yes Alcohol type: beer Hx Substance Use: No Review of Systems Review of Systems: General: patient denies overall pain, but feels she is struggling to breathe and cannot catch her breath HEENT: Pt denies HEAD, dizziness, visual changes, mouth dryness CV: pt denies CP, palpitations Resp: (+) dyspnea GI: (-) N/V/D/Constripation : (-) urinary changes Psych: (+) anxiety related to dyspnea. (-) fear Physical Exam Constitutional: + ill appearing and + in distress Eyes: PERRL, conjunctivae normal, anicteric sclerae ENMT: external ear and nose normal, oropharynx normal Neck: trachea midline, no thyromegaly Respiratory: + respiratory distress, + uses accessory muscles, + tachypneic and + pursed lip breathing Auscultation: + wheezes (expiratory) Cardiovascular: Heart Sounds: normal S1 and normal S2 Vessels: no JVD Extremities: normal capillary refill; no pedal edema nail clubbing Gastrointestinal (Abdomen): normal bowel sounds, soft, nontender, no hepatosplenomegaly Skin: no rashes, warm and dry Psychiatric: A+Ox3, euthymic affect Insight: good insight Judgement: good judgement Lymphatic: no cervical or axillary lymphadenopathy Results & Data Vital Signs (Past 12 Hours) Vital Signs Temp Pulse Resp BP BP Pulse Ox 01/27/19 08:25 181/84 H 01/27/19 07:43 36.9 C 84 20 212/130 H 98 01/27/19 06:58 74 17 100 01/27/19 03:08 76 20 100 01/27/19 03:00 36.4 C L 73 20 179/79 H 100 01/26/19 23:00 36.5 C 77 22 175/82 H 98 01/26/19 22:21 75 24 98 PG Care Time/CCT Total # of Minutes Spent Total Time Spent with Patient: Total time spent is greater than 50% in coordination of care (as documented) at patient's floor/unit and/or counseling patient:70 Time Spent Midlevel Total time spent 70 minutes with > 50% of that time spent assessing the patient, discussing goals of care, completing a POLST form and providing symptom management for the patient.
[2019-01-27] MEDS: PANTOprazole 40 MG in SYRINGE 0 ML IV SCH ×2 (09:02→21:59)
[2019-01-27] MEDS: SACCHAROMYCES BOULARDII 250 MG CAP PO SCH ×2 (09:03→20:34)
[2019-01-27] MEDS: LISINOPRIL 20 MG TAB PO SCH (09:04)
[2019-01-27] MEDS: ROFLUMILAST 500 MCG TAB PO SCH (09:04)
[2019-01-27] MEDS: ESCITALOPRAM OXALATE 10 MG TAB PO SCH (09:07)
[2019-01-27] MEDS: METOPROLOL SUCC 50MG EXT REL TAB PO SCH (09:07)
[2019-01-27] MEDS: ATORVASTATIN 40 MG TAB PO SCH (09:08)
[2019-01-27] MEDS: DOCUSATE SODIUM 100 MG CAP PO SCH (09:08)
[2019-01-27] MEDS: AZITHROMYCIN 500 MG in DEXTROSE 5% 250 ML IV SCH (09:11)
--- NOTE | 2019-01-27 10:13 | Pulmonology Progress Note ---
Date of Service January 27, 2019 Assessment & Plan (1) COPD exacerbation: Impression: 68-year-old female with advanced obstructive lung disease who continues to abuse tobacco products admitted with hypercarbic and hypoxemic respiratory failure and failure of outpatient therapy. Recommendations: 1. Acute on chronic hypoxemic and hypercarbic respiratory failure. I again discussed with the patient the importance of noninvasive positive pressure ventilation. Outcomes are improved if she can continue to use this at night and she may be a candidate for a home trilogy at night however she does not think she could tolerate this. We will continue supportive care. She again reiterated her reluctance to consider BiPAP and her desire to not be intubated in the event of a respiratory arrest and she understands that this may significantly shorten her life span. 2. COPD: Continue treatment with aggressive bronchodilators. We will continue Perforomist and nebulized budesonide and continue duo nebs. Continue azithromycin. Doubt Daliresp will offer him much clinical benefit currently. Could consider theophylline if she fails to improve. 3. Cachexia: Likely secondary to COPD. Nutritional consult may be appropriate at a later date. 4. Acute anemia: Per primary service. Her respiratory status would make any endoscopic evaluation high risk. Patient's overall prognosis is guarded. (2) Acute on chronic respiratory failure with hypoxia and hypercapnia: (3) Anemia: (4) Emphysema of lung: Subjective Patient seen and examined in EMR reviewed. She was transferred up to the floor. She continues to decline BiPAP as she states it makes her breathing worse. She does become short of breath with any significant activity. She is wheezing. She does feel that the inhalers are beneficial. She is concerned about her elbow as she states nothing is been done at Review of Systems Review of Systems: Unchanged from prior Physical Exam Constitutional: + acute distress, + thin and + cachectic Neck: trachea midline, no thyromegaly Cardiovascular: RRR, no murmur, no edema Gastrointestinal (Abdomen): normal bowel sounds, soft, nontender, no hepatosplenomegaly Skin: no rashes, warm and dry Results & Data Vital Signs (Past 12 Hours) Vital Signs Temp Pulse Resp BP BP Pulse Ox 01/27/19 08:25 181/84 H 01/27/19 07:43 36.9 C 84 20 212/130 H 98 01/27/19 06:58 74 17 100 01/27/19 03:08 76 20 100 01/27/19 03:00 36.4 C L 73 20 179/79 H 100 01/26/19 23:00 36.5 C 77 22 175/82 H 98 01/26/19 22:21 75 24 98 PG Care Time/CCT Total # of Minutes Spent Total Time Spent with Patient: Total time spent is greater than 50% in coordination of care (as documented) at patient's floor/unit and/or counseling patient:
[2019-01-27] MEDS ORDERED: MoRPHine SULFATE 5 MG/0.25 ML UDP ONE (10:14)
[2019-01-27] MEDS: MoRPHine SULFATE 2 MG/ML CARP IV SCH ×2 (10:18→20:39)
[2019-01-27] MEDS ORDERED: ATROPINE SULFATE 1% OP SOLN 5 ML BTL PO PRN (12:07)
[2019-01-27] MEDS: cephALEXin 500 MG CAP PO SCH ×2 (13:09→20:34)
[2019-01-27] MEDS: SULFAMETHOXAZOLE/TRIMETHOPRIM DS 800/160MG TAB PO SCH ×2 (13:09→20:34)
[2019-01-27] MEDS: MoRPHine SULFATE 10 MG/0.5 ML UDP PO PRN ×2 (13:16→23:19)
--- NOTE | 2019-01-27 14:31 | Gastroenterology Progress Note ---
Date of Service January 27, 2019 Assessment & Plan (1) Anemia: Microcytic anemia---consistent with Fe deficiency. Transfuse prn--improved post transfusion. heme pos stool-- formal hemoccult not done secondary to no stools Pt basically on hospice care and is high risk for endoscopy per pulmonary. REcommend avoid ASA and NSAIDs. Treat possible PUD with PPI and no EGD or other endscopy. Discussed with patient and daughter. Will sign off. Please call for further questiosn. Subjective CC f/u anemia HPI Daughter with patient for H and P. Per patient no stools since admit. She denies abd pain. Review of Systems Respiratory: + dyspnea about the same per patient Cardiovascular: no chest pain Physical Exam Constitutional: WD/WN, vitals as above Respiratory: decreased breath sounds Cardiovascular: RRR, no murmur, no edema Gastrointestinal (Abdomen): normal bowel sounds, soft, nontender, no hepatosplenomegaly Neurologic: PERRL, EOMI, accommodation nl, no face palsy, no dysarthria Psychiatric: A+Ox3, euthymic affect Results & Data Vital Signs (Past 12 Hours) Vital Signs Temp Pulse Pulse Resp BP BP Pulse Ox 01/27/19 11:06 36.7 C 78 22 184/87 H 100 01/27/19 11:01 82 18 97 01/27/19 08:25 181/84 H 01/27/19 08:00 70 01/27/19 07:43 36.9 C 84 20 212/130 H 98 01/27/19 06:58 74 17 100 01/27/19 03:08 76 20 100 01/27/19 03:00 36.4 C L 73 20 179/79 H 100
--- NOTE | 2019-01-27 15:29 | Hospitalist Progress Note ---
Date of Service January 27, 2019 Assessment & Plan (1) COPD exacerbation: Unknown exacerbation, though she appears to be very sensitive to heat. Continues to smoke. - Continue DuoNebs, other nebulizers - Continue steroids -> Switched to prednisone on 01/27 - Continue azithromycin - Continue NIPPV as tolerated - Morphine for air hunger - Transitioning to hospice & more comfort care direction (2) Anemia: Very likely due to upper GI bleed. Acute blood loss anemia. Possibly due to aspirin and meloxicam use. - Evaluated by GI. Initial plan for EGD on Wednesday; however, given our current comfort direction and high risk, they have advised medical management and signed off. - Received 1 unit of PRBCs on 01/26 with hgb bump from 6.8 to 8.5. (3) Cellulitis of arm, right: Right elbow cellulitis versus bursitis. Extensive right elbow region erythema, warmth, edema and induration. - Initially on vancomycin with improvement in the redness (now clearly within the drawn borders) - Switched to Bactrim/Keflex with discussion from pharmacy on 01/27 - Monitor area for continued improvement. Will need 10-day course. (End date: 02/05/2019) - Follow blood cultures (4) CAD (coronary artery disease): No chest pain. - Continue home metoprolol, lisinopril and atorvastatin - Hold home aspirin (5) Anxiety: Significant anxiety over her shortness of breath and COPD. 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 No symptoms. - Monitor (7) HTN (hypertension): BP is consistently high in the hospital, though she is under stress with her breathing. - Continue BP meds as above - Hydralazine PRN (8) Tobacco abuse: Continues to smoke. - Counseled cessation (9) DVT prophylaxis: SCDs given concern for GI bleeding Subjective Feeling better today, though still with shortness of breath. No cough, no other major concerns. Review of Systems Review of Systems: All systems reviewed & are unremarkable except as noted in HPI & below Physical Exam Constitutional: WD/WN, vitals as above Eyes: EOM intact bilaterally; no conjunctival abnormality ENMT: external ear and nose normal, oropharynx normal Neck: trachea midline, no thyromegaly normal visual inspection Respiratory: + respiratory distress, + labored breathing, + prolonged expiratory phase, + audible wheezes and + nasal flaring Auscultation: + wheezes (Heavy throughout) Cardiovascular: RRR, no murmur, no edema Gastrointestinal (Abdomen): Inspection/Auscultation: abdomen normal to inspection; abdomen not distended Musculoskeletal: no cyanosis or clubbing, extremities motor strength 5/5 Skin: no rashes, warm and dry Neurologic: moves all extremities and awake Psychiatric: Orientation: alert, oriented to person and cooperative Results & Data Vital Signs (Past 12 Hours) Vital Signs Temp Pulse Pulse Resp BP BP Pulse Ox 01/27/19 15:17 71 16 98 01/27/19 11:06 36.7 C 78 22 184/87 H 100 01/27/19 11:01 82 18 97 01/27/19 08:25 181/84 H 01/27/19 08:00 70 01/27/19 07:43 36.9 C 84 20 212/130 H 98 01/27/19 06:58 74 17 100 PG Care Time/CCT Total # of Minutes Spent Total Time Spent with Patient: Total time spent is greater than 50% in coordination of care (as documented) at patient's floor/unit and/or counseling patient: (1) CAD (coronary artery disease) Coronary Disease-Associated Artery/Lesion type: [place] artery [place] vs. transplanted heart: [place] heart Associated angina: without angina Qualified Code(s): I25.10 - Atherosclerotic heart disease of [place] coronary artery without angina pectoris (2) HTN (hypertension) Hypertension type: essential hypertension Qualified Code(s): I10 - Essential (primary) hypertension
[2019-01-27] MEDS ORDERED: HydrALAZINE HCL 20 MG/ML VIAL IV PRN (17:47)
[2019-01-27] MEDS: NICOTINE 14 MG/24 HR PATCH TD SCH (20:15)
[2019-01-27] MEDS: FLUTICASONE/SALMETEROL 250/50 (ADVAIR) 14 PUFF/1 INHALER INH SCH ×3 (21:27→22:01)
[2019-01-28] MEDS: ALBUT/IPRATROP 3MG/0.5MG NEB 3 ML VIAL NEB SCH ×6 (03:15→23:55)
[2019-01-28] MEDS: FORMOTEROL 20 MCG/2 ML VIAL NEB SCH ×2 (07:19→19:19)
[2019-01-28] MEDS: BUDESONIDE 0.5 MG/2 ML VIAL (PULMICORT) NEB SCH ×2 (07:19→19:19)
[2019-01-28] MEDS: predniSONE 20 MG TAB PO SCH (08:32)
[2019-01-28] MEDS: SACCHAROMYCES BOULARDII 250 MG CAP PO SCH ×2 (08:32→20:28)
[2019-01-28] MEDS: cephALEXin 500 MG CAP PO SCH ×3 (08:32→20:28)
[2019-01-28] MEDS: PANTOprazole 40 MG TAB PO SCH (08:32)
[2019-01-28] MEDS: ROFLUMILAST 500 MCG TAB PO SCH (08:33)
[2019-01-28] MEDS: SULFAMETHOXAZOLE/TRIMETHOPRIM DS 800/160MG TAB PO SCH ×2 (08:33→20:28)
[2019-01-28] MEDS: ESCITALOPRAM OXALATE 10 MG TAB PO SCH (08:33)
[2019-01-28] MEDS: METOPROLOL SUCC 50MG EXT REL TAB PO SCH (08:33)
[2019-01-28] MEDS: ATORVASTATIN 40 MG TAB PO SCH (08:33)
[2019-01-28] MEDS: LISINOPRIL 20 MG TAB PO SCH (08:34)
[2019-01-28] MEDS: FLUTICASONE/SALMETEROL 250/50 (ADVAIR) 14 PUFF/1 INHALER INH SCH ×2 (08:34→20:25)
[2019-01-28] MEDS: DOCUSATE SODIUM 100 MG CAP PO SCH (09:37)
[2019-01-28 09:47] LABS: Hematocrit (blood only) 28.8 % (37-47); Hemoglobin 8.2 g/dL (12.0-16.0); Mean Corpuscular Hgb Conc 28.5 g/dL (32-36); Mean Corpuscular Volume 68.1 fL (80-100); Nucleated RBC # (auto) 0.02 K/uL (0-0); Nucleated RBC % (auto) 0.3 %; Platelet Count 228 K/uL (130-400); RDW Coefficient of Variation 23.6 % (11.5-14.5); RDW Standard Deviation 57.6 fL (36.4-46.3); Red Blood Count 4.23 M/uL (4.2-5.4)
[2019-01-28 09:52] LABS: BUN Creatinine Ratio 22.3 (10-20); Calcium 8.1 mg/dl (8.5-10.1); Creatinine Clr Calc Pharmacy 88.6 ml/min; Est GFR (African American) 121.9; Est GFR (Non-African American) 105.2; Potassium 4.2 mmol/L (3.5-5.1)
[2019-01-28] MEDS: MoRPHine SULFATE 2 MG/ML CARP IV SCH ×2 (09:54→20:33)
[2019-01-28] MEDS: AZITHROMYCIN 500 MG in DEXTROSE 5% 250 ML IV SCH (09:54)
--- NOTE | 2019-01-28 10:21 | Pulmonology Progress Note ---
Date of Service January 28, 2019 Assessment & Plan (1) COPD exacerbation: Impression: 68-year-old female with advanced obstructive lung disease who continues to abuse tobacco products admitted with hypercarbic and hypoxemic respiratory failure and failure of outpatient therapy. Recommendations: 1. Acute on chronic hypoxemic and hypercarbic respiratory failure. Improving. Continue current care. We again broached the possibility of nocturnal trilogy however the patient states she is significantly claustrophobic. We discussed alternative interfaces including a nasal mask. She does not really want to consider this as a treatment option. I did advise her that it has been shown to be beneficial in decreasing exacerbations, hospitalizations, and possibly improving long-term outcomes. She is taking it under advisement. We will readdress later.. 2. COPD: Continue treatment with aggressive bronchodilators. We will continue Perforomist and nebulized budesonide and continue duo nebs. Continue azithromycin. Doubt Daliresp will offer him much clinical benefit currently. 3. Cachexia: Likely secondary to COPD. Nutritional consult may be appropriate 4. Tobacco abuse: The patient was advised that continued tobacco abuse will likely result in continued decline of lung function and shortening of her life span read presented options including nicotine replacement smoking cessation. Patient's overall prognosis is guarded. (2) Acute on chronic respiratory failure with hypoxia and hypercapnia: (3) Anemia: (4) Emphysema of lung: Subjective Patient seen and examined. EMR reviewed the patient is improving clinically. She appears much less labored with regards to her breathing. Her wheezing is much less. She continues to decline noninvasive positive pressure ventilation. She is tolerating a diet and is minimally ambulatory. Physical Exam Constitutional: + acute distress, + thin and + cachectic Neck: trachea midline, no thyromegaly Respiratory: Much less wheezing today. Breath sounds bilaterally and equal Cardiovascular: RRR, no murmur, no edema Gastrointestinal (Abdomen): normal bowel sounds, soft, nontender, no hepatosplenomegaly Skin: no rashes, warm and dry Results & Data Vital Signs (Past 12 Hours) Vital Signs Temp Pulse Resp BP BP Pulse Ox 01/28/19 07:50 36.9 C 68 18 147/71 H 97 01/28/19 07:23 88 17 98 01/28/19 03:15 66 20 98 01/27/19 23:42 71 18 98 01/27/19 23:00 36.8 C 73 18 150/61 H 99 PG Care Time/CCT Total # of Minutes Spent Total Time Spent with Patient: Total time spent is greater than 50% in coordination of care (as documented) at patient's floor/unit and/or counseling patient:
[2019-01-28 10:27] LABS: Anisocytosis Present; Basophils # (auto) 0.04 K/uL (0-0.2); Basophils % (auto) 0.6 %; Eosinophils # (auto) 0.07 K/uL (0-0.5); Hypochromasia Present; Immature Granulocytes # (auto) 0.01 K/uL (0.00-0.02); Immature Granulocytes % (auto) 0.1 %; Lymphocytes # (auto) 0.87 K/uL (1.2-3.4); Lymphocytes % (auto) 12.1 %; Microcytosis Present; Monocytes # (auto) 1.05 K/uL (0.11-0.59); Monocytes % (auto) 14.6 %; Neutrophils # (auto) 5.16 K/uL (1.4-6.5); Neutrophils % (auto) 71.6 %
[2019-01-28] MEDS: MoRPHine SULFATE 10 MG/0.5 ML UDP PO PRN (11:43)
[2019-01-28] MEDS: ALBUTEROL HFA 8 GM INHALER INH PRN ×2 (11:44→20:26)
--- NOTE | 2019-01-28 13:20 | Hospitalist Progress Note ---
Date of Service January 28, 2019 Assessment & Plan (1) COPD exacerbation: Unknown cause of exacerbation, though she appears to be very sensitive to heat. Continues to smoke which certainly plays a role. - Continue DuoNebs, other nebulizers - Continue steroids -> Switched to prednisone on 01/27 - Continue azithromycin - Continue NIPPV as tolerated - Morphine for air hunger - Transitioning to hospice & more comfort care direction (2) Anemia: Very likely due to upper GI bleed due to aspirin and meloxicam use. Acute blood loss anemia. - Evaluated by GI. Initial plan for EGD on Wednesday; however, given our current comfort direction and high risk, they have advised medical management and signed off. - Received 1 unit of PRBCs on 01/26 with hgb bump from 6.8 to 8.5. - On 01/27, down slightly to 8.2 -> Given plan for hospice on Wednesday, will not bother to check. GI has signed off. Continue PPI PO BID. (3) Cellulitis of arm, right: Right elbow cellulitis versus bursitis. Extensive right elbow region erythema, warmth, edema and induration. - Initially on vancomycin with improvement in the redness (now clearly within the drawn borders) - Switched to Bactrim/Keflex with discussion from pharmacy on 01/27 - Monitor area for continued improvement. Will need 10-day course. (End date: 02/05/2019) - Follow blood cultures from 01/26 -> No growth as of 01/28 (4) CAD (coronary artery disease): No chest pain. - Continue home metoprolol, lisinopril and atorvastatin - Hold home aspirin (5) Anxiety: Significant anxiety over her shortness of breath and COPD. 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 No symptoms. - Monitor (7) HTN (hypertension): BP is consistently high in the hospital, though she is under stress with her breathing. - Continue BP meds as above - Hydralazine PRN (8) Tobacco abuse: Continues to smoke. - Counseled cessation (9) DVT prophylaxis: SCDs given concern for GI bleeding Subjective Feels her breathing is fairly good while resting. Gets shortness of breath with any movement however. Ready to get home on Wednesday, hopefully with hospice. Review of Systems Review of Systems: All systems reviewed & are unremarkable except as noted in HPI & below Physical Exam Constitutional: WD/WN, vitals as above Eyes: EOM intact bilaterally; no conjunctival abnormality ENMT: external ear and nose normal, oropharynx normal Neck: trachea midline, no thyromegaly normal visual inspection Respiratory: + respiratory distress, + labored breathing, + prolonged expiratory phase, + audible wheezes and + nasal flaring Auscultation: + wheezes (Chief Writer, but throughout) Cardiovascular: RRR, no murmur, no edema Gastrointestinal (Abdomen): Inspection/Auscultation: abdomen normal to inspection; abdomen not distended Musculoskeletal: no cyanosis or clubbing, extremities motor strength 5/5 Skin: no rashes, warm and dry Neurologic: moves all extremities and awake Psychiatric: Orientation: alert, oriented to person and cooperative Results & Data Vital Signs (Past 12 Hours) Vital Signs Temp Pulse Resp BP Pulse Ox 01/28/19 11:12 72 17 97 01/28/19 07:50 36.9 C 68 18 147/71 H 97 01/28/19 07:23 88 17 98 01/28/19 03:15 66 20 98 PG Care Time/CCT Total # of Minutes Spent Total Time Spent with Patient: Total time spent is greater than 50% in coordination of care (as documented) at patient's floor/unit and/or counseling patient: (1) CAD (coronary artery disease) Coronary Disease-Associated Artery/Lesion type: [place] artery [place] vs. transplanted heart: [place] heart Associated angina: without angina Qualified Code(s): I25.10 - Atherosclerotic heart disease of [place] coronary artery without angina pectoris (2) HTN (hypertension) Hypertension type: essential hypertension Qualified Code(s): I10 - Essential (primary) hypertension
[2019-01-28] MEDS ORDERED: VANCOMYCIN TROUGH ONE (14:30)
[2019-01-28] MEDS: NICOTINE 14 MG/24 HR PATCH TD SCH (20:26)
[2019-01-29] MEDS: ALBUTEROL HFA 8 GM INHALER INH PRN ×2 (01:08→17:56)
[2019-01-29] MEDS: ALBUT/IPRATROP 3MG/0.5MG NEB 3 ML VIAL NEB SCH ×6 (03:01→22:54)
[2019-01-29 06:39] LABS: Hematocrit (blood only) 31.2 % (37-47); Hemoglobin 8.9 g/dL (12.0-16.0); Mean Corpuscular Hgb Conc 28.5 g/dL (32-36); Mean Corpuscular Volume 68.4 fL (80-100); Platelet Count 240 K/uL (130-400); RDW Coefficient of Variation 24.3 % (11.5-14.5); RDW Standard Deviation 59.1 fL (36.4-46.3); Red Blood Count 4.56 M/uL (4.2-5.4); White Blood Count 8.35 K/uL (4.8-10.8)
[2019-01-29 07:02] LABS: Anisocytosis Present; Basophils # (auto) 0.06 K/uL (0-0.2); Basophils % (auto) 0.7 %; Eosinophils # (auto) 0.17 K/uL (0-0.5); Hypochromasia Present; Immature Granulocytes # (auto) 0.02 K/uL (0.00-0.02); Immature Granulocytes % (auto) 0.2 %; Lymphocytes % (auto) 10.8 %; Microcytosis Present; Monocytes # (auto) 0.95 K/uL (0.11-0.59); Monocytes % (auto) 11.4 %; Neutrophils # (auto) 6.25 K/uL (1.4-6.5); Neutrophils % (auto) 74.9 %; Ovalocytes 1+
[2019-01-29] MEDS: FORMOTEROL 20 MCG/2 ML VIAL NEB SCH ×2 (07:05→19:41)
[2019-01-29] MEDS: BUDESONIDE 0.5 MG/2 ML VIAL (PULMICORT) NEB SCH ×2 (07:05→19:41)
[2019-01-29 07:15] LABS: Calcium 8.7 mg/dl (8.5-10.1); Creatinine Clr Calc Pharmacy 76.4 ml/min; Est GFR (African American) 116.1; Est GFR (Non-African American) 100.2
[2019-01-29 07:25] LABS: Potassium 4.9 mmol/L (3.5-5.1)
--- NOTE | 2019-01-29 08:21 | Pulmonology Progress Note ---
Date of Service January 29, 2019 Assessment & Plan (1) COPD exacerbation: Impression: 68-year-old female with end-stage obstructive lung disease and chronic hypoxemic and hypercarbic respiratory failure who continues to abuse tobacco products admitted with hypercarbic and hypoxemic respiratory failure and failure of outpatient therapy. Recommendations: 1. Acute on chronic hypoxemic and hypercarbic respiratory failure. Stable. Continue current care. We again broached the possibility of nocturnal AVAPS however the patient continues to refuse. I advised her that her lung disease is end-stage and there is likely little else can be done. She is not a candidate for consideration for transplantation given her age, ongoing tobacco abuse, and decreased body mass. 2. COPD: Continue treatment with aggressive bronchodilators. We will continue Perforomist and nebulized budesonide and continue duo nebs. Continue azithromycin. Doubt Daliresp will offer him much clinical benefit currently. Continue prednisone for now. It is possible the metoprolol could be having some contribution but she does not appear bronchospastic control of her blood pressure is more important at this point time. Will defer changes to her antihypertensive regimen to her hospitalist. 3. Cachexia: Likely secondary to COPD. Nutritional consult may be appropriate 4. Tobacco abuse: The patient was advised that continued tobacco abuse will likely result in continued decline of lung function and shortening of her life span read presented options including nicotine replacement smoking cessation. Patient's overall prognosis is poor. Agree with palliative care consultation. Focus on symptom control may be appropriate. (2) Acute on chronic respiratory failure with hypoxia and hypercapnia: (3) Anemia: (4) Emphysema of lung: Subjective Patient seen and examined. EMR reviewed. The patient states that her breathing is somewhat more labored this morning. She wonders any noninvasive positive pressure ventilation. She is supposed to meet with palliative care but states she is not ready for "a hospice bed". She again confirms that she does not want aggressive care for her lung disease and wants to continue to abuse tobacco products. She has not had any fevers or chills. She is on 4 L of oxygen chronically. Review of Systems Review of Systems: Unchanged from prior Physical Exam Constitutional: + acute distress, + thin and + cachectic Neck: trachea midline, no thyromegaly Respiratory: Decreased air movement bilaterally. Increased AP diameter of chest consistent with obstructive lung disease. Cardiovascular: RRR, no murmur, no edema Gastrointestinal (Abdomen): normal bowel sounds, soft, nontender, no hepatosplenomegaly Skin: no rashes, warm and dry Results & Data Vital Signs (Past 12 Hours) Vital Signs Temp Pulse Resp BP BP Pulse Ox 01/29/19 07:27 36.8 C 76 20 202/96 H 183/75 H 97 01/29/19 07:07 75 18 99 01/29/19 03:03 68 18 100 01/28/19 23:57 73 18 179/83 H 99 01/28/19 23:30 36.9 C 76 23 188/79 H 98 PG Care Time/CCT Total # of Minutes Spent Total Time Spent with Patient: Total time spent is greater than 50% in coordination of care (as documented) at patient's floor/unit and/or counseling patient:
[2019-01-29] MEDS: FLUTICASONE/SALMETEROL 250/50 (ADVAIR) 14 PUFF/1 INHALER INH SCH (08:41)
[2019-01-29] MEDS: ROFLUMILAST 500 MCG TAB PO SCH (08:42)
[2019-01-29] MEDS: SACCHAROMYCES BOULARDII 250 MG CAP PO SCH ×2 (08:43→21:05)
[2019-01-29] MEDS: cephALEXin 500 MG CAP PO SCH (08:43)
[2019-01-29] MEDS: ESCITALOPRAM OXALATE 10 MG TAB PO SCH (08:44)
[2019-01-29] MEDS: predniSONE 20 MG TAB PO SCH (08:44)
[2019-01-29] MEDS: ATORVASTATIN 40 MG TAB PO SCH (08:44)
[2019-01-29] MEDS: METOPROLOL SUCC 50MG EXT REL TAB PO SCH (08:45)
[2019-01-29] MEDS: SULFAMETHOXAZOLE/TRIMETHOPRIM DS 800/160MG TAB PO SCH ×2 (08:45→21:05)
[2019-01-29] MEDS: PANTOprazole 40 MG TAB PO SCH (08:45)
[2019-01-29] MEDS: LISINOPRIL 20 MG TAB PO SCH (08:46)
[2019-01-29] MEDS: MoRPHine SULFATE 2 MG/ML CARP IV SCH (08:56)
[2019-01-29] MEDS: AZITHROMYCIN 500 MG in DEXTROSE 5% 250 ML IV SCH (08:56)
[2019-01-29] MEDS: DOCUSATE SODIUM 100 MG CAP PO SCH ×2 (08:56→21:05)
[2019-01-29] MEDS: AMLODIPINE BESYLATE 5 MG TAB PO SCH (11:15)
[2019-01-29] MEDS: MoRPHine SULFATE 10 MG/0.5 ML UDP PO PRN (13:14)
--- NOTE | 2019-01-29 14:46 | Hospitalist Progress Note ---
Date of Service January 29, 2019 Assessment & Plan (1) COPD exacerbation: Unknown cause of exacerbation, though she appears to be very sensitive to heat. Continues to smoke which certainly plays a role. Somewhat improved since admission, but has not been out of bed yet - Continue scheduled albuterol nebulizer and scheduled inhaled corticosteroid in the form of budesonide twice daily -Continue scheduled formoterol nebulizer twice daily -No need for Advair while on scheduled nebulizers as above - Continue steroids -> Switched to prednisone on 01/27-continue 40 mg dose daily for now - Continue azithromycin and convert to p.o. for 2 more days at the 250 mg dose -She cannot tolerate NIPPV-continue supplemental O2 at 4 L nasal cannula -Continue morphine for air hunger but convert from IV to p.o. for transition to home- will make her dose Roxanol 5 mg p.o. every 3 hours as needed shortness of breath - Transitioning to hospice & more comfort care direction-awaiting palliative care consultation on Wednesday for discussion of goals of care for end-stage COPD -Continue Daliresp however pulmonology does not think it is of much benefit for her at this point (2) Anemia: Very likely due to upper GI bleed due to aspirin and meloxicam use. Acute blood loss anemia. - Evaluated by GI. Initial plan for EGD, however, given our current comfort direction and high risk, they have advised medical management and signed off. - Received 1 unit of PRBCs on 01/26 with hgb bump from 6.8 to 8.5. - On 01/27, down slightly to 8.2 but now hemoglobin up to 8.9-> Given plan for hospice on Wednesday, will not check any further CBC. GI has signed off. -Continue PPI PO BID. -Have since stopped NSAIDs and aspirin (3) Cellulitis of arm, right: Right elbow cellulitis versus bursitis. Extensive right elbow region erythema, warmth, edema and induration. - Initially on vancomycin with improvement in the erythema - Switched to Bactrim/Keflex with discussion from pharmacy on 01/27 -No need for Keflex in addition to Bactrim-we will discontinue Keflex-Bactrim should give great coverage for both staph and strep - Monitor area for continued improvement. Will need 10-day course. (End date: 02/05/2019) - Follow blood cultures from 01/26 -> No growth as of 01/28 (4) CAD (coronary artery disease): No chest pain. - Continue home metoprolol, lisinopril and atorvastatin - Hold home aspirin for presumed acute GI bleed (5) Anxiety: Significant anxiety over her shortness of breath and COPD. 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 No symptoms. -mild, sodium 135 (7) HTN (hypertension): BP significantly elevated today with a systolic in the low 200s - Continue BP meds as above - Hydralazine PRN -Add amlodipine 5 mg daily -Continue Toprol-XL 100 mg daily -Continue lisinopril 20 mg p.o. once daily -Weaning prednisone eventually which should help also (8) Tobacco abuse: Continues to smoke. Is not interested in cessation - Counseled on cessation -Continue nicotine replacement therapy (9) DVT prophylaxis: SCDs given concern for GI bleeding Disposition-advised patient to try getting out of bed to a chair today to see if she will be able to transition to hospice at home and have her symptoms controlled -Awaiting palliative care consultation on Wednesday Could be discharged home in the next 1 to 2 days Subjective Patient reports her shortness of breath is about the same today as previously. She is coughing but is not able to bring any sputum up. Denies headache or lightheadedness, denies chest pains or abdominal pains. No nausea. She is eating somewhat. Her blood pressure was significantly elevated today. She is still refusing BiPAP as she states she is severely claustrophobic. She does state that the morphine is really helping her feel less short of breath. Review of Systems Review of Systems: All systems reviewed & are unremarkable except as noted in HPI & below Physical Exam Constitutional: + thin; no acute distress Eyes: + anicteric sclerae Neck: trachea midline, no thyromegaly Respiratory: normal respiratory effort; no labored breathing Auscultation: + diminished lung sounds (Barely audible breath sounds throughout) and + wheezes (Some faint inspiratory and expiratory wheezes bilaterally); no crackles and no rhonchi Cardiovascular: RRR, no murmur, no edema Gastrointestinal (Abdomen): normal bowel sounds, soft, nontender, no hepatosplenomegaly Musculoskeletal: Extremities: + extremities abnormal to inspection (Right elbow with mild erythema and small 0.5 cm open wound with scant white drainage), no cyanosis and no clubbing Neurologic: moves all extremities and awake; no focal motor deficits Psychiatric: A+Ox3, euthymic affect Results & Data Vital Signs (Past 12 Hours) Vital Signs Temp Pulse Pulse Pulse Resp BP BP 01/29/19 14:30 71 158/69 H 01/29/19 11:11 70 20 01/29/19 07:27 36.8 C 76 20 202/96 H 183/75 H 01/29/19 07:07 75 18 01/29/19 03:03 68 18 Pulse Ox 01/29/19 14:30 01/29/19 11:11 98 01/29/19 07:27 97 01/29/19 07:07 99 01/29/19 03:03 100 Laboratory Results 01/29/19 01/29/19 Range/Units 06:09 06:09 WBC 8.35 (4.8-10.8) K/uL RBC 4.56 (4.2-5.4) M/uL Hgb 8.9 L (12.0-16.0) g/dL Hct 31.2 L (37-47) % MCV 68.4 L (80-100) fL MCH 19.5 L (25-34) pg MCHC 28.5 L (32-36) g/dL RDW Std Deviation 59.1 H (36.4-46.3) fL RDW Coeff of [place] 24.3 H (11.5-14.5) % Plt Count 240 (130-400) K/uL Immature Gran % (Auto) 0.2 % Neut % (Auto) 74.9 % Lymph % (Auto) 10.8 % [place] % (Auto) 11.4 % Eos % (Auto) 2.0 % Baso % (Auto) 0.7 % Immature Gran # (Auto) 0.02 (0.00-0.02) K/uL Neut # (Auto) 6.25 (1.4-6.5) K/uL Lymph # (Auto) 0.90 L (1.2-3.4) K/uL [place] # (Auto) 0.95 H (0.11-0.59) K/uL Eos # (Auto) 0.17 (0-0.5) K/uL Baso # (Auto) 0.06 (0-0.2) K/uL Hypochromasia Present Anisocytosis Present Microcytosis Present Ovalocytes 1+ Sodium 135 L (136-145) mmol/L Potassium 4.9 D (3.5-5.1) mmol/L Chloride 94 L (98-107) mmol/L Carbon Dioxide 40 H (21-32) mmol/L Anion Gap 1.0 L (3-11) BUN 8 (7-18) mg/dl Creatinine 0.51 L (0.6-1.2) mg/dl Est Cr Clr Drug Dosing 76.4 ml/min Est GFR ( Amer) 116.1 Est GFR (Non-Af Amer) 100.2 BUN/Creatinine Ratio 16.0 (10-20) Glucose 89 (70-99) mg/dl Calcium 8.7 (8.5-10.1) mg/dl PG Care Time/CCT Total # of Minutes Spent Total Time Spent with Patient: Total time spent is greater than 50% in coordination of care (as documented) at patient's floor/unit and/or counseling patient: (1) CAD (coronary artery disease) Associated angina: without angina Coronary Disease-Associated Artery/Lesion type: [place] artery [place] vs. transplanted heart: [place] heart Qualified Code(s): I25.10 - Atherosclerotic heart disease of [place] coronary artery without angina pectoris (2) HTN (hypertension) Hypertension type: essential hypertension Qualified Code(s): I10 - Essential (primary) hypertension
[2019-01-29] MEDS: POLYETHYLENE (MIRALAX) 17 GM PACK PO SCH (14:53)
[2019-01-29] MEDS ORDERED: MoRPHine SULFATE 10 MG/0.5 ML UDP ONE (17:51)
[2019-01-29] MEDS ORDERED: MoRPHine SULFATE 10 MG/0.5 ML UDP PO SCH (21:00)
[2019-01-29] MEDS: NICOTINE 14 MG/24 HR PATCH TD SCH (21:04)
[2019-01-30] MEDS: MoRPHine SULFATE 5 MG/0.25 ML UDP PO PRN ×3 (00:31→12:42)
[2019-01-30] MEDS: ALBUT/IPRATROP 3MG/0.5MG NEB 3 ML VIAL NEB SCH ×3 (02:02→11:13)
[2019-01-30] MEDS: BUDESONIDE 0.5 MG/2 ML VIAL (PULMICORT) NEB SCH (07:08)
[2019-01-30] MEDS: FORMOTEROL 20 MCG/2 ML VIAL NEB SCH (07:08)
[2019-01-30] MEDS ORDERED: AZITHROMYCIN 250 MG TAB PO SCH (09:00)
[2019-01-30] MEDS: ESCITALOPRAM OXALATE 10 MG TAB PO SCH (09:19)
[2019-01-30] MEDS: ATORVASTATIN 40 MG TAB PO SCH (09:19)
[2019-01-30] MEDS: DOCUSATE SODIUM 100 MG CAP PO SCH (09:19)
[2019-01-30] MEDS: METOPROLOL SUCC 50MG EXT REL TAB PO SCH (09:20)
[2019-01-30] MEDS: SACCHAROMYCES BOULARDII 250 MG CAP PO SCH (09:20)
[2019-01-30] MEDS: PANTOprazole 40 MG TAB PO SCH (09:20)
[2019-01-30] MEDS: SULFAMETHOXAZOLE/TRIMETHOPRIM DS 800/160MG TAB PO SCH (09:20)
[2019-01-30] MEDS: predniSONE 20 MG TAB PO SCH (09:20)
[2019-01-30] MEDS: AMLODIPINE BESYLATE 5 MG TAB PO SCH (09:20)
[2019-01-30] MEDS: LISINOPRIL 20 MG TAB PO SCH (09:21)
[2019-01-30] MEDS: POLYETHYLENE (MIRALAX) 17 GM PACK PO SCH (09:21)
[2019-01-30] MEDS: ROFLUMILAST 500 MCG TAB PO SCH (09:21)
--- NOTE | 2019-01-30 10:40 | Palliative Care Progress Note ---
Date of Service January 30, 2019 Assessment & Plan (1) Goals of care, counseling/discussion: -Palliative care met with patient on Wednesday. -Plan is for home hospice. Case management getting that set up, discharge today or tomorrow. -Stopped into patient's room this morning, daughter was at bedside. Patient sitting in chair in no distress. -Roxanol has been working very well for patient per her report, no side effects such as over-sedation, respiratory depression, etc. -POLST form previously completed. -Medically, seems ready for discharge once logistics are arranged. -PPS 50%. (2) Acute on chronic respiratory failure with hypoxia and hypercapnia: (3) Cellulitis of arm, right: Subjective Patient feeling well and at her baseline. She is sitting in chair with daughter at bedside. Review of Systems Constitutional: no weakness Respiratory: + cough and + dyspnea on exertion Cardiovascular: no chest pain and no edema Gastrointestinal: no abdominal pain and no nausea Neurologic: no confusion Psychiatric: no anxiety Physical Exam Constitutional: + thin ENMT: external ear and nose normal, oropharynx normal Neck: normal visual inspection Respiratory: + labored breathing (mildly labored at rest) Cardiovascular: Rate/Rhythm: regular rate and regular rhythm Neurologic: moves all extremities and awake Psychiatric: A+Ox3, euthymic affect Results & Data Vital Signs (Past 12 Hours) Vital Signs Temp Pulse Pulse Resp BP BP Pulse Ox 01/30/19 08:08 37 C 75 20 161/76 H 96 01/30/19 07:09 69 20 97 01/29/19 23:35 37.0 C 66 21 123/63 97 01/29/19 23:30 01/29/19 22:54 64 18 98 Pulse Ox 01/30/19 08:08 01/30/19 07:09 01/29/19 23:35 01/29/19 23:30 97 01/29/19 22:54 Time Spent Midlevel 25 minutes with >50% of the time spent at bedside with patient and family discussing plan of care.
--- NOTE | 2019-01-30 14:43 | Discharge Summary ---
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 History obtained from ED note review and speaking to patient's as patient had just received Ativan and was sleeping. Her hot weather and humidity triggers her COPD despite the air conditioning running at home. Patient has not been outdoors. Patient has also been complaining of right elbow pain for about a week. She went to her PCP yesterday and was given an antib iotic which she may not have filled. Per patient has not complained of any headache, abdominal pain, diarrhea, vomiting, chest pain. Of note patient was in the ED on 01/17/2019 for worsening dyspnea and received prednisone as well as azithromycin. Her hemoglobin was noted to be 8.2 the patient had complained of any melena or blood in her stools at the time. Patient was hospitalized and discharged on 10/31/2018 for dyspnea requiring mechanical intubation for 36 hours. Her hemoglobin was 11.5 on 10/24/2018. ED: Received BiPAP, DuoNeb, Zosyn, Solu-Medrol and Ativan Discharge Exam Constitutional + thin; no acute distress Eyes + anicteric sclerae Neck trachea midline, no thyromegaly Respiratory normal respiratory effort; no labored breathing Auscultation: + diminished lung sounds (Barely audible breath sounds throughout) and + wheezes (Some faint inspiratory and expiratory wheezes bilaterally); no crackles and no rhonchi Cardiovascular RRR, no murmur, no edema Gastrointestinal (Abdomen) normal bowel sounds, soft, nontender, no hepatosplenomegaly Musculoskeletal Extremities: + extremities abnormal to inspection (Right elbow with mild erythema and small 0.5 cm open wound with scant white drainage), no cyanosis and no clubbing Neurologic moves all extremities and awake; no focal motor deficits Psychiatric A+Ox3, euthymic affect Discharge Data Allergies Allergy/AdvReac Type Severity Reaction Status Date / Time levofloxacin [From Levaquin] AdvReac Severe "goes Verified 01/26/19 02:44 crazy" Consultations 01/26/19 03:09 ED Decision to Admit Stat 01/26/19 05:51 Consult Gastroenterology Routine 01/26/19 09:44 Consult Pulmonology Routine 01/26/19 15:16 Consult Palliative Care Routine Hospital Course (1) COPD exacerbation: Unknown cause of exacerbation, though she appears to be very sensitive to heat. Continues to smoke which certainly plays a role. Somewhat improved since admission, but has not been out of bed yet - Continue scheduled albuterol nebulizer and scheduled inhaled corticosteroid in the form of budesonide twice daily -Continue scheduled formoterol nebulizer twice daily -No need for Advair while on scheduled nebulizers as above - Continue steroids -> Switched to prednisone on 01/27-continue 40 mg dose daily for now - Continue azithromycin and convert to p.o. for 2 more days at the 250 mg dose -She cannot tolerate NIPPV-continue supplemental O2 at 4 L nasal cannula -Continue morphine for air hunger but convert from IV to p.o. for transition to home- will make her dose Roxanol 5 mg p.o. every 3 hours as needed shortness of breath - Transitioning to hospice & more comfort care direction-awaiting palliative care consultation on Wednesday for discussion of goals of care for end-stage COPD -Continue Daliresp however pulmonology does not think it is of much benefit for her at this point (2) Anemia: Very likely due to upper GI bleed due to aspirin and meloxicam use. Acute blood loss anemia. - Evaluated by GI. Initial plan for EGD, however, given our current comfort direction and high risk, they have advised medical management and signed off. - Received 1 unit of PRBCs on 01/26 with hgb bump from 6.8 to 8.5. - On 01/27, down slightly to 8.2 but now hemoglobin up to 8.9-> Given plan for hospice on Wednesday, will not check any further CBC. GI has signed off. -Continue PPI PO BID. -Have since stopped NSAIDs and aspirin (3) Cellulitis of arm, right: Right elbow cellulitis versus bursitis. Extensive right elbow region erythema, warmth, edema and induration. - Initially on vancomycin with improvement in the erythema - Switched to Bactrim/Keflex with discussion from pharmacy on 01/27 -No need for Keflex in addition to Bactrim-we will discontinue Keflex-Bactrim should give great coverage for both staph and strep - Monitor area for continued improvement. Will need 10-day course. (End date: 02/05/2019) - Follow blood cultures from 01/26 -> No growth as of 01/28 (4) CAD (coronary artery disease): No chest pain. - Continue home metoprolol, lisinopril and atorvastatin - Hold home aspirin for presumed acute GI bleed (5) Anxiety: Significant anxiety over her shortness of breath and COPD. 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 No symptoms. -mild, sodium 135 (7) HTN (hypertension): BP significantly elevated today with a systolic in the low 200s - Continue BP meds as above - Hydralazine PRN -Add amlodipine 5 mg daily -Continue Toprol-XL 100 mg daily -Continue lisinopril 20 mg p.o. once daily -Weaning prednisone eventually which should help also (8) Tobacco abuse: Continues to smoke. Is not interested in cessation - Counseled on cessation -Continue nicotine replacement therapy (9) DVT prophylaxis: SCDs given concern for GI bleeding Disposition-advised patient to try getting out of bed to a chair today to see if she will be able to transition to hospice at home and have her symptoms controlled -Awaiting palliative care consultation on Wednesday Could be discharged home in the next 1 to 2 days Discharge Plan Discharge Items Patient Disposition: Hospice - Home Reason For Visit: MICHEL R EL[employer] PAIN Discharge Diagnosis: COPD Exacerbation Condition: Fair Discharge Goals: Decrease discomfort, Diagnostic testing, Improve disease control and Therapeutic intervention Activity: As commented below Lifting: Gradually increase as tolerated Bathing: No limitations Exercise/Sports: As tolerated Non-emergency contact: Primary Care Provider Call non-emergency contact if: you have any medication questions and your symptoms worsen Follow-up/Referrals: Malnida Escobedo [Primary Care Provider] - Diet: Regular Addtl Provider Instructions: You can take the oral morphine as needed for shortness of breath. Please finish out the course of prednisone as prescribed as well as the oral antibiotic for your elbow infection. You were started on a new medication to help control your blood pressure called amlodipine. This is to be taken once daily in the morning. You had a drop in your red blood cell count while you were here which may have been from bleeding in the stomach. Please do NOT take aspirin or meloxicam as this can worsen stomach bleeding. Your Hospice agency will be able to assist you with any future concerns you have after you return home. Prescriptions: New sulfamethoxazole-trimethoprim 800-160 mg Tablet 1 tab PO Q12 Qty: 10 RF: 0 nicotine 7 mg/24 hr Patch 24 Hour 14 mg transdermal HS Qty: 14 RF: 0 morphine concentrate 100 mg/5 mL (20 mg/mL) Solution 5 mg PO Q3H PRN (Reason: shortness of breath) Qty: 30 RF: 0 amlodipine [Norvasc] 5 mg Tablet 5 mg PO QAM Qty: 30 RF: 0 polyethylene glycol 3350 [Miralax] 17 gram Powder In Packet 17 g PO DAILY PRN (Reason: constipation) Qty: 30 RF: 0 prednisone 20 mg Tablet 30 mg PO DAILY Qty: 6 RF: 0 Continued acetaminophen [Tylenol Extra Strength] 500 mg Tablet 1,000 mg PO Q6H PRN (Reason: Pain) RF: 0 ipratropium-albuterol 0.5 mg-3 mg(2.5 mg base)/3 mL solution for nebulization 3 ml Inhalation QID PRN (Reason: Shortness Of Breath Or Wheezing) RF: 0 lisinopril 20 mg tablet 20 mg PO QAM RF: 0 alendronate 70 mg tablet 70 mg PO WK RF: 0 lorazepam 0.5 mg tablet 0.5 mg PO TID PRN (Reason: Anxiety) RF: 0 pantoprazole 40 mg tablet,delayed release (DR/EC) 40 mg PO QAM RF: 0 metoprolol succinate 100 mg tablet extended release 24 hr 100 mg PO QAM RF: 0 docusate sodium [Stool Softener] 100 mg Capsule 100 mg PO QAM RF: 0 Daliresp 500 mcg Tablet 250 mcg PO DAILY Qty: 30 RF: 2 atorvastatin 40 mg tablet 40 mg PO DAILY RF: 0 fluticasone propion-salmeterol [Wixela Inhub] 500-50 mcg/dose blister with device 1 inh inhalation Q12H RF: 0 albuterol sulfate [Ventolin HFA] 90 mcg/actuation HFA aerosol inhaler 2 puff inhalation QID PRN (Reason: Wheezing) RF: 0 escitalopram oxalate 5 mg tablet 5 mg PO DAILY RF: 0 Incruse Ellipta 62.5 mcg/actuation blister with device 1 inh inhalation DAILY RF: 0 Combivent Respimat 20-100 mcg/actuation mist 1 puff inhalation Q4H RF: 0 Florastor 250 mg capsule 250 mg PO BID Qty: 20 RF: 0 Discontinued aspirin 81 mg Tablet,Delayed Release (Dr/Ec) 81 mg PO QAM RF: 0 meloxicam 15 mg tablet 15 mg PO DAILY RF: 0 Stand-Alone Forms: [facility] Discharge Orders: Discharge Order (Routine); Ordered 01/30/19 Ordered By: Ana Maria Vaughn Admission Data Admit Date/Time: 01/26/19 04:25 Attending Provider: Ana Maria Vaughn Admit Provider: Damian Andrade Primary Care Provider: Malinda Escobedo Other Providers: Isidoro Bai ; Damian Andrade ; Walter Alvarenga Susan H ; Mckinley Pedersen Service: Medical Other Interventions: Discharge Summary Assessment (RN) Last Done: 01/30/19 13:19 Pending Studies at Discharge: No
[2019-01-31] MEDS ORDERED: ALENDRONATE SODIUM 70 MG TAB PO SCH (06:30)
== END 2019-01-30 15:20 | disposition hospice, home (50) | DRG 190 ==
LOC: ED 01:53 → 1E 04:25 → SUATTDRO 04:25 → 1E 04:46 → 2E 17:33 → 3N 01-27 15:24